=== PATIENT | male | born 1975 | race Two or more races ===

== ENCOUNTER 2024-06-04 22:58 | Inpatient (IN) | payer MEDICARE, MEDICAID, SELFPAY ==
[2024-06-04 23:00] VITALS: BMI 34.8
[2024-06-04 23:13] VITALS: BP 88/62; PULSE 129; RESP 19; TEMP 36.8; O2SAT 98
--- NOTE | 2024-06-04 23:24 | EKG_ITS ---
[facility] Test Date: 2024-06-04 Pat Name: HECTOR JUSTICE Department: Room: - Gender: Male Windows Administrator: : 1975 Requested By: Pacheco Gramajo Order Number: [id number] Reading MD: Pacheco Gramajo Measurements Intervals [place] Rate: 119 P: 64 MD: 146 QRS: 248 QRSD: 98 T: 64 QT: 319 QTc: 450 Interpretive Statements SINUS TACHYCARDIA RIGHT VENTRICULAR HYPERTROPHY [SOME/ALL OF: PROMINENT R IN V1, LATE TRANSITION, RAD, JENI, SSS] POSSIBLE ANTERIOR MYOCARDIAL INFARCTION , OF INDETERMINATE AGE [30 ms Q WAVE IN V3/V4, OR R < 0.2 mV IN V4] Compared to ECG 02/08/2021 18:41:30 Atrial abnormality now present Right ventricular hypertrophy now present Myocardial infarct finding now present Sinus rhythm no longer present Intraventricular conduction delay no longer present /store/S0/[id number].pdf
--- NOTE | 2024-06-04 23:24 | XR_ITS ---
Examination: AP chest single view Technique one AP portable upright chest single view Exam date and time: June 05, 2024 0010 hours Indications sepsis today FINDINGS: Early bibasilar pneumonia Normal heart size Mild osteopenia IMPRESSION: Early bibasilar pneumonia
--- NOTE | 2024-06-04 23:25 | PD.EDRME ---
Rapid Medical Screening Exam E Arrival date/time: 06/04/24 22:58 48 year old male present to ED for c/o vomiting, weakness. I have greeted and performed a focused initial assessment of this patient. A comprehensive ED assessment and evaluation of the patient, analysis of all test results, and completion of the medical decision making process will be conducted by additional ED providers. Chief Complaint: Fever Time Seen by Provider: 06/04/24 23:05 Vital signs: Vital Signs Temperature 98.2 F 06/04/24 23:13 Pulse Rate 129 H 06/04/24 23:13 Respiratory Rate 19 06/04/24 23:13 Blood Pressure 88/62 L 06/04/24 23:13 Pulse Oximetry (%) 98 06/04/24 23:13 Oxygen Delivery Method Room Air 06/04/24 23:13
[2024-06-05] VITALS (77 sets, daily range): BP systolic 56–126; BP diastolic 36–82; PULSE 75–118; RESP 7–99; TEMP 35.9–37.1; O2SAT 91–100
[2024-06-05 00:15] LABS: Lactate (Lactic Acid) 4.8 mMol/L (0.4-2.0)
[2024-06-05 00:17] LABS: Basophils # (Auto) 0.2 Thou/mm3 (0.0-0.2); Basophils % (Auto) 1 % (0-2.5); Eosinophils # (Auto) 0.3 Thou/mm3 (0.0-0.5); Eosinophils % (Auto) 2 % (0-10); Hematocrit 59.2 % (41.0-53.0); Hemoglobin 18.9 g/dL (13.5-16.0); Immature Granulocytes % (Auto) 1 % (0-0); Immature Granulocytes Auto 0.12 Thou/mm3 (0.00-0.00); Lymphocytes # (Auto) 3.5 Thou/mm3 (1.0-4.8); Lymphocytes % (Auto) 19 % (10-50); Mean Corpuscular HGB Conc 31.9 g/dl (31.0-37.0); Mean Corpuscular Hemoglobin 26.3 pg (25.0-35.0); Mean Corpuscular Volume 82 fL (80-100); Monocytes # (Auto) 1.5 Thou/mm3 (0.0-0.8); Monocytes % (Auto) 8 % (0-12); Neutrophils # (Auto) 13.4 Thou/mm3 (1.8-7.7); Neutrophils % (Auto) 70 % (37-80); Nucleated Red Blood Cell # 0.08 Thou/mm3 (0.00-0.00); Nucleated Red Blood Cell % 0 /100 WBC (0); Platelet Count 217 Thou/mm3 (140-440); RDW Standard Deviation 51.3 fL (35.1-43.9); Red Blood Count 7.19 Miln/mm3 (4.50-5.90)
[2024-06-05 00:54] LABS: INR 1.1 (0.9-1.3); Partial Thromboplastin Time 27.2 Seconds (22.0-36.0); Prothrombin Time 11.9 Seconds (9.0-12.2)
[2024-06-05] MEDS: SODIUM CHLORIDE 0.9% 250 ML 250 ML 500 ML IV (01:05)
[2024-06-05 01:20] LABS: Alanine Aminotransferase 30 U/L (10-49); Albumin, Serum 5.2 gm/dL (3.5-5.0); Albumin/Globulin Ratio 1.4 (1.2-2.2); Alkaline Phosphatase 280 U/L (46-116); Anion Gap 19 (7-16); Aspartate Amino Transferase 74 U/L (0-34); BUN/Creatinine Ratio 4 Ratio (12-20); Bilirubin,Total 3.8 mg/dL (0.3-1.2); Blood Urea Nitrogen 53 mg/dL (9-23); Calcium 10.8 mg/dL (8.3-10.6); Calcium (Corrected) 10.8 mg/dL (8.5-10.1); Carbon Dioxide 23.2 mMol/L (20.0-31.0); Chloride 90 mMol/L (98-107); Globulin 3.7 gm/dL (2.3-3.5); Glucose 211 mg/dL (74-106); Osmolality,Calculated 284 (275-295); Potassium 4.5 mMol/L (3.4-5.1); Procalcitonin 14.44 ng/ml (0.0-0.49); Sodium 132 mMol/L (136-145); Total Protein 8.9 gm/dL (5.7-8.2); eGFR 4 See Note
[2024-06-05 01:37] LABS: Creatinine (Component) 13.2 mg/dL (0.6-1.3)
[2024-06-05 01:38] LABS: Troponin I 0.078 ng/mL (0.0-0.045)
--- NOTE | 2024-06-05 01:40 | EDNOTE_ITS ---
ED Fever RME/HPI General Chief Complaint: Fever Stated Complaint: fever, vomitting, weakness since 9am Time Seen by Provider: 06/04/24 23:05 Arrival date/time: 06/04/24 22:58 Limitations: no limitations RME / HPI RME / HPI Narrative: 06/04/24 22:58 48 year old male present to ED for c/o vomiting, weakness. I have greeted and performed a focused initial assessment of this patient. A comprehensive ED assessment and evaluation of the patient, analysis of all test results, and completion of the medical decision making process will be conducted by additional ED providers. -------- Dr. Herron's Main ED Evaluation: 48yo male with pmhx DM, HTN, renal disease on HD (followed by Dr. Russ) presents to the ED for a chief complaint of weakness x this morning. Patient states he began feeling weak after having dialysis this morning, reporting he felt nauseous and had generalized body cramping. Also notes he's been vomiting and gaining weight. He states they've been needing to take more fluids off at dialysis. He denies any fever, chills or any other associated symptoms. Related Data Home Medications ?Medication ?Instructions ?Recorded ?Confirmed alprazolam 0.5 mg tablet 0.5 mg PO QDAY PRN Anxiety 08/21/23 08/21/23 hydralazine 100 mg tablet 100 mg PO TID 08/21/23 08/21/23 linagliptin 5 mg tablet (Tradjenta) 5 mg PO QDAY 08/21/23 08/21/23 omeprazole 40 mg capsule,delayed 40 mg PO QDAY 08/21/23 08/21/23 release sucroferric oxyhydroxide 500 mg 500 mg PO 08/21/23 chewable tablet (Velphoro) Previous Rx's ?Medication ?Instructions ?Recorded aspirin 81 mg tablet,delayed 81 mg PO QDAY #30 tabs 05/16/20 release atorvastatin 80 mg tablet 80 mg PO HS 30 days #30 tabs 04/25/22 ciprofloxacin HCl 500 mg tablet 500 mg PO BID #20 tabs 11/17/23 (Cipro) metronidazole 500 mg tablet 500 mg PO TID #21 tabs 11/17/23 Allergies Allergy/AdvReac Type Severity Reaction Status Date / Time pollen extracts Allergy Severe Sneezing Verified 11/17/23 05:26 sulfamethoxazole Allergy Severe Hives Verified 11/17/23 05:26 [From Bactrim] trimethoprim [From Bactrim] Allergy Hives Verified 11/17/23 05:26 Review of Systems Review of Systems Systems Reviewed: All systems reviewed, normal except as documented Past Medical History Past Medical History NEUROLOGIC: Negative Neurological Disorders or Seizures CARDIAC: Positive Cardiac Disorders, Hypercholesterolemia and Hypertension; Negative Congestive Heart Failure RESPIRATORY: Positive Sleep Apnea; Negative Chronic Obstructive Pulmonary Disease (COPD) GASTROINTESTINAL: Positive Obesity; Negative Gastrointestinal Disorders GENITOURINARY: Positive Genitourinary Disorders, Renal Disease and Dialysis (saturday, , saturday) MUSCULOSKELETAL: Negative Musculoskeletal Disorders ENT: Positive Cataracts ENDOCRINE: Positive Endocrine Disorders, Diabetes Mellitus Type 2 and Hypothyroidism; Negative Diabetes Mellitus Type 1 HEMATOLOGIC: Negative Blood Disorders OTHER HISTORY: Positive Chicken Pox; Negative Hospitalization, Autoimmune Disease, Falls, Blood Transfusions, Anesthesia Reactions, MRSA, Measles, Mumps or Cancer Family History FAMILY HISTORY: Positive Family Cardiac Disorders; Negative Family Psychiatric Problems, Family Respiratory Disorders, Family Gastrointestinal Problems, Family Cancer, Family Surgery or Family Anesthesia Reaction Surgical History SURGICAL: Positive Coronary Stent (x 6) and Amputation (left bka and) Social History SMOKING STATUS: Never smoker SUBSTANCE USE: does not use Physical Exam General Limitations: no limitations General appearance: alert and in no apparent distress Head Head exam: atraumatic Eye Eye exam: Present normal appearance, PERRL and EOMI; Absent scleral icterus ENT ENT exam: Present normal exam, normal oropharynx and mucous membranes dry Neck Neck exam: Present normal inspection, full ROM and trachea midline Chest Chest inspection: Present normal inspection and symmetric chest wall rise Respiratory Respiratory exam: Present normal lung sounds bilaterally Cardiovascular Cardiovascular exam: Present regular rate, normal rhythm and normal heart sounds Abdominal Exam Abdominal exam: Present soft and normal bowel sounds; Absent Mak's sign Extremities Exam Extremities exam: Present normal inspection and full ROM Back Exam Back exam: Present normal inspection and full ROM Neurological Exam Neurological exam: Present alert, oriented X3 and CN II-XII intact; Absent motor sensory deficit Psychiatric Psychiatric exam: Present normal affect and normal mood Skin Skin exam: Present warm, dry, intact and normal color ED Exam General Limitations: Present no limitations General appearance: Present alert and in no apparent distress Head Head exam: Present atraumatic Eye Eye exam: Present normal appearance, PERRL and EOMI; Absent scleral icterus ENT ENT exam: Present normal exam, normal oropharynx and mucous membranes dry Neck Neck exam: Present normal inspection, full ROM and trachea midline Chest Chest inspection: Present normal inspection and symmetric chest wall rise Respiratory Respiratory exam: Present normal lung sounds bilaterally Cardiovascular Cardiovascular exam: Present regular rate, normal rhythm and normal heart sounds Abdominal Exam Abdominal exam: Present soft and normal bowel sounds; Absent Mak's sign Extremities Exam Extremities exam: Present normal inspection and full ROM Back Exam Back exam: Present normal inspection and full ROM Neurological Exam Neurological exam: Present alert, oriented X3 and CN II-XII intact; Absent motor sensory deficit Psychiatric Psychiatric exam: Present normal affect and normal mood Skin Skin exam: Present warm, dry, intact and normal color Course Course Course Narrative: CXR is ordered for determining the etiology of weakness. Quality Measures none Orders Category Date Time Status Bedside Blood Glucose NOW Care 06/04/24 23:24 Active Bedside COVID-19 Antigen Test NOW Care 06/04/24 23:24 Active Bedside Influenza A&B Antigen Test NOW Care 06/04/24 23:24 Completed Insurance Claims Examiner Q4H START 00 Care 06/04/24 23:24 Active Insert IV NOW Care 06/04/24 23:24 Active Strict Intake and Output Routine Care 06/04/24 23:[address] abdomen pelvis wo con Stat Exams 06/05/24 02:31 Taken US gall bladder Stat Exams 06/05/24 02:31 Taken XR chest 1V SEPSIS PROTOCOL Stat Exams 06/04/24 23:24 Taken Blood Culture (Lab) Stat Lab 06/04/24 23:24 Received CBC Stat Lab 06/04/24 23:24 Completed Comprehensive Metabolic Panel Stat Lab 06/04/24 23:24 Completed Lactate (Lactic Acid) Stat Lab 06/04/24 23:24 Completed Lactic Acid, 3 HR Stat Lab 06/05/24 04:35 Completed Partial Thromboplastin Time Stat Lab 06/04/24 23:24 Completed Procalcitonin Stat Lab 06/04/24 23:24 Completed Prothrombin Time with INR Stat Lab 06/04/24 23:24 Completed Troponin I Stat Lab 06/04/24 23:24 Completed Troponin I Stat Lab 06/05/24 02:20 Completed Ondansetron Inj [Zofran Inj] Med 06/05/24 01:38 Discontinued 4 mg IV X1 ONE Sodium Chloride 0.9% 1000 ml [Ns] 2,259 ml Med 06/05/24 00:45 Discontinued IV 2,259 mls/hr Sodium Chloride 0.9% 250 ml [Ns] 250 ml Med 06/05/24 01:03 Discontinued IV 500 mls/hr Sodium Chloride 0.9% 250 ml [Ns] 250 ml Med 06/05/24 01:15 Discontinued IV 500 mls/hr EKG (RT) Stat RT 06/04/24 23:24 Draft Oxygen Delivery NOW RT 06/04/24 23:24 Active Reevaluation(s) Reevaluation #1: Discussed results with the patient at bedside. Patient is agreable to getting radiologic diagnostic tests. Time: 02:29 Vital Signs Vital signs: Vital Signs Temperature 98.2 F 06/04/24 23:13 Pulse Rate 129 H 06/04/24 23:13 Respiratory Rate 19 06/04/24 23:13 Blood Pressure 88/62 L 06/04/24 23:13 Pulse Oximetry (%) 98 06/04/24 23:13 Oxygen Delivery Method Room Air 06/04/24 23:13 Fever MDM Narrative MDM Narrative:: 0204: Repeat BP is 94/73, which is his baseline per the patient. Patient data External records reviewed:: [facility] previous records (Per chart review, patient was seen here on 11/17/23 for colitis.) Clinical information provided by:: patient Social determinants that could affect healthcare access:: none Patient has the following chronic illnesses:: HTN, HLD, DM, ESRD on HD How is presenting disease/condition affected by chronic disease/condition?: caused by Evaluation data The following diagnostics were reviewed and interpreted by me:: lab results, radiology exam(s) and EKG tracing(s) Lab and/or radiology exams considered but not ordered:: none Interpretation Summary: WBC count is elevated at 19.0, HnH is elevated, Creatinine is elevated at 13.2, Lactic Acid is elevated at 4.8, Total Bilirubin is elevated at 3.8, Troponin is elevated at 0.078, Procalcitonin is elevated at 14.44, Bedside COVID and Influenza are negative, according to my interpretation. CXR EKG done at 2336, sinus tachycardia, rate of 119, ------- [facility] Preliminary Report Draft Patient: HECTOR JUSTICE Med. Record#: [id number] Birthdate: 1975 Age/Sex: 48 / M Location: [facility] Attending Dr: Ordering Physician: Date of Service: Procedure(s): Accession Number(s): cc: ~ Right upper quadrant abdominal ultrasound. June 05, 2024 0300 hours Clinical history: Elevated LFTS, hypotension, abdominal pain today Comparison: None Findings: The evaluation is limited due to overlying bowel gas The liver measures 16.6 cm and demonstrates heterogeneous echogenicity. No intrahepatic biliary ductal dilatation. The main portal vein is patent and demonstrates hepatopetal flow. No gallbladder calculus, wall thickening or pericholecystic fluid is demonstrated. The common bile duct is normal in caliber at 2.7 mm. The pancreas is obscured by overlying bowel gas and not visualized. The inferior vena cava is unremarkable to the extent visualized. Impression: No sonographic evidence of cholelithiasis, acute cholecystitis or biliary obstruction. Heterogeneous echotexture of the liver, suggestive of liver parenchymal disease. Report Electronically Signed By: Agnes Thomas 06/05/2024 4:08:57 AM [EST] [facility] Preliminary Report Draft [id number] Birthdate: 1975 Age/Sex: 48 / M Location: [facility] Attending Dr: Ordering Physician: Date of Service: Procedure(s): Accession Number(s): cc: ~ CT scan of the abdomen and pelvis without intravenous contrast (axial sections with sagittal and coronal reformats) June 05, 2024 0411 hours Clinical History: 89 yo esrd, elevated LFT's Findings: There is mild heterogeneous attenuation of the lower lungs, suggestive of small airways disease. The liver, gallbladder, pancreas, spleen, kidneys and adrenals are unremarkable on this noncontrast study. No evidence of bowel obstruction. The appendix is within normal limits. There is no mesenteric or retroperitoneal adenopathy. The urinary bladder is unremarkable. There is no free fluid or free air. Degenerative changes are identified in the spine. Impression: No evidence of acute intra-abdominal or pelvic pathology. Other findings as described above. Report Electronically Signed By: Agnes Thomas 06/05/2024 5:02:47 AM [EST] Medications / Prescriptions Medications or Prescriptions considered but not ordered:: none Medication administrations:: Medication Administration History Discontinued Medications Sodium Chloride (Ns) 2,259 mls @ 2,259 mls/hr 30 ml/kg infuse over 60 min (2259 ml) IV .Q1H ONE Stop: 06/05/24 01:44 Last Admin: 06/05/24 01:03 Dose: Not Given Documented By: KG Non-Admin Reason: Discontinued Sodium Chloride (Ns) 250 mls @ 500 mls/hr IV .Q30M VINCENT Stop: 07/05/24 01:14 Sodium Chloride (Ns) 250 mls @ 500 mls/hr IV .Q30M ONE Stop: 06/05/24 01:32 Last Infusion: 06/05/24 01:35 Dose: Infused Documented By: Admin: 06/05/24 01:05 Dose: 500 mls/hr Documented By: KG Ondansetron HCl (Ondansetron Inj 2 Mg/Ml Inj 2 Ml) 4 mg IV X1 ONE; Protocol Stop: 06/05/24 01:39 Last Admin: 06/05/24 01:56 Dose: 4 mg Documented By: KG see above Consultations Consultation(s) initiated? (list below): No Diagnosis Fever Differential Diagnosis: other (viral syndrome, enteritis, electrolyte ab, postop hypotension from dialysis) Most likely diagnosis given after review of the tests above:: pending at sign out. Admission Indicated Admission indicated?: not indicated Admission Request Was there a request for admission?: No Disposition Plan Disposition Plan: other (specify) (Signed out to Dr. Edwards at 0600 pending re- evaluation and final disposition.) Discharge Plan Plan Disposition Comment: Stable at signout Prescriptions/Referrals Prescriptions/Med Rec: No Action aspirin 81 mg tablet,delayed release (DR/EC) 81 mg PO QDAY Qty: 30 0RF Rx Instructions: Please start no sooner than 05/19/20. alprazolam 0.5 mg Tablet 0.5 mg PO QDAY PRN (Reason: Anxiety) Hold Instructions: Resume on 08/22/23. omeprazole 40 mg capsule,delayed release(DR/EC) 40 mg PO QDAY hydralazine 100 mg tablet 100 mg PO TID Tradjenta 5 mg tablet 5 mg PO QDAY Patient Comments: TAKE 1 TABLET BY MOUTH EVERY DAY Velphoro 500 mg tablet,chewable 500 mg PO Patient Comments: TAKE 2 TABLETS BY MOUTH WITH MEALS THREE TIMES DAILY ciprofloxacin HCl [Cipro] 500 mg tablet 500 mg PO BID Qty: 20 0RF metronidazole 500 mg tablet 500 mg PO TID Qty: 21 0RF atorvastatin 80 mg tablet 80 mg PO HS 30 Days Qty: 30 2RF Referrals: Conrad Garduno MD [Primary Care Provider] - In 1 week Problem List Clinical Impression: Sepsis, End stage renal disease, Elevated lactic acid level, Elevated troponin Patient/Caregiver Discharge Instructions Print Language: Ghanaian
[2024-06-05] MEDS: ONDANSETRON INJ 2 MG/ML INJ 2 ML 4 MG IV (01:56)
--- NOTE | 2024-06-05 02:05 | PC.NURSE ---
Dr. Herron at the bedside.
--- NOTE | 2024-06-05 02:30 | PC.NURSE ---
Dr. Herron at the bedside.
--- NOTE | 2024-06-05 02:31 | XR_ITS ---
Examination: CT abdomen and pelvis without contrast. Coronal 3-D reconstructions. Sagittal 2-D reconstructions. Date and time of exam:June 05, 2024 at 0411 hrs. Comparison December 26, 2023 Indications: Onset abdominal pain fever vomiting weakness beginning 9:00 AM June 04, 2024 CTDI: vol (mGy): 13.1 DLP: (mGycm): 941 Technique: Axial images of the abdomen have been obtained, 3 mm slice thickness Intravenous contrast material has not been administered. Low dose protocols were performed. One or more of the following dose reduction techniques were used; automated exposure control, adjustment of the mA and/or KV according to patient size, use of iterative reconstruction technique. Findings: Heavy coronary artery calcification No visualized liver or splenic lesion No gallstones No pancreatic or adrenal mass Aorta normal size Atrophic kidneys with renal arterial calcification, no hydronephrosis or ureteral calculi Normal appendix No bowel obstruction No diverticulitis Contracted urinary bladder Transverse prostate dimension 4 cm The osseous structures are intact with degenerative change lumbar spine and mild old wedging thoracolumbar vertebral bodies Impression: Atrophic kidneys No acute process in the abdomen or pelvis
--- NOTE | 2024-06-05 02:31 | XR_ITS ---
Examination: Abdomen sonogram, Limited Date and time of exam: June 05, 2024 at 0300 hrs. Indications: Abdominal pain after dialysis today, elevated liver function tests on laboratory examination June 04, 2024 Technique: Real-time ureña scale transabdominal sonographic images of the upper abdomen obtained. Findings: Negative for gallstones Gallbladder wall 0.30 cm Common bile duct 0.30 cm no stones Pancreas obscured by bowel gas Liver 16.6 cm fatty infiltration no focal liver lesions Normal hepatopedal portal venous flow Patent IVC Impression: Negative for cholelithiasis No gallbladder wall edema or significant thickening No common bile duct stones Fatty liver
--- NOTE | 2024-06-05 03:05 | PC.NURSE ---
line service technician at the bedside for exam.
[2024-06-05 03:07] LABS: Reflex Lactate? Y
[2024-06-05 03:39] LABS: Troponin I 0.075 ng/mL (0.0-0.045)
--- NOTE | 2024-06-05 04:06 | PC.NURSE ---
Pt to CT scan via [facility] at this time.
--- NOTE | 2024-06-05 04:09 | PRELIM_ITS ---
Right upper quadrant abdominal ultrasound. June 05, 2024 0300 hours Clinical history: Elevated LFT S, hypotension, abdominal pain today Comparison: NoneFindings:The evaluation is limited due to overl melissa bowel gas The liver measures 16.6 cm and demonstrates heterogeneous echogenicity. No intrahepati c biliary ductal dilatation. The main portal vein is patent and demonstrates hepatopetal flow. No gal lbladder calculus, wall thickening or pericholecystic fluid is demonstrated. The common bile duct is normal in caliber at 2.7 mm. The pancreas is obscured by overlying bowel gas and not visualized. The inferior vena cava is unremarkable to the extent visualized. Impression:No sonographic evidence of ch olelithiasis, acute cholecystitis or biliary obstruction. Heterogeneous echotexture of the liver, sug gestive of liver parenchymal disease. Report Electronically Signed By: Agnes Thomas 06/05/2024 4:08:57 AM [EST]
[2024-06-05 04:50] LABS: Lactic Acid, 3 HR 2.5 mMol/L (0.4-2.0)
--- NOTE | 2024-06-05 05:03 | PRELIM_ITS ---
CT scan of the abdomen and pelvis without intravenous contrast (axial sections with sagittal and daily nal reformats) June 05, 2024 0411 hours Clinical History: 89 yo esrd, elevated LFT's Findings:The re is mild heterogeneous attenuation of the lower lungs, suggestive of small airways disease. The jeremiah er, gallbladder, pancreas, spleen, kidneys and adrenals are unremarkable on this noncontrast study.No evidence of bowel obstruction. The appendix is within normal limits. There is no mesenteric or retro peritoneal adenopathy.The urinary bladder is unremarkable. There is no free fluid or free air.Degener ative changes are identified in the spine. Impression:No evidence of acute intra-abdominal or pelvic pathology.Other findings as described above. Report Electronically Signed By: Agnes Thomas 06/05/2024 5 :02:47 AM [EST]
--- NOTE | 2024-06-05 06:23 | EDNOTE_ITS ---
Emergency Room Addendum Addendum Narrative: 0600: Care assumed from Dr. Herron, the previous shift emergency physician. Past medical, surgical, social and family history reviewed. Vitals and home medications reviewed. I will assume the care of the patient at this time, pending re-evaluation and final disposition. Please refer to the emergency department record for history and examination from initial visit.? Physical exam by me shows patient under no acute distress at this time. Patient had increased liver enzymes, pending radiology as a signout. However, looking at previous labs, lactic acid was 4.8 and WBC 19, patient met sepsis criteria on arrival, plan for redrawing labs and reevaluation. Orders made at this time are congruent with ED Adult Sepsis Order List. Re-evaluation is to be completed. 1048: Fluids started. 1120: Sepsis reassessment performed consisting of lab review, vitals, physical exam including auscultation of heart, lungs, and visual evaluation of capillary refills, mucosal membranes and extremities. 1130: Discussed test HPI, PMHx, lab, radiology results and/or management with hospitalist. Will admit for further evaluation and management. Accepts patient for admission. CRITICAL CARE: TIME: 30 minutes for sepsis The high probability of sudden, clinically significant deterioration in the patient?s condition required the highest level of my preparedness to intervene urgently. The services I provided to this patient were to treat and/or prevent clinically significant deterioration. Services included the following: chart data review, reviewing nursing notes and/or old charts, documentation time, community resource consultant collaboration regarding findings and treatment options, medication orders and management, direct patient care, vital sign assessments and ordering, interpreting and reviewing diagnostic studies and lab tests. Aggregate critical care time includes only time during which I was engaged in work directly related to the patient?s care, as described above, whether at bedside or elsewhere in the Emergency Department. It did not include time spent performing other reported procedures or the services of residents, students, nurses or physician assistants. RADIOLOGY Procedure(s): US gall bladder Accession Number(s): [id number] cc: Conrad Garduno MD; Judd Welch MD; Terese Herron MD~ Examination: Abdomen sonogram, Limited Date and time of exam: June 05, 2024 at 0300 hrs. Indications: Abdominal pain after dialysis today, elevated liver function tests on laboratory examination June 04, 2024 Technique: Real-time ureña scale transabdominal sonographic images of the upper abdomen obtained. Findings: Negative for gallstones Gallbladder wall 0.30 cm Common bile duct 0.30 cm no stones Pancreas obscured by bowel gas Liver 16.6 cm fatty infiltration no focal liver lesions Normal hepatopedal portal venous flow Patent IVC Impression: Negative for cholelithiasis No gallbladder wall edema or significant thickening No common bile duct stones Fatty liver Dictated By: Judd Welch MD Procedure(s): CT abdomen pelvis wo con Accession Number(s): [id number] cc: Conrad Garduno MD; Judd Welch MD; Terese Herron MD~ Examination: CT abdomen and pelvis without contrast. Coronal 3-D reconstructions. Sagittal 2-D reconstructions. Date and time of exam:June 05, 2024 at 0411 hrs. Comparison December 26, 2023 Indications: Onset abdominal pain fever vomiting weakness beginning 9:00 AM June 04, 2024 CTDI: vol (mGy): 13.1 DLP: (mGycm): 941 Technique: Axial images of the abdomen have been obtained, 3 mm slice thickness Intravenous contrast material has not been administered. Low dose protocols were performed. One or more of the following dose reduction techniques were used; automated exposure control, adjustment of the mA and/or KV according to patient size, use of iterative reconstruction technique. Findings: Heavy coronary artery calcification No visualized liver or splenic lesion No gallstones No pancreatic or adrenal mass Aorta normal size Atrophic kidneys with renal arterial calcification, no hydronephrosis or ureteral calculi Normal appendix No bowel obstruction No diverticulitis Contracted urinary bladder Transverse prostate dimension 4 cm The osseous structures are intact with degenerative change lumbar spine and mild old wedging thoracolumbar vertebral bodies Impression: Atrophic kidneys No acute process in the abdomen or pelvis Dictated By: Judd Welch MD Procedure(s): XR chest 1V SEPSIS PROTOCOL Accession Number(s): [id number] cc: Conrad Garduno MD; Judd Welch MD; Pacheco Quinones PA-C~ Examination: AP chest single view Technique one AP portable upright chest single view Exam date and time: June 05, 2024 0010 hours Indications sepsis today FINDINGS: Early bibasilar pneumonia Normal heart size Mild osteopenia IMPRESSION: Early bibasilar pneumonia Dictated By: Judd Welch MD
[2024-06-05 08:55] LABS: Basophils # (Auto) 0.1 Thou/mm3 (0.0-0.2); Basophils % (Auto) 1 % (0-2.5); Eosinophils # (Auto) 0.2 Thou/mm3 (0.0-0.5); Eosinophils % (Auto) 1 % (0-10); Hematocrit 56.2 % (41.0-53.0); Hemoglobin 17.8 g/dL (13.5-16.0); Immature Granulocytes % (Auto) 1 % (0-0); Immature Granulocytes Auto 0.09 Thou/mm3 (0.00-0.00); Lymphocytes # (Auto) 2.5 Thou/mm3 (1.0-4.8); Lymphocytes % (Auto) 15 % (10-50); Mean Corpuscular HGB Conc 31.7 g/dl (31.0-37.0); Mean Corpuscular Hemoglobin 26.3 pg (25.0-35.0); Mean Corpuscular Volume 83 fL (80-100); Monocytes # (Auto) 1.6 Thou/mm3 (0.0-0.8); Monocytes % (Auto) 10 % (0-12); Neutrophils # (Auto) 12.2 Thou/mm3 (1.8-7.7); Neutrophils % (Auto) 73 % (37-80); Nucleated Red Blood Cell # 0.05 Thou/mm3 (0.00-0.00); Nucleated Red Blood Cell % 0 /100 WBC (0); Platelet Count 212 Thou/mm3 (140-440); RDW Standard Deviation 51.9 fL (35.1-43.9); Red Blood Count 6.78 Miln/mm3 (4.50-5.90); White Blood Count 16.8 Thou/mm3 (3.8-10.6)
[2024-06-05 09:23] LABS: Alanine Aminotransferase 23 U/L (10-49); Albumin, Serum 5.2 gm/dL (3.5-5.0); Albumin/Globulin Ratio 1.5 (1.2-2.2); Alkaline Phosphatase 246 U/L (46-116); Anion Gap 18 (7-16); Aspartate Amino Transferase 62 U/L (0-34); BUN/Creatinine Ratio 4 Ratio (12-20); Bilirubin,Total 3.3 mg/dL (0.3-1.2); Blood Urea Nitrogen 59 mg/dL (9-23); Calcium 10.9 mg/dL (8.3-10.6); Calcium (Corrected) 10.9 mg/dL (8.5-10.1); Carbon Dioxide 23.1 mMol/L (20.0-31.0); Chloride 89 mMol/L (98-107); Creatinine (Component) 13.3 mg/dL (0.6-1.3); Estimated Creatinine Clearance 8.9 mL/min (>60); Globulin 3.5 gm/dL (2.3-3.5); Glucose 94 mg/dL (74-106); Osmolality,Calculated 277 (275-295); Procalcitonin 16.23 ng/ml (0.0-0.49); Sodium 130 mMol/L (136-145); Total Protein 8.7 gm/dL (5.7-8.2); eGFR 4 See Note
[2024-06-05] MEDS: SODIUM CHLORIDE 0.9% 250 ML 250 ML 125 ML IV (10:48)
[2024-06-05] MEDS: PIPER/TAZO 3.375 GM 3.375 GM/50 ML BAG IV (10:49)
[2024-06-05] MEDS: Vancomycin Inj 1,000 MG in SODIUM CHLORIDE 0.9% 250 ML 250 ML 150 MG IV (11:16)
[2024-06-05] MEDS: AZITHROMYCIN 250 MG TABLET 500 MG PO (13:16)
[2024-06-05] MEDS: PANTOPRAZOLE INJ 40 MG VIAL IVP (13:17)
[2024-06-05] MEDS: cefTRIAXone/D5w 1gm IV premix 50 ML IV (13:17)
[2024-06-05] MEDS: DEXTROSE 50%-WATER INJ 50 ML SYRINGE IV (13:20)
[2024-06-05] MEDS: INSULIN HUM REGULAR 1 UNIT/0.01 ML (PER UNIT) 5 UNIT IV (13:33)
[2024-06-05 13:37] LABS: Potassium 5.6 mMol/L (3.4-5.1)
[2024-06-05] MEDS: HEPARIN SOD INJ 5000 UNIT/ML VIAL SC ×2 (13:42→22:31)
--- NOTE | 2024-06-05 15:11 | ESHP_ITS ---
<Statement entered by Alivia Story MD - 06/05/24 20:51> I discussed with and supervised my co-resident involved in the care of this patient. I agree with the assessment and plan as documented above. Alivia Story,PGY-3 Disclaimer: Despite multiple revisions, due to the dictation software being used, the document below may not be free of grammatical errors including phonetic/typographic errors. However, this does not deter from our commitment to providing health care in the patient's best interest in mind. Documentation for date of: 06/05/24 HPI History of Present Illness Chief complaint: N/V/weakness History of present illness: 48-year-old male with past medical history of DM2, ESRD (on hemodialysis), hypertension, CAD s/p stents, and hyperlipidemia was admitted to hospital on 06/05/2024 after coming to the ED with complaints of nausea, vomiting, and weakness since the day prior to admission. Patient stated that he has been having similar symptoms right after dialysis in the past, but at this time his nausea and vomiting was a lot worse than prior times and he decided to come to the ER. Patient denies any chest pain, shortness of breath, syncopal episode, changes in bowels or urination, abdominal pain, or cough. During assessment patient had last hemodialysis yesterday he states that his AV fistula usually clots, but has been used without any issues upto now. ED course: Patient came in afebrile, tachycardic and hypotensive. Initial labs were relevant for leukocytosis (19), Hgb (18.9), hyponatremia (132), hyperkalemia (5.6), elevated anion gap (18), BUN 59, creatinine 13.3, lactic acidosis (4.8 and down trended to 2.5), hyperbilirubinemia (3.8 and down trended to 3.3), elevated troponins 0.078 and down trended to 0.075, and procalcitonin elevated at 16.23. Initial imaging included chest x-ray which showed bibasilar pneumonia, abdomen/pelvis CT which did not show any acute process in the abdomen or pelvis, and gallbladder ultrasound which did not show any cholelithiasis or cholecystitis. PMH: As above Social Hx: Denies any current smoking, drugs, or alcohol. Prior use of cocaine in the past and smoking once in a while in his late teens. Surgical Hx: Right BKA, left toe amputation (), and cataracts Review of Systems Review of Systems Narrative Review of Systems: Constitutional: Denies sweats, Denies weight loss/gain, Denies fever, Denies chills. HEENT: Denies hearing loss, Denies ear pain, Denies postnasal drip, Denies double vision, Denies blurry vision. Respiratory: Denies shortness of breath, Denies cough, Denies wheezing. Cardiovascular: Denies chest pain, Denies palpitations, Denies sudden loss of consciousness. GI: Denies blood in stool, Denies constipation, Denies abdominal pain, Denies difficulty swallowing, Admits nausea and vomit. : Denies urinary incontinence, Denies pain while urinating, Denies increased urinary frequency. MSK: Denies joint pain, Denies joint swelling, Denies numbness. Skin: Denies rash, Denies itching, Denies easy bruising. Neuro: Denies headaches, Denies dizziness, Denies seizures. Past Medical History Past Medical History NEUROLOGIC: Negative Neurological Disorders or Seizures CARDIAC: Positive Cardiac Disorders, Hypercholesterolemia and Hypertension; Negative Congestive Heart Failure RESPIRATORY: Positive Sleep Apnea; Negative Chronic Obstructive Pulmonary Disease (COPD) GASTROINTESTINAL: Positive Obesity; Negative Gastrointestinal Disorders GENITOURINARY: Positive Genitourinary Disorders, Renal Disease and Dialysis (saturday, , saturday) MUSCULOSKELETAL: Negative Musculoskeletal Disorders ENT: Positive Cataracts ENDOCRINE: Positive Endocrine Disorders, Diabetes Mellitus Type 2 and Hypothyroidism; Negative Diabetes Mellitus Type 1 HEMATOLOGIC: Negative Blood Disorders OTHER HISTORY: Positive Chicken Pox; Negative Hospitalization, Autoimmune Disease, Falls, Blood Transfusions, Anesthesia Reactions, MRSA, Measles, Mumps or Cancer Family History FAMILY HISTORY: Positive Family Cardiac Disorders; Negative Family Psychiatric Problems, Family Respiratory Disorders, Family Gastrointestinal Problems, Family Cancer, Family Surgery or Family Anesthesia Reaction Surgical History SURGICAL: Positive Coronary Stent (x 6) and Amputation (left bka and) Social History SMOKING STATUS: Never smoker SUBSTANCE USE: does not use Exam Vital Signs Temp Pulse Resp BP Pulse Ox O2 Del Method 97.5 F 103 H 18 66/54 L 91 L Room Air 06/05/24 14:23 06/05/24 15:05 06/05/24 15:05 06/05/24 15:05 06/05/24 15:05 06/05/24 15:05 Narrative Exam General: A/O x3, no acute distress, well-nourished, well-developed Eyes: PERRL, EOMI. Anicteric, vision grossly intact. Ears: No ear pain, no ear discharge, Hearing grossly intact. Nose: No nasal discharge. Mouth/Throat: Moist mucous membranes, no redness, no lesions. Neck: Neck supple, non-tender, no cervical lymphadenopathy. Lungs: Clear CHARLA to auscultation and percussion, No accessory muscle use. Cardio: Normal S1/S2, regular rhythm, no murmurs, no JVD or carotid bruits. Abdomen: Soft, non-tender, no palpable masses, peristalsis present, no guarding or rebound. Extremities: Symmetrical, no peripheral edema , non-tender, peripheral pulses present L LE. 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 Skin: No rashes, no lesions, warm to touch. Neuro: No focal neurological deficits. motor and sensory intact Psych: Cooperative, appropriate mood and effect. Results: Labs 06/06/24 05:33 06/06/24 05:33 Labs: Short CBC 06/04/24 06/05/24 Range/Units 00:00 04:35 WBC 19.0 H 16.8 H (3.8-10.6) Thou/mm3 Hgb 18.9 H* 17.8 H* (13.5-16.0) g/dL Hct 59.2 H 56.2 H (41.0-53.0) % Plt Count 217 212 (140-440) Thou/mm3 BMP 06/04/24 06/05/24 00:00 04:35 Sodium 132 L 130 L Potassium 4.5 5.6 H D Chloride 90 L 89 L Carbon Dioxide 23.2 23.1 BUN 53 H 59 H Creatinine 13.2 H* 13.3 H* Glucose 211 H 94 D Calcium 10.8 H 10.9 H Cardiac Enzymes 06/04/24 06/05/24 Range/Units 00:00 02:20 Troponin I 0.078 H* 0.075 H* (0.0-0.045) ng/mL Liver Function 06/04/24 06/05/24 Range/Units 00:00 04:35 Total Bilirubin 3.8 H 3.3 H D (0.3-1.2) mg/dL AST 74 H 62 H (0-34) U/L ALT 30 23 (10-49) U/L Alkaline Phosphatase 280 H 246 H D (46-116) U/L Albumin 5.2 H 5.2 H (3.5-5.0) gm/dL Quality Measures Quality Measures none Medications Home Medications and Allergies Home Medications ?Medication ?Instructions ?Recorded ?Confirmed ?Type linagliptin 5 mg tablet (Tradjenta) 5 mg PO QDAY 08/21/23 06/05/24 History omeprazole 40 mg capsule,delayed 40 mg PO QDAY 08/21/23 06/05/24 History release sucroferric oxyhydroxide 500 mg 500 mg PO TID 08/21/23 06/05/24 History chewable tablet (Velphoro) apixaban 2.5 mg tablet (Eliquis) 2.5 mg PO BID 06/05/24 06/05/24 History midodrine 5 mg tablet 5 mg PO TID 06/05/24 06/05/24 History Allergies Allergy/AdvReac Type Severity Reaction Status Date / Time pollen extracts Allergy Severe Sneezing Verified 11/17/23 05:26 sulfamethoxazole Allergy Severe Hives Verified 11/17/23 05:26 [From Bactrim] trimethoprim [From Bactrim] Allergy Hives Verified 11/17/23 05:26 Visit Medications Acetaminophen (Acetaminophen 325 Mg Tablet) 650 mg PO Q6H PRN PRN Reason: pain and Fever >100.4 Stop: 07/05/24 12:17 Hydrocodone Bitart/Acetaminophen (Hydrocodone/Apap 5/325 Tablet) 1 tab PO Q4HR PRN PRN Reason: PAIN SCALE 4-10(Mod-Sev Stop: 06/10/24 12:22 Azithromycin (Azithromycin 250 Mg Tablet) 500 mg PO QDAY VINCENT Stop: 06/12/24 12:29 Last Admin: 06/05/24 13:16 Dose: 500 mg Dextrose (Dextrose 50%-Water Inj 50 Ml Syringe) 25 ml IV Q15MIN PRN PRN Reason: BG 50-70 responsive npo pt Stop: 07/05/24 12:22 Dextrose (Dextrose 50%-Water Inj 50 Ml Syringe) 50 ml IV Q15MIN PRN PRN Reason: BG <50 OR BG <70 & pt unresponsive Stop: 07/05/24 12:22 Glucagon (Glucagon Inj 1 Mg Vial) 1 mg IM Q15MIN PRN PRN Reason: BG <70, and no IV access Heparin Sodium (Porcine) (Heparin Sod Inj 5000 Unit/Ml Vial) 5,000 unit SC Q8HR [facility] Stop: 06/19/24 13:59 Last Admin: 06/05/24 13:42 Dose: 5,000 unit Ceftriaxone Sodium/Dextrose (Rocephin/D5w 1gm Iv Premix) 50 mls @ 100 mls/hr IV QDAY [facility] Stop: 06/12/24 12:29 Last Infusion: 06/05/24 14:00 Dose: Infused Sodium Chloride (Ns) 250 mls @ 999 mls/hr IV .Q16M ONE Stop: 06/05/24 15:24 Insulin Human Lispro (Insulin Lispro (Admelog) 1 Unit/0.01 Ml Unit) 0 unit SC ACHS [facility]; Protocol Stop: 07/05/24 16:59 Ondansetron HCl (Ondansetron Inj 2 Mg/Ml Inj 2 Ml) 4 mg IV Q6H PRN; Protocol PRN Reason: NAUSEA OR VOMITING Stop: 07/05/24 12:22 Pantoprazole Sodium (Pantoprazole Inj 40 Mg Vial) 40 mg IVP QDAY [facility] Stop: 07/05/24 12:29 Last Admin: 06/05/24 13:17 Dose: 40 mg Sennosides (Senna Tablet) 1 tab PO QDAY PRN; Protocol PRN Reason: constipation Stop: 07/05/24 12:22 Discontinued Medications Dextrose (Dextrose 50%-Water Inj 50 Ml Syringe) 50 ml IV X1 ONE Stop: 06/05/24 12:29 Last Admin: 06/05/24 13:20 Dose: 50 ml Sodium Chloride (Ns) 2,259 mls @ 2,259 mls/hr 30 ml/kg infuse over 60 min (2259 ml) IV .Q1H ONE Stop: 06/05/24 01:44 Last Admin: 06/05/24 01:03 Dose: Not Given Sodium Chloride (Ns) 250 mls @ 500 mls/hr IV .Q30M [facility] Stop: 07/05/24 01:14 Sodium Chloride (Ns) 250 mls @ 500 mls/hr IV .Q30M ONE Stop: 06/05/24 01:32 Last Infusion: 06/05/24 01:35 Dose: Infused Vancomycin HCl 1,000 mg/ (Sodium Chloride) 250 mls @ 150 mls/hr IV X1 ONE Stop: 06/05/24 12:08 Last Infusion: 06/05/24 13:49 Dose: Infused Piperacillin/Tazobactam/Dextrose (Zosyn) 3.375 gm in 50 mls @ 100 mls/hr IV X1 ONE Stop: 06/05/24 10:58 Last Infusion: 06/05/24 11:41 Dose: Infused Sodium Chloride (Ns) 250 mls @ 125 mls/hr IV .Q2H ONE Stop: 06/05/24 12:46 Last Infusion: 06/05/24 13:49 Dose: Infused Insulin Human Regular (Insulin Hum Regular 1 Unit/0.01 Ml (Per Unit)) 5 unit IV X1 ONE Stop: 06/05/24 12:29 Last Admin: 06/05/24 13:33 Dose: 5 unit Ondansetron HCl (Ondansetron Inj 2 Mg/Ml Inj 2 Ml) 4 mg IV X1 ONE; Protocol Stop: 06/05/24 01:39 Last Admin: 06/05/24 01:56 Dose: 4 mg Assessment & Plan Plan 48-year-old male with past medical history of DM2, ESRD (on hemodialysis), hypertension, CAD s/p stents, and hyperlipidemia was admitted to hospital on 06/05/2024 for community-acquired pneumonia, hypertension, generalized weakness, and need for hemodialysis. #Community-acquired pneumonia #Leukocytosis #Lactic acidosis #Hypotension #Concern for sepsis ? Patient met SIRS criteria 2 out of 4 with tachycardia and leukocytosis. ?Patient was hypotensive, but maintain a MAP above 65 initially ? Lactic acid was 4.8 and down trended to 2.5 ?Procalcitonin 16.23 ?chest x-ray showed bibasilar pneumonia Plan: ? Started vancomycin every other day post hemodialysis [06/06/2024?] ? Start Zosyn 2.25 every 8 hours [06/05/2024?] ?Continue midodrine 10 mg 3 times daily ?Blood and sputum culture ordered ? Will continue to monitor #ESRD (on hemodialysis) #High anion gap metabolic acidosis #Electrolyte imbalance #Hyperkalemia #Hyponatremia #Hypochloremia ? Patient gets hemodialysis as an outpatient and last hemodialysis was on the day prior to admission. ?BUN 59 and creatinine 13.3 ? Patient sodium was 130, potassium 5.6, chloride 89, anion gap 18 ? Elevated anion gap most likely in the setting of uremia and lactic acidosis ? EKG showed sinus tachycardia Plan: ? Gave 5 units of regular insulin and amp of D50 ?Pending nephrology recommendations on hemodialysis schedule ? Nephrology consulted, appreciate recommendations ? Will continue to monitor #NSTEMI likely type II demand ischemia ? Patient's troponin was initially 0.078 and down trended to 0.075 ? Patient has chronically elevated troponins ? EKG did not show any acute ST changes Plan: ? Will continue to monitor #Hyperbilirubinemia ? Patient's initial T bilirubin was 3.8 and then down trended to 3.3 ? Gallbladder ultrasound was unremarkable ? Patient had no right upper quadrant pain Plan: ? Will continue to monitor #DM2 ?A1c 5.7 on 2021 ? Glucose 204 Plan: ? ISS ? Accu-Cheks and hypoglycemia protocol ordered ? A1c ordered for morning labs ? Will continue to monitor #CAD s/p stents #Hyperlipidemia ?Will resume patient's atorvastatin and aspirin once med reconciliation is done #Hypertension ?Patient blood pressure has been low therefore we will hold off any antihypertensive medication for now Disposition: Patient admitted to telemetry. Diet: Carb low GI prophylaxis: not indicated DVT prophylaxis: heparin sc Code:Full Case disclosed with Attending Dr. Morales and My senior Dr. Story PGY3. Chalo العراقي PGY1 Attending Provider Attestation/Addendum I have discussed and was present for the essential components of the history, physical examination, diagnosis, and treatment plan with the resident. I agree with the patient's care as documented by the resident and amended herein by me. Ant Morales DO. Although this document has been carefully reviewed, there may still be some phonetic and other typographical errors. These errors are purely grammatical due to imperfections in the software program and should not be construed in any way to compromise the substance of the patient's medical care during this visit.
[2024-06-05] MEDS: SODIUM CHLORIDE 0.9% 250 ML 250 ML 999 ML IV (15:26)
[2024-06-05] MEDS: MIDODRINE 5 MG TABLET PO (17:34)
[2024-06-05] MEDS: SODIUM CHLORIDE 0.9% 500 ML 500 ML 999 ML IV ×2 (17:35→18:00)
[2024-06-05] MEDS: PIPERACILLIN/TAZO 2.25GM INJ 2.25 GM in SODIUM CHLORIDE 0.9% (P) 50 ML IV ×2 (17:35→22:31)
[2024-06-05] MEDS: MIDODRINE 5 MG TABLET 10 MG PO (20:15)
[2024-06-05] MEDS: INSULIN LISPRO (AdmeLOG) 1 UNIT/0.01 ML UNIT SC (22:31)
[2024-06-06] VITALS (26 sets, daily range): BP systolic 77–109; BP diastolic 44–67; PULSE 72–103; RESP 14–94; TEMP 35.9–36.6; O2SAT 93–98; BMI 34.8; BMI 34.9
--- NOTE | 2024-06-06 04:11 | PC.NURSE ---
Addendum entered by Claire Salomon RN 06/06/24 04:17: DR. ELENA* Original Note: MD AT BEDSIDE. RECYCLED BP AT 77/61 (MAP 66). PT ASYMPTOMATIC. WITH NO ORDERS AT THIS TIME. STATED I CAN GIVE MIDODRINE EARLY SINCE IT'S DUE AT 0600. HE WILL FOLLOW UP WITH ME AND LET ME KNOW IF HE WOULD LIKE ME TO GIVE IT EARLY. ALSO STATES TO CALL HOSPITALIST TEAM IF PT STARTS TO BECOME ASYMPTOMATIC AND/OR BP MAP <60.
[2024-06-06] MEDS: SODIUM CHLORIDE 0.9% 500 ML 500 ML 999 ML IV (04:20)
[2024-06-06] MEDS: MIDODRINE 5 MG TABLET 10 MG PO ×2 (05:13→21:26)
[2024-06-06] MEDS: PIPERACILLIN/TAZO 2.25GM INJ 2.25 GM in SODIUM CHLORIDE 0.9% (P) 50 ML IV ×3 (05:13→21:26)
[2024-06-06] MEDS: HEPARIN SOD INJ 5000 UNIT/ML VIAL SC (05:13)
[2024-06-06 06:13] LABS: Basophils # (Auto) 0.1 Thou/mm3 (0.0-0.2); Basophils % (Auto) 1 % (0-2.5); Eosinophils # (Auto) 0.5 Thou/mm3 (0.0-0.5); Eosinophils % (Auto) 5 % (0-10); Hemoglobin 14.8 g/dL (13.5-16.0); Immature Granulocytes % (Auto) 1 % (0-0); Immature Granulocytes Auto 0.07 Thou/mm3 (0.00-0.00); Lymphocytes # (Auto) 1.8 Thou/mm3 (1.0-4.8); Lymphocytes % (Auto) 17 % (10-50); Mean Corpuscular HGB Conc 30.8 g/dl (31.0-37.0); Mean Corpuscular Hemoglobin 25.8 pg (25.0-35.0); Mean Corpuscular Volume 84 fL (80-100); Monocytes # (Auto) 1.2 Thou/mm3 (0.0-0.8); Monocytes % (Auto) 11 % (0-12); Neutrophils # (Auto) 7.3 Thou/mm3 (1.8-7.7); Neutrophils % (Auto) 66 % (37-80); Nucleated Red Blood Cell % 0 /100 WBC (0); Platelet Count 190 Thou/mm3 (140-440); RDW Standard Deviation 52.5 fL (35.1-43.9); Red Blood Count 5.74 Miln/mm3 (4.50-5.90); White Blood Count 11.1 Thou/mm3 (3.8-10.6)
[2024-06-06 06:34] LABS: Glucose Estimated Average 126 mg/dL (80-131)
[2024-06-06 06:43] LABS: Vancomycin,Random 12.4 mcg/mL
[2024-06-06 06:52] LABS: Alanine Aminotransferase 14 U/L (10-49); Albumin, Serum 3.9 gm/dL (3.5-5.0); Albumin/Globulin Ratio 1.4 (1.2-2.2); Alkaline Phosphatase 216 U/L (46-116); Anion Gap 15 (7-16); Aspartate Amino Transferase < 8 U/L (0-34); BUN/Creatinine Ratio 5 Ratio (12-20); Bilirubin,Total 1.1 mg/dL (0.3-1.2); Blood Urea Nitrogen 76 mg/dL (9-23); Calcium 8.8 mg/dL (8.3-10.6); Calcium (Corrected) 8.9 mg/dL (8.5-10.1); Carbon Dioxide 24.9 mMol/L (20.0-31.0); Chloride 96 mMol/L (98-107); Estimated Creatinine Clearance 7.5 mL/min (>60); Globulin 2.8 gm/dL (2.3-3.5); Glucose 102 mg/dL (74-106); Magnesium 2.3 mg/dL (1.6-2.6); Osmolality,Calculated 294 (275-295); Sodium 136 mMol/L (136-145); Total Protein 6.7 gm/dL (5.7-8.2); eGFR 3 See Note
[2024-06-06 06:53] LABS: Creatinine (Component) 15.7 mg/dL (0.6-1.3)
[2024-06-06] MEDS: ALBUMIN HUMAN 25% IVPB 25 GM/100 ML BTL IV ×2 (08:51→09:20)
--- NOTE | 2024-06-06 11:57 | PC.NURSE ---
Dialysis completed for 3 hrs. Pt A/O x4, no complaint of pain. Respiration even and unlabored sating at 97% RA. Able to removed 1000 ml of fluid net. Pt has episodes of low bp during HD. Albumin 25gms iv x2 was given for low bp support. Post tx BP 96/60, HR 78, Temp 97.8. Pressure dressing on left upper arm AV fistula clean/dry/intact. No bleeding noted. Pressure dressing to be remove at 1400. Pt aware stated he will remove it in 2 hrs. Report given to Brian FREGOSO
--- NOTE | 2024-06-06 13:01 | PC.CC ---
ASW attempted to meet with pt at bedside to complete initial assessment. ASW informed that pt is at dialysis at this time.
[2024-06-06] MEDS: PANTOPRAZOLE INJ 40 MG VIAL IVP (13:24)
--- NOTE | 2024-06-06 13:45 | PD.RESPRO ---
Documentation for date of: 06/06/24 Subjective Subjective Interval history: Patient was seen at bedside during dialysis today. Overnight patient have soft BP and he was given one-time dose of midodrine as well as 500 mL of IV fluids. Today his blood pressure has been stable with a MAP above 65, but is still on the lower end. He got dialysis today and got a total of 2 L taken out. Blood cultures in the first 24 hours were negative. Will continue patient on Vanco and Zosyn as per nephrology. Patient has no other complaints today and states that he feels a lot better and thinks that he may have been dehydrated due to too much fluid taken out during dialysis. He mentioned that he was being taken out around 3.5 L per dialysis section. Exam Vital Signs Temp Pulse Resp BP Pulse Ox O2 Del Method 96.9 F 87 21 H 96/60 95 Room Air 06/06/24 12:00 06/06/24 13:22 06/06/24 12:00 06/06/24 13:22 06/06/24 12:00 06/06/24 12:00 Narrative Exam General: A/O x3, no acute distress, well-nourished, well-developed Eyes: PERRL, EOMI. Anicteric, vision grossly intact. Ears: No ear pain, no ear discharge, Hearing grossly intact. Nose: No nasal discharge. Mouth/Throat: Moist mucous membranes, no redness, no lesions. Neck: Neck supple, non-tender, no cervical lymphadenopathy. Lungs: Clear CHARLA to auscultation and percussion, No accessory muscle use. Cardio: Normal S1/S2, regular rhythm, no murmurs, no JVD Abdomen: Soft, non-tender, no palpable masses, peristalsis present, no guarding or rebound. Extremities: Symmetrical, no peripheral edema , non-tender, peripheral pulses present L LE. 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 Skin: No rashes, no lesions, warm to touch. Neuro: No focal neurological deficits. motor and sensory intact Psych: Cooperative, appropriate mood and effect. Objective Labs 06/06/24 05:33 06/06/24 05:33 Labs: Laboratory Results - last 24 hr 06/06/24 05:33 WBC 11.1 H D RBC 5.74 Hgb 14.8 D Hct 48.0 MCV 84 MCH 25.8 MCHC 30.8 L RDW Std Deviation 52.5 H Plt Count 190 Neut % (Auto) 66 Lymph % (Auto) 17 [place]leigh % (Auto) 11 Eos % (Auto) 5 Baso % (Auto) 1 Neut # (Auto) 7.3 Lymph # (Auto) 1.8 [place] # (Auto) 1.2 H Eos # (Auto) 0.5 Baso # (Auto) 0.1 Immature Gran # (Auto) 0.07 H Absolute Nucleated RBC 0.00 Immature Gran % 1 H Nucleated RBC % 0 Sodium 136 Potassium 5.0 D Chloride 96 L Carbon Dioxide 24.9 Anion Gap 15 BUN 76 H Creatinine 15.7 H* D Estim Creat Clear Calc 7.5 L eGFR 3 L* BUN/Creatinine Ratio 5 L Glucose [address] Glu mg/dL 126 Hemoglobin A1c 6.0 Calculated Osmolality 294 Calcium 8.8 D Corrected Calcium 8.9 D Phosphorus 5.0 Magnesium 2.3 Total Bilirubin 1.1 D AST < 8 ALT 14 Alkaline Phosphatase 216 H D Total Protein 6.7 Albumin 3.9 D Globulin 2.8 Albumin/Globulin Ratio 1.4 Random Vancomycin 12.4 Quality Measures Quality Measures none Assessment & Plan Assessment Current Active Medications: Generic Name Dose Route Start Last Admin Trade Name Freq PRN Reason Stop Dose Admin Acetaminophen 650 mg 06/05/24 12:18 Acetaminophen 325 Mg Tablet PO 07/05/24 12:17 Q6H PRN pain and Fever >100.4 Hydrocodone Bitart/Acetaminophen 1 tab 06/05/24 12:23 Hydrocodone/Apap 5/325 Tablet PO 06/10/24 12:22 Q4HR PRN PAIN SCALE 4-10(Mod-Sev Dextrose 25 ml 06/05/24 12:23 Dextrose 50%-Water Inj 50 Ml Syringe IV 07/05/24 12:22 Q15MIN PRN BG 50-70 responsive npo pt Dextrose 50 ml 06/05/24 12:23 Dextrose 50%-Water Inj 50 Ml Syringe IV 07/05/24 12:22 Q15MIN PRN BG <50 OR BG <70 & pt unresponsive Glucagon 1 mg 06/05/24 12:23 Glucagon Inj 1 Mg Vial IM Q15MIN PRN BG <70, and no IV access Heparin Sodium (Porcine) 5,000 unit 06/05/24 14:00 06/06/24 13:40 Heparin Sod Inj 5000 Unit/Ml Vial SC 06/19/24 13:59 Not Given Q8HR VINCENT Piperacillin Sod/Tazobactam 50 mls @ 100 mls/hr 06/05/24 16:23 06/06/24 13:25 Sod 2.25 gm/ Sodium Chloride IV 06/12/24 16:22 100 mls/hr Q8HR VINCENT Administration Albumin Human 25 gm in 100 mls @ 100 mls/min 06/06/24 07:12 06/06/24 09:20 Albuminar-25 Ivpb IV 100 mls/min PRN PRN Administration DIALYSIS Vancomycin HCl/Dextrose 250 mls @ 120 mls/hr 06/06/24 16:00 Vancomycin/D5w 1,250 Mg Ivpb IV 06/06/24 18:04 X1 ONE Insulin Human Lispro 0 unit 06/05/24 17:00 06/06/24 12:53 Insulin Lispro (Admelog) 1 Unit/0.01 Ml Unit SC 07/05/24 16:59 Not Given ACHS VINCENT Protocol Midodrine 10 mg 06/05/24 15:45 06/06/24 13:22 Midodrine 5 Mg Tablet PO 07/05/24 15:44 Not Given TID VINCENT Ondansetron HCl 4 mg 06/05/24 12:23 Ondansetron Inj 2 Mg/Ml Inj 2 Ml IV 07/05/24 12:22 Q6H PRN NAUSEA OR VOMITING Protocol Pantoprazole Sodium 40 mg 06/05/24 12:30 06/06/24 13:24 Pantoprazole Inj 40 Mg Vial IVP 07/05/24 12:29 40 mg QDAY VINCENT Administration Pharmacy Consult 1 each 06/06/24 16:30 Vancomycin Pharmacy To Dose 1 Each Each IV 07/06/24 16:29 Q48H PRN CONSULT Sennosides 1 tab 06/05/24 12:23 Senna Tablet PO 07/05/24 12:22 QDAY PRN constipation Protocol Plan 48-year-old male with past medical history of DM2, ESRD (on hemodialysis), hypertension, CAD s/p stents, and hyperlipidemia was admitted to hospital on 06/05/2024 for community-acquired pneumonia, hypertension, generalized weakness, and need for hemodialysis. #Sepsis, likely severe #Community-acquired pneumonia #Leukocytosis #Lactic acidosis #Hypotension ? Patient met SIRS criteria 2 out of 4 with tachycardia and leukocytosis. ?Patient was hypotensive, but maintain a MAP above 65 initially ? On Admission Lactic acid was 4.8 and down trended to 2.5 ?On admission Procalcitonin 16.23 ?chest x-ray showed bibasilar pneumonia -Blood cx negative in 24 hrs -WBC 11.1 today Plan: ? Continue vancomycin every other day post hemodialysis [06/06/2024?] ? Continue Zosyn 2.25 every 8 hours [06/05/2024?] ?Continue midodrine 10 mg 3 times daily ?Blood and sputum culture ordered ? Will continue to monitor #ESRD (on hemodialysis) #High anion gap metabolic acidosis #Electrolyte imbalance #Hyperkalemia #Hyponatremia #Hypochloremia ? Patient gets hemodialysis as an outpatient and last hemodialysis was on the day prior to admission. ?BUN 59 and creatinine 13.3 ? Patient sodium was 136, potassium 5, chloride 96, anion gap 15 today ? Initial elevated anion gap most likely in the setting of uremia and lactic acidosis ? EKG showed sinus tachycardia -HD today -Received albumin during dialysis Plan: ?Continue hemodialysis as scheduled ? Nephrology consulted, appreciate recommendations ? Will continue to monitor #NSTEMI likely type II demand ischemia ? Patient's troponin was initially 0.078 and down trended to 0.075 ? Patient has chronically elevated troponins ? EKG did not show any acute ST changes Plan: ? Will continue to monitor #Hyperbilirubinemia ? Patient's initial T bilirubin was 3.8 and then down trended to 3.3 ? Gallbladder ultrasound was unremarkable ? Patient had no right upper quadrant pain Plan: ? Will continue to monitor #DM2 ?A1c 6 on 06/2024 ? Glucose 102 Plan: ? ISS ? Accu-Cheks and hypoglycemia protocol ordered ? A1c ordered for morning labs ? Will continue to monitor #CAD s/p stents #Hyperlipidemia ?restarted patients atorvastatin #Hypertension ?Patient blood pressure has been low therefore we will hold off any antihypertensive medication for now Disposition: Patient admitted to telemetry. Diet: Carb low GI prophylaxis: not indicated DVT prophylaxis: Eliquis Code:Full Case disclosed with Attending Dr. Morales and My senior Dr. Story PGY3. Chalo العراقي PGY1 Attending Provider Attestation/Addendum I have discussed and was present for the essential components of the history, physical examination, diagnosis, and treatment plan with the resident. I agree with the patient's care as documented by the resident and amended herein by me. Ant Morales DO. Although this document has been carefully reviewed, there may still be some phonetic and other typographical errors. These errors are purely grammatical due to imperfections in the software program and should not be construed in any way to compromise the substance of the patient's medical care during this visit.
[2024-06-06] MEDS: VANCOMYCIN/D5W 1,250 MG IVPB 250 ML 120 MG IV (16:12)
[2024-06-06] MEDS: INSULIN LISPRO (AdmeLOG) 1 UNIT/0.01 ML UNIT SC ×2 (17:12→21:16)
[2024-06-06] MEDS: ATORVASTATIN CALCIUM 20 MG TABLET 80 MG PO (21:16)
[2024-06-06] MEDS: APIXABAN 2.5 MG TABLET PO (21:16)
[2024-06-07] VITALS (9 sets, daily range): BP systolic 89–122; BP diastolic 59–85; PULSE 65–89; RESP 14–93; TEMP 35.9–36.1; O2SAT 95–99; BMI 35.4
[2024-06-07] MEDS: PIPERACILLIN/TAZO 2.25GM INJ 2.25 GM in SODIUM CHLORIDE 0.9% (P) 50 ML IV ×2 (05:19→13:49)
[2024-06-07] MEDS: MIDODRINE 5 MG TABLET 10 MG PO ×2 (05:19→13:49)
[2024-06-07 05:55] LABS: Basophils # (Auto) 0.1 Thou/mm3 (0.0-0.2); Basophils % (Auto) 1 % (0-2.5); Eosinophils # (Auto) 0.5 Thou/mm3 (0.0-0.5); Eosinophils % (Auto) 5 % (0-10); Hematocrit 45.2 % (41.0-53.0); Immature Granulocytes % (Auto) 0 % (0-0); Immature Granulocytes Auto 0.04 Thou/mm3 (0.00-0.00); Lymphocytes # (Auto) 1.6 Thou/mm3 (1.0-4.8); Lymphocytes % (Auto) 17 % (10-50); Mean Corpuscular Volume 84 fL (80-100); Monocytes # (Auto) 0.8 Thou/mm3 (0.0-0.8); Monocytes % (Auto) 9 % (0-12); Neutrophils # (Auto) 6.4 Thou/mm3 (1.8-7.7); Neutrophils % (Auto) 68 % (37-80); Nucleated Red Blood Cell % 0 /100 WBC (0); Platelet Count 198 Thou/mm3 (140-440); RDW Standard Deviation 52.5 fL (35.1-43.9); Red Blood Count 5.38 Miln/mm3 (4.50-5.90); White Blood Count 9.4 Thou/mm3 (3.8-10.6)
[2024-06-07 06:24] LABS: Alanine Aminotransferase 10 U/L (10-49); Albumin, Serum 4.2 gm/dL (3.5-5.0); Albumin/Globulin Ratio 1.7 (1.2-2.2); Alkaline Phosphatase 196 U/L (46-116); Anion Gap 13 (7-16); Aspartate Amino Transferase < 8 U/L (0-34); BUN/Creatinine Ratio 4 Ratio (12-20); Blood Urea Nitrogen 55 mg/dL (9-23); Carbon Dioxide 26.7 mMol/L (20.0-31.0); Chloride 98 mMol/L (98-107); Estimated Creatinine Clearance 9.2 mL/min (>60); Globulin 2.5 gm/dL (2.3-3.5); Glucose 160 mg/dL (74-106); Magnesium 2.2 mg/dL (1.6-2.6); Osmolality,Calculated 293 (275-295); Potassium 4.2 mMol/L (3.4-5.1); Sodium 138 mMol/L (136-145); Total Protein 6.7 gm/dL (5.7-8.2); Vancomycin,Random 26.8 mcg/mL; eGFR 4 See Note
[2024-06-07 06:26] LABS: Creatinine (Component) 12.8 mg/dL (0.6-1.3)
--- NOTE | 2024-06-07 07:34 | PC.CC ---
Late Entry 06/06/24 Rounding note: Pt will remain 1-2 more days for further management.
[2024-06-07] MEDS: PANTOPRAZOLE INJ 40 MG VIAL IVP (08:32)
[2024-06-07] MEDS: APIXABAN 2.5 MG TABLET PO (08:32)
--- NOTE | 2024-06-07 11:04 | PC.CC ---
Pt Miguel Rutledge is a 48 yr old male admitted to hospitalist services for PNA, weakness, vomiting. ASW met with pt at bedside to complete initial assessment. At time of encounter pt is noted to be alert and oriented to person, place and situation. Pt able to confirm demographic information. Pt is from home [address] [place] [address] where he lives with his Terese Rutledge [phone] and his parents. Pt identifies his as surrogate DM. 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 At baseline pt reports using a 4-wheel rollator for long distance walking. Pt reports he is independent with his ADLs. Pt is diabetic on oral medication for management. Pt is on dialysis at [facility]. Pt dialysis days are T, TH and Sat @ 0400. Per pt he utilizes medical transport. Pt does not require supplemental O2 in the home. Pt is followed by [facility] on [address] for primary care. Pt is followed by Dr. Russ for nephrology. At time of D/c pt will return home with his parents providing transport. Pt is requesting new walker at D/c. Pt reports his current walker was a gift from his sister 4 years ago.
--- NOTE | 2024-06-07 15:03 | PD.RESDS ---
Planned Discharge Date 06/07/24 DS: Providers Provider Date of admission: 06/05/24 13:45 Primary care physician: Conrad Garduno MD Admitting Provider: Jason Morales DO Attending Provider on Admission: Jason Morales DO Consults: 06/05/24 12:27 Consult to Nephrology Routine Comment: Consulting Provider: Dee Russ 06/05/24 23:54 Referral Registered Dietitian Routine Comment: 06/07/24 08:09 Referral Physical Therapy Stat Comment: Physician Instructions: Attending Provider on DC: Alivia Story MD Discharging Provider: Alivia Story MD DS: Diagnosis Problem List Completed Was Problem List Reviewed/Reconciled?: Yes Hospital Course Hospital Course Hospital course: 48-year-old male with past medical history of DM2, ESRD (on hemodialysis), hypertension, CAD s/p stents, and hyperlipidemia was admitted to hospital on 06/05/2024 for Chief complain of Nausea, vomiting and weakness and admitted for sepsis likely secondary to community-acquired pneumonia, hypertension, generalized weakness, and need for hemodialysis. ED course: Patient came in afebrile, tachycardic and hypotensive. Initial labs were relevant for leukocytosis (19), Hgb (18.9), hyponatremia (132), hyperkalemia (5.6), elevated anion gap (18), BUN 59, creatinine 13.3, lactic acidosis (4.8 and down trended to 2.5), hyperbilirubinemia (3.8 and down trended to 3.3), elevated troponins 0.078 and down trended to 0.075, and procalcitonin elevated at 16.23. Initial imaging included chest x-ray which showed bibasilar pneumonia, abdomen/pelvis CT which did not show any acute process in the abdomen or pelvis, and gallbladder ultrasound which did not show any cholelithiasis or cholecystitis. Hospital course . Patient was started on Zosyn and vancomycin as per Dr Russ's recommendation who is the patient's vehicle sales professional outpatient. Throughout the hospital stay patient was hypotensive and was given bolus of fluid with midodrine. Ekg showed sinus tachycardia ,Lactic acid down trended, hyperkalemia resolved. He received dialysis in the hospital. 24 blood culture negative. MRSA nares came back negative. Will continue amoxicillin and Doxy for additional 5 days to cover for pneumonia. And will send him with midodrine with instructions to hold if systolic blood pressure is more than 120. He is being evaluated outpatient for kidney transplantation. Today the patient is stable on vitals labs unremarkable, physical examination unremarkable he is stable to discharge back home continue to follow-up for dialysis with Discharge instruction: Take midodrine for low blood pressure Hold if systolic blood pressure is more than 120 Continue Augmentin for 5 days continue Doxycycline for 5 days Follow-up with Dr. Russ for your regular scheduled dialysis Saturday and Saturdays. Follow-up with PCP 1 to 2 weeks after discharge #Sepsis, likely severe #Community-acquired pneumonia #Leukocytosis- resolved #Lactic acidosis #Hypotension #ESRD (on hemodialysis) #High anion gap metabolic acidosis-resolved #Electrolyte imbalance #Hyperkalemia-resolved #Hyponatremia-resolved #Hypochloremia-resplved #NSTEMI likely type II demand ischemia ? Patient's troponin was initially 0.078 and down trended to 0.075 ? Patient has chronically elevated troponins #Hyperbilirubinemia ? Patient's initial T bilirubin was 3.8 and then down trended to 3.3 ? Gallbladder ultrasound was unremarkable #DM2 #CAD s/p stents #Hyperlipidemia ?restarted patients atorvastatin #Hypertension ?Patient blood pressure has been low therefore we will hold off any antihypertensive medication for now Discussed the patient with my attending Dr George , Alivia Story MD,PGY-3 Time Spent with Patient Time attestation: Total time spent providing and/or coordinating discharge services:>30 min Exam Vital Signs Temp Pulse Resp BP Pulse Ox O2 Del Method 96.7 F L 80 15 89/64 L 99 Room Air 06/07/24 12:00 06/07/24 13:49 06/07/24 12:00 06/07/24 13:49 06/07/24 12:00 06/07/24 12:00 Narrative Exam General: A/O x3, no acute distress, well-nourished, well-developed Eyes: PERRL, EOMI. Anicteric, vision grossly intact. Ears: No ear pain, no ear discharge, Hearing grossly intact. Nose: No nasal discharge. Mouth/Throat: Moist mucous membranes, no redness, no lesions. Neck: Neck supple, non-tender, no cervical lymphadenopathy. Lungs: Clear CHARLA to auscultation and percussion, No accessory muscle use. Cardio: Normal S1/S2, regular rhythm, no murmurs, no JVD Abdomen: Soft, non-tender, no palpable masses, peristalsis present, no guarding or rebound. Extremities: Symmetrical, no peripheral edema , non-tender, peripheral pulses present L LE. 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 Skin: No rashes, no lesions, warm to touch. Neuro: No focal neurological deficits. motor and sensory intact Psych: Cooperative, appropriate mood and effect. Discharge Plan Plan Patient Disposition: HOME (Self Care) Disposition Comment: Stable at signout Prescriptions/Referrals Prescriptions/Med Rec: New midodrine 5 mg Tablet 10 mg PO TID PRN (Reason: hypotension) Qty: 30 0RF amoxicillin-pot clavulanate [Augmentin] 500-125 mg tablet 1 tab PO BID 5 Days Qty: 10 0RF doxycycline hyclate 100 mg capsule 100 mg PO BID 5 Days Qty: 10 0RF Continued omeprazole 40 mg capsule,delayed release(DR/EC) 40 mg PO QDAY Tradjenta 5 mg tablet 5 mg PO QDAY Patient Comments: TAKE 1 TABLET BY MOUTH EVERY DAY Velphoro 500 mg tablet,chewable 500 mg PO TID Patient Comments: TAKE 2 TABLETS BY MOUTH WITH MEALS THREE TIMES DAILY Rx Instructions: WITH MEALS atorvastatin 80 mg tablet 80 mg PO HS 30 Days Qty: 30 2RF Eliquis 2.5 mg tablet 2.5 mg PO BID Patient Comments: TAKE 1 TABLET BY MOUTH TWICE DAILY Discontinued midodrine 5 mg tablet 5 mg PO TID Patient Comments: TAKE 1 TABLET BY MOUTH 3 TIMES A DAY Referrals: Conrad Garduno MD [Primary Care Provider] - Patient/Caregiver Discharge Instructions Discharge Activity: activity as tolerated Other Discharge Activity Instructions:: Take midodrine for low blood pressure Hold if systolic blood pressure is more than 120 Continue Augmentin for 5 days continue Doxycycline for 5 days Follow-up with Dr. Russ for your regular scheduled dialysis Saturday and Saturdays. Follow-up with PCP 1 to 2 weeks after discharge Education Materials: Sepsis Print Language: [place] Citizen Stand Alone Forms: Orin Award Info., Patient Portal Info Letter Discharge Order Discharge Orders: Discharge (Routine); Ordered 06/07/24 Ordered By: Alivia Story Quality Discharge Quality Measures VTE prophylaxis MD Attestestation MD Attestation I have examined the patient, reviewed labs and imaging findings, discussed the case with the resident(s), and reviewed entered orders. I agree with the plan of care as outlined in this note. Dr. George
--- NOTE | 2024-06-07 15:18 | PC.CC ---
Rounding note: D/c today.
[2024-06-08 03:33] LABS: Hepatitis A Antibody IgM Non Reactive (Non React); Hepatitis B Core Antibody IgM Non Reactive (Non React); Hepatitis B Surface Ab Reactive (Immune) (Immune); Hepatitis B Surface Antigen Non Reactive (Non React); Hepatitis C Antibody Non Reactive (Non React)
--- NOTE | 2024-06-08 08:20 | ESCONSULT_ITS ---
RE: [employer] : 1975 DATE OF CONSULTATION: 06/05/2024 REASON FOR REFERRAL: ESRD management REFERRING PHYSICIAN: Hospitalist HISTORY OF PRESENT ILLNESS: This patient is a 48-year-old [place]ron[place] gentleman with past medical history significant for type 2 diabetes for more than 20 years with diabetic neuropathy and nephropathy, hypertension, ESRD on dialysis since 2019, on dialysis every Saturday, , Saturday, whose last dialysis was yesterday, who presented to the emergency room early this morning for weakness. The patient's blood pressures have been on the lower side since yesterday. At one point, while here in the emergency room, the patient was noted to have a blood pressure of 60s/40s. He took his own midodrine 5 mg p.o. and blood pressure is now a little bit better which are in the 80s/50s. The patient has no specific complaint except for weakness. His chest x-ray showed early bibasilar pneumonia. The patient also has an increased white count of 16,800. The patient also has a history of polycythemia and we have been dumping his blood after each dialysis treatment sometimes on a monthly basis. PAST MEDICAL HISTORY: ESRD, diabetes, hypertension, NSTEMI, CAD, CHF with EF of 35% to 40% in the past. PAST SURGICAL HISTORY: Left AV fistula placement and right BKA. ALLERGIES: NO KNOWN DRUG ALLERGIES. CURRENT MEDICATIONS: 1. Acetaminophen. 2. Azithromycin p.o. daily 3. Rocephin 1 g IV daily 4. Heparin 5000 units subcutaneously q.8. 6. Hydrocodone/APAP 1 tablet p.o. q.4 7. Lispro sliding scale. 8. Ondansetron 4 mg IV q.6 p.r.n. 9. Pantoprazole 40 mg IV daily. 10. Senokot 1 tablet p.o. daily p.r.n. 11. Vancomycin 1 g IV x1 12. Zosyn 3.37 mcg IV x1 PHYSICAL EXAMINATION: General: He is awake, alert, and oriented. Vital Signs: Blood pressure 88/60, heart rate of 103, O2 saturation 91%. HEENT: Anicteric sclerae. Normocephalic. Neck: Supple. No JVD. Chest and Lungs: Symmetrical expansion. Clear breath sounds. Cardiac: No rub, murmur. Abdomen: Soft, nontender. Extremities: Right BKA, no edema. LABORATORY DATA: Hemoglobin 17.8, WBC 16,800, plate count 212,000. Sodium 130, potassium 5.6, chloride 89, CO2 of 23.1, BUN 59, creatinine 13.3, lactic acid 2.5, calcium 10.9, albumin 5.2, procalcitonin 16.23. ASSESSMENT: 1. End stage renal disease. 2. Hypotensive episodes with lactic acidosis and elevated procalcitonin level, most likely septic. 3. Bibasilar pneumonia. 4. Polycythemia vera. 5. History of coronary artery disease. 6. Status post right [id number]. 7. Mild hyperkalemia. 8. Chronic volume overload. PLAN: I agree with starting him on anti-hyperkalemic agents to decrease his potassium level. Dialysis will be provided once he is more hemodynamically stable. I will start him also on midodrine 10 mg p.o. t.i.d. for blood pressure support and I agree with starting him on Zosyn and vancomycin to address his septicemia. We will wait for the result of his blood cultures done in emergency room. Continue supportive treatment. DT: 15:47:21 TT: 16:52:00 Ref: [id number] - TID: [id number] MTDD
== END 2024-06-07 14:40 | disposition home or self-care (01) | DRG 871 ==
LOC: SERX 06-05 02:05 → SERHOLD 06-05 13:48 → S2NX 06-05 23:18
PROVIDERS: Emergency Medicine; Internal Medicine Nephrology; Physician Assistant; Admitting Provider Student in an Organized Health Care Education/Training Program; Emergency Provider Emergency Medicine; PCP Family Medicine; Visit Provider Student in an Organized Health Care Education/Training Program
DX: A41.9 Sepsis, unspecified organism (principal); I21.A1 Myocardial infarction type 2; N18.6 End stage renal disease; J18.9 Pneumonia, unspecified organism; E87.1 Hypo-osmolality and hyponatremia; E87.20 Acidosis, unspecified; R17 Unspecified jaundice; E11.22 Type 2 diabetes mellitus with diabetic chronic kidney disease; E03.9 Hypothyroidism, unspecified; D45 Polycythemia vera; E11.40 Type 2 diabetes mellitus with diabetic neuropathy, unspecified; R65.20 Severe sepsis without septic shock; E11.21 Type 2 diabetes mellitus with diabetic nephropathy; E78.5 Hyperlipidemia, unspecified; E87.5 Hyperkalemia; E87.70 Fluid overload, unspecified; I95.9 Hypotension, unspecified; E87.8 Other disorders of electrolyte and fluid balance, not elsewhere classified; I10 Essential (primary) hypertension; E78.00 Pure hypercholesterolemia, unspecified; I25.10 Atherosclerotic heart disease of native coronary artery without angina pectoris; Z99.2 Dependence on renal dialysis; Z95.5 Presence of coronary angioplasty implant and graft; Z89.422 Acquired absence of other left toe(s); Z79.899 Other long term (current) drug therapy; Z89.511 Acquired absence of right leg below knee; Z79.84 Long term (current) use of oral hypoglycemic drugs; Z79.01 Long term (current) use of anticoagulants
CPT/HCPCS: 36415; 71045; 74176; 76705; 80053; 80069; 80074; 80202; 83036; 83605; 83735; 84100; 84145; 84484; 85025; 85610; 85730; 86706; 87040; 87081; 87400; 87811; 93005; 96365; 96366; 96367; 96368; 96372; 96375; 99291; J0696; J1643; J1815; J2405; J2470; J2543; J3370; J3371; J7040; J7050; P9047; A9270

== ENCOUNTER → 2024-06-19 | Outpatient (CLI) | payer MEDICARE, MEDICAID, SELFPAY ==
[2024-06-19 10:53] LABS: Alanine Aminotransferase 51 U/L (10-49); Albumin, Serum 4.7 gm/dL (3.5-5.0); Albumin/Globulin Ratio 1.6 (1.2-2.2); Alkaline Phosphatase 325 U/L (46-116); Anion Gap 14 (7-16); Aspartate Amino Transferase 33 U/L (0-34); Bilirubin,Total 0.7 mg/dL (0.3-1.2); Blood Urea Nitrogen 53 mg/dL (9-23); Calcium 9.4 mg/dL (8.3-10.6); Calcium (Corrected) 9.4 mg/dL (8.5-10.1); Cardiac Risk Estimate 4.9 RATIO (4.0-6.7); Chloride 96 mMol/L (98-107); Cholesterol 142 mg/dL (132-200); Glucose 99 mg/dL (74-106); HDL Cholesterol 29 mg/dL (40-60); LDL Cholesterol,Calculated 53 mg/dL (0-130); Osmolality,Calculated 288 (275-295); Potassium 4.7 mMol/L (3.4-5.1); Sodium 137 mMol/L (136-145); Total Protein 7.7 gm/dL (5.7-8.2); Triglycerides 299 mg/dL (30-150)
[2024-06-19 11:05] LABS: BUN/Creatinine Ratio 5 Ratio (12-20); eGFR 5 See Note
[2024-06-19 11:18] LABS: Creatinine (Component) 10.7 mg/dL (0.6-1.3)
== END | disposition home or self-care (01) ==
LOC: COPL 08:39
PROVIDERS: PCP Family Medicine; Referring Provider Specialist; Visit Provider Specialist
DX: I10 Essential (primary) hypertension (principal); E78.00 Pure hypercholesterolemia, unspecified
CPT/HCPCS: 36415; 80053; 80061

== ENCOUNTER 2024-09-21 18:07 | Emergency (ER) | payer MEDICARE, MEDICAID, SELFPAY ==
[2024-09-21 18:08] VITALS: BMI 34.8
[2024-09-21 19:40] VITALS: BP 160/97; PULSE 87; RESP 20; TEMP 37.2; O2SAT 95
--- NOTE | 2024-09-21 19:47 | XR_ITS ---
Examination: CT brain head without contrast. 2-D sagittal coronal reconstructions Date and time of exam:September 21, 20242030 hrs. Indications: Patient fell today with injury to the head, head pain CTDI: vol (mGy):59.6 DLP: (mGycm):1179 Technique: Multiple CT axial sections of the brain have been obtained, 5 mm slice thickness. Contrast has not been administered. 2-D sagittal, coronal reconstructions have been obtained Low dose protocols were performed. One or more of the following dose reduction techniques were used; automated exposure control, adjustment of the mA and/or KV according to patient size, use of iterative reconstruction technique. Findings: No significant ventricular enlargement. Intra-axial or extra-axial hemorrhage density is not seen. No mass effect or midline shift Basal cisterns are not remarkable. Fourth ventricle is midline. Cranial vault intact. Old infarct left cerebellar hemisphere Impression: Negative for acute hemorrhage, mass effect or midline shift
--- NOTE | 2024-09-21 19:47 | XR_ITS ---
Examination: Ribs, left, with PA chest, 5 views Technique: Chest PA, RIBS AP, RPO, LPO, AP coned lower ribs 5 views Exam date and time: September 21, 2024, 2106 hrs. Indications: Patient fell 2 days ago with injury to the chest, left rib pain Findings: No significant cardiac enlargement Minor atelectasis left lower lobe No pneumothorax Suspicious for minimally displaced acute fracture anterior left eighth rib Impression: No pneumothorax Suspicious for minimally displaced acute fracture anterior left eighth rib
--- NOTE | 2024-09-21 19:47 | XR_ITS ---
Examination: Lumbar spine 3 views Technique: AP lateral coned lateral lower lumbar spine 3 views Exam date and time: September 21, 2024, 2106 hrs. Indications: Patient fell 2 days ago with injury to lower back, lower back pain. Findings: No acute lumbar fracture Moderate disc narrowing L3-L4, L4-L5 Moderate lumbar spondylosis Impression: No lumbar fracture
--- NOTE | 2024-09-21 19:48 | PD.EDRME ---
Rapid Medical Screening Exam RME Arrival date/time: 09/21/24 18:07 48 yo m present to ED for c/o of GLF today. + blood thinner uses I have greeted and performed a focused initial assessment of this patient. A comprehensive ED assessment and evaluation of the patient, analysis of all test results, and completion of the medical decision making process will be conducted by additional ED providers. Chief Complaint: Fall Time Seen by Provider: 09/21/24 19:19 Vital signs: Vital Signs Temperature 98.9 F 09/21/24 19:40 Pulse Rate 87 09/21/24 19:40 Respiratory Rate 20 09/21/24 19:40 Blood Pressure 160/97 H 09/21/24 19:40 Pulse Oximetry (%) 95 09/21/24 19:40 Oxygen Delivery Method Room Air 09/21/24 19:40
[2024-09-21 20:57] LABS: Basophils # (Auto) 0.1 Thou/mm3 (0.0-0.2); Basophils % (Auto) 1 % (0-2.5); Eosinophils # (Auto) 0.5 Thou/mm3 (0.0-0.5); Eosinophils % (Auto) 5 % (0-10); Hemoglobin 14.8 g/dL (13.5-16.0); Immature Granulocytes % (Auto) 0 % (0-0); Immature Granulocytes Auto 0.03 Thou/mm3 (0.00-0.00); Lymphocytes # (Auto) 1.7 Thou/mm3 (1.0-4.8); Lymphocytes % (Auto) 16 % (10-50); Mean Corpuscular HGB Conc 32.9 g/dl (31.0-37.0); Mean Corpuscular Hemoglobin 26.1 pg (25.0-35.0); Mean Corpuscular Volume 79 fL (80-100); Monocytes # (Auto) 0.7 Thou/mm3 (0.0-0.8); Monocytes % (Auto) 7 % (0-12); Neutrophils # (Auto) 7.5 Thou/mm3 (1.8-7.7); Neutrophils % (Auto) 72 % (37-80); Nucleated Red Blood Cell % 0 /100 WBC (0); Platelet Count 203 Thou/mm3 (140-440); RDW Standard Deviation 52.7 fL (35.1-43.9); Red Blood Count 5.68 Miln/mm3 (4.50-5.90); White Blood Count 10.5 Thou/mm3 (3.8-10.6)
[2024-09-21 21:35] LABS: Alanine Aminotransferase 11 U/L (10-49); Anion Gap 15 (7-16); Aspartate Amino Transferase 11 U/L (0-34); BUN/Creatinine Ratio 5 Ratio (12-20); Bilirubin,Total 0.5 mg/dL (0.3-1.2); Blood Urea Nitrogen 96 mg/dL (9-23); Calcium 8.2 mg/dL (8.3-10.6); Carbon Dioxide 24.4 mMol/L (20.0-31.0); Chloride 100 mMol/L (98-107); Estimated Creatinine Clearance 6.6 mL/min (>60); Glucose 138 mg/dL (74-106); Osmolality,Calculated 309 (275-295); Potassium 4.7 mMol/L (3.4-5.1); Sodium 139 mMol/L (136-145); Total Protein 6.8 gm/dL (5.7-8.2); eGFR 3 See Note
[2024-09-21 21:36] LABS: Albumin/Globulin Ratio 1.4 (1.2-2.2); Alkaline Phosphatase 363 U/L (46-116); Calcium (Corrected) 8.2 mg/dL (8.5-10.1); Globulin 2.8 gm/dL (2.3-3.5)
[2024-09-21 21:37] LABS: Creatinine (Component) 17.8 mg/dL (0.6-1.3)
--- NOTE | 2024-09-21 22:02 | PD.EDBACK ---
ED Back Injury Pain RME/HPI General Chief Complaint: Fall Stated Complaint: FALL YESTERDAY, SWOLLEN L) BACK, HURTS TO WALK Time Seen by Provider: 09/21/24 19:19 Arrival date/time: 09/21/24 18:07 48 year old male present to emergency room with c/o of GLF yesterday injury lower back. patient takes blood thinner and report gets dialysis tomorrow. No fevers No unexplained weight loss of night sweats No recent surgeries or recurrent bacterial infections No IVDU Patient is not immunocompromised Denies any new focal neurological deficits or new motor weakness Denies bowel or bladder incontinence or saddle anesthesia LOCATION: back SEVERITY: Symptoms are described as being severe with limitations on activities of daily living QUALITY: Symptoms are described as being dull or achy CONTEXT: GLF injury lower back DURATION/TIMING: The symptoms started approximately one day ago and have been constant this then. ASSOCIATED SYMPTOMS: The patient is unable to identify any other associated symptoms. MODIFYING FACTORS: The patient is unable to identify any alleviating or aggravating symptoms. PERTINENT ROS: no fevers, no IVDU, denies any ripping or tearing sensations, no associated abdominal pain, no focal neurological deficits and denies any saddle anesthesia, and no bowel or bladder incontinence no chest pain, syncope/loc, or neck pain REVIEW OF SYSTEMS: See History of Present Illness - with the exception of those mentioned in the history of present illness, all other systems reviewed and reported as negative GENERAL: In general the patient is awake, interactive, in an emergency department gurney. HEAD/EYES/EARS/NOSE/THROAT: normo-cephalic, atraumatic, mucus membranes are moist, anicteric, palpebral conjunctiva is pink, trachea is midline. CARDIOVASCULAR: regular rate and regular rhythm, no murmurs, heart sounds are not distant, strong pulses in all four extremities that are equal and symmetric bilateral upper and lower extremities, normal capillary refill. CHEST/PULMONARY: normal chest rise and fall, good air movement, clear to auscultation bilaterally, normal inspiratory to expiratory ratios without evidence of respiratory distress. NECK: No midline/Paraspinal tenderness, no step off ROM/Strenght intact No Kernig and bruzinski sign. No trauma ABDOMEN: soft, not tender, no masses appreciated BACK: + left lower tenderness no bruising normal range of motion without pain. NEUROLOGICAL: cranio-facial features are symmetric, moves all four extremities equally without obvious limitations or weakness. EXTREMITY: no tenderness to palpation over the long bones or large joints of the bilateral upper and lower extremities, no joint swelling, no joint erythema, no signs of trauma, no unilateral leg swelling and no peripheral edema. SKIN: warm, dry, well-perfused, no jaundice, no rash, no telangiectasias or petechia. PSYCH: calm, cooperative, no evidence of psychosis or agitation RME / HPI RME / HPI Narrative: 09/21/24 18:07 48 yo m present to ED for c/o of GLF today. + blood thinner uses I have greeted and performed a focused initial assessment of this patient. A comprehensive ED assessment and evaluation of the patient, analysis of all test results, and completion of the medical decision making process will be conducted by additional ED providers. Related Data Home Medications ?Medication ?Instructions ?Recorded ?Confirmed linagliptin 5 mg tablet (Tradjenta) 5 mg PO QDAY 08/21/23 06/05/24 omeprazole 40 mg capsule,delayed 40 mg PO QDAY 08/21/23 06/05/24 release sucroferric oxyhydroxide 500 mg 500 mg PO TID 08/21/23 06/05/24 chewable tablet (Velphoro) apixaban 2.5 mg tablet (Eliquis) 2.5 mg PO BID 06/05/24 06/05/24 Previous Rx's ?Medication ?Instructions ?Recorded atorvastatin 80 mg tablet 80 mg PO HS 30 days #30 tabs 04/25/22 midodrine 5 mg tablet 10 mg (2 x 5 mg) PO TID PRN 06/07/24 hypotension #30 tabs hydrocodone 5 mg-acetaminophen 325 1 tab PO Q8H PRN pain #14 tabs 09/21/24 mg tablet Allergies Allergy/AdvReac Type Severity Reaction Status Date / Time pollen extracts Allergy Severe Sneezing Verified 09/21/24 18:11 sulfamethoxazole (From Allergy Severe Hives Verified 09/21/24 18:11 Bactrim) trimethoprim (From Bactrim) Allergy Hives Verified 09/21/24 18:11 Course Quality Measures none Orders Category Date Time Status CT head/brain wo con Stat Exams 09/21/24 19:47 Completed XR lumbar spine 2-3V Stat Exams 09/21/24 19:47 Completed XR ribs LT min 3V w CXR1V Stat Exams 09/21/24 19:47 Completed CBC Stat Lab 09/21/24 20:39 Completed CMP [Comprehensive Metabolic Panel] Stat Lab 09/21/24 20:39 Completed HYDROcodone*/APAP 5/325 [Cotopaxi 5/325] Med 09/21/24 22:02 Discontinued 1 tab PO X1 ONE Reevaluation(s) Reevaluation #1: pain is improved comfortable to go home, will return if pain worsen to get CT scan. Vital Signs Vital signs: Vital Signs Temperature 98.9 F 09/21/24 19:40 Pulse Rate 87 09/21/24 19:40 Respiratory Rate 20 09/21/24 19:40 Blood Pressure 160/97 H 09/21/24 19:40 Pulse Oximetry (%) 95 09/21/24 19:40 Oxygen Delivery Method Room Air 09/21/24 19:40 Back Pain / Injury Patient data External records reviewed:: [facility] previous records Clinical information provided by:: none Social determinants that could affect healthcare access:: none Patient has the following chronic illnesses:: as stated in chart How is presenting disease/condition affected by chronic disease/condition?: uneffected by Evaluation data The following diagnostics were reviewed and interpreted by me:: lab results and radiology exam(s) Lab and/or radiology exams considered but not ordered:: n/a Interpretation Summary: CT: nad lumbar xray: wnl cbc: wnl CMP:normal ranges for patient, gets diaylsis tmr No significant cardiac enlargement Minor atelectasis left lower lobe No pneumothorax Suspicious for minimally displaced acute fracture anterior left eighth rib Impression: No pneumothorax Suspicious for minimally displaced acute fracture anterior left eighth rib Medications / Prescriptions Medications or Prescriptions considered but not ordered:: n/a Medication administrations:: Medication Administration History Discontinued Medications Hydrocodone Bitart/Acetaminophen (Hydrocodone/Apap 5/325 Tablet) 1 tab PO X1 ONE Stop: 09/21/24 22:03 as stated above Consultations Consultation(s) initiated? (list below): No Diagnosis Differential diagnosis back pain/injury: lumbar radiculopathy, strain of lumbar region, renal colic, pyelonephritis and other (contusion, head injury, head bleed ) Most likely diagnosis given after review of the tests above:: rib fx Admission Indicated Admission indicated?: not indicated Admission Request Was there a request for admission?: No Disposition Plan Disposition Plan: Discharge Discharge Attestation Discharge Attestation: The patient and all family members were given an opportunity to ask questions and understood the discharge instructions. Discharge instructions specifically effects, indications for sooner follow up or return to the emergency department, and the expected course of current diagnosis. Patient condition: Stable Discharge Plan Plan Patient Disposition: HOME (Self Care) Health Concerns: Follow with PMD as directed Return to ED if sx worsen Prescriptions/Referrals Prescriptions/Med Rec: New hydrocodone-acetaminophen 5-325 mg tablet 1 tab PO Q8H MDD 3 PRN (Reason: pain) Qty: 14 0RF No Action omeprazole 40 mg capsule,delayed release(DR/EC) 40 mg PO QDAY Tradjenta 5 mg tablet 5 mg PO QDAY Patient Comments: TAKE 1 TABLET BY MOUTH EVERY DAY Velphoro 500 mg tablet,chewable 500 mg PO TID Patient Comments: TAKE 2 TABLETS BY MOUTH WITH MEALS THREE TIMES DAILY Rx Instructions: WITH MEALS atorvastatin 80 mg tablet 80 mg PO HS 30 Days Qty: 30 2RF Eliquis 2.5 mg tablet 2.5 mg PO BID Patient Comments: TAKE 1 TABLET BY MOUTH TWICE DAILY midodrine 5 mg Tablet 10 mg PO TID PRN (Reason: hypotension) Qty: 30 0RF Referrals: Rut Garduno MD [Primary Care Provider] - In 1 week Problem List Clinical Impression: Closed rib fracture Patient/Caregiver Discharge Instructions Education Materials: ED Rib Fracture Print Language: Greek Stand Alone Forms: Orin Award Info., Patient Portal Info Letter
[2024-09-21] MEDS: HYDROcodone/APAP 5/325 TABLET 1 TAB PO (22:10)
== END 2024-09-21 22:12 | disposition home or self-care (01) ==
PROVIDERS: Physician Assistant; Emergency Provider Family Medicine; PCP Family Medicine
DX: S22.32XA Fracture of one rib, left side, initial encounter for closed fracture (principal); W18.30XA Fall on same level, unspecified, initial encounter
CPT/HCPCS: 36415; 70450; 71101; 72100; 80053; 85025; 99284; A9270

== ENCOUNTER 2024-09-30 13:36 | Emergency (ER) | payer MEDICARE, MEDICAID, SELFPAY ==
[2024-09-30 13:50] VITALS: BP 112/72; PULSE 100; RESP 20; TEMP 37.1; O2SAT 95; BMI 36.9
--- NOTE | 2024-09-30 14:06 | EDNOTE_ITS ---
ED Skin Abcess FB-RME/HPI General Chief complaint: Skin/Abscess/Foreign Body Stated complaint: BOIL TO RIGHT BUTTOCK Time Seen by Provider: 09/30/24 13:42 Arrival date/time: 09/30/24 13:36 49-year-old male ESRD on dialysis presents to the emergency department today for complaints of abscess right buttock patient reports while at dialysis yesterday he received IV antibiotics which did improve his symptoms in fact the abscess ruptured patient came in for further evaluation of the abscess which has ruptured today Limitations: no limitations Related Data Home Medications ?Medication ?Instructions ?Recorded ?Confirmed linagliptin 5 mg tablet (Tradjenta) 5 mg PO QDAY 08/2006/05/24 omeprazole 40 mg capsule,delayed 40 mg PO QDAY 4 06/05/24 release sucroferric oxyhydroxide 500 mg 500 mg PO TID 08/21/23 06/05/24 chewable tablet (Velphoro) apixaban 2.5 mg tablet (Eliquis) 2.5 mg PO BID 5 06/05/24 Previous Rx's ?Medication ?Instructions ?Recorded atorvastatin 80 mg tablet 80 mg PO HS 30 days #30 tabs 04/25/22 midodrine 5 mg tablet 10 mg (2 x 5 mg) PO TID PRN 06/07/24 hypotension #30 tabs hydrocodone 5 mg-acetaminophen 325 1 tab PO Q8H PRN pa in #14 tabs 09/21/24 mg tablet Allergies Allergy/AdvReac Type Severity Reaction Status Date / Time pollen extracts Allergy Severe Sneezing Verified 09/21/24 18:11 sulfamethoxazole (From Allergy Severe Hives Verified 09/21/24 18:11 Bactrim) trimethoprim (From Bactrim) Allergy Hives Verified 09/21/24 18:11 Review of Systems Review of Systems Systems Reviewed: All systems reviewed, normal except as documented Constitutional Constitutional: Reports system reviewed and no additional complaints, except as documented, Denies fever(s) and Denies headache(s) Eyes Eyes: Reports system reviewed and no additional complaints, except as documented and Denies blurry vision ENT Ears, Nose, Mouth, and Throat: Reports system reviewed and no additional complaints, except as documented, Denies headache(s), Denies nasal congestion and Denies nasal discharge Cardiovascular Cardiovascular: Reports system reviewed and no additional complaints, except as documented, Denies chest pain and Denies dyspnea Respiratory Respiratory: Reports system reviewed and no additional complaints, except as documented, Denies chest congestion, Denies cough and Denies dyspnea Gastrointestinal Gastrointestinal: Reports system reviewed and no additional complaints, except as documented and Denies abdominal pain Integumentary/Breasts Skin/Breast: Reports system reviewed and no additional complaints, except as documented, Reports erythema (Abscess right buttock), Denies rash and Reports other (Abscess draining right buttock) Neurologic Neurologic: Reports system reviewed and no additional complaints, except as documented, Reports as per HPI and Denies headache(s) Past Medical History Past Medical History NEUROLOGIC: Negative Neurological Disorders or Seizures CARDIAC: Positive Cardiac Disorders, Hypercholesterolemia, Hypertension and Hypotension; Negative Congestive Heart Failure RESPIRATORY: Positive Sleep Apnea; Negative Chronic Obstructive Pulmonary Disease (COPD) GASTROINTESTINAL: Positive Obesity; Negative Gastrointestinal Disorders GENITOURINARY: Positive Genitourinary Disorders, Renal Disease and Dialysis MUSCULOSKELETAL: Negative Musculoskeletal Disorders ENT: Positive Cataracts (BILATERAL EYES) ENDOCRINE: Positive Endocrine Disorders, Diabetes Mellitus Type 2 and Hypothyroidism; Negative Diabetes Mellitus Type 1 HEMATOLOGIC: Negative Blood Disorders OTHER HISTORY: Positive Chicken Pox; Negative Hospitalization, Autoimmune Disease, Falls, Blood Transfusions, Anesthesia Reactions, MRSA, Measles, Mumps or Cancer Family History FAMILY HISTORY: Positive Family Cardiac Disorders; Negative Family Psychiatric Problems, Family Respiratory Disorders, Family Gastrointestinal Problems, Family Cancer, Family Surgery or Family Anesthesia Reaction Surgical History SURGICAL: Positive Coronary Stent and Amputation Social History SMOKING STATUS: Never smoker SUBSTANCE USE: does not use ED Exam General Limitations: Present no limitations General appearance: Present alert and in no apparent distress Head Head exam: Present atraumatic Eye Eye exam: Present normal appearance, PERRL and EOMI ENT ENT exam: Present normal exam, normal oropharynx and mucous membranes moist Neck Neck exam: Present normal inspection, full ROM and trachea midline Chest Chest inspection: Present normal inspection and symmetric chest wall rise Respiratory Respiratory exam: Present normal lung sounds bilaterally Cardiovascular Cardiovascular exam: Present regular rate, normal rhythm and normal heart sounds Abdominal Exam Abdominal exam: Present soft and normal bowel sounds Extremities Exam Extremities exam: Present normal inspection and full ROM Back Exam Back exam: Present normal inspection and full ROM Neurological Exam Neurological exam: Present alert, oriented X3 and CN II-XII intact Psychiatric Psychiatric exam: Present normal affect and normal mood Skin Skin exam: Present warm, dry and other (Superficial abscess right buttock) Course Quality Measures none Orders Category Date Time Status Lidocaine 1% 20 ml [Xylocaine 1% 20 ML] Med 09/30/24 14:05 Discontinued 2.1 ml INFL X1 ONE cefTRIAXone [Rocephin] Med 09/30/24 14:05 Discontinued 1,000 mg IM X1 ONE Vital Signs Vital signs: Vital Signs Temperature 98.8 F 09/30/24 13:50 Pulse Rate 100 09/30/24 13:50 Respiratory Rate 20 09/30/24 13:50 Blood Pressure 112/72 09/30/24 13:50 Pulse Oximetry (%) 95 09/30/24 13:50 Oxygen Delivery Method Room Air 09/30/24 13:50 O2 saturation 95% on room air within normal limits Skin / Abscess / Foreign Body MDM Narrative MDM Narrative:: 49-year-old male ESRD on dialysis presents to the emergency department today for complaints of abscess right buttock patient reports while at dialysis yesterday he received IV antibiotics which did improve his symptoms in fact the abscess ruptured patient came in for further evaluation of the abscess which has ruptured today On exam patient has small draining abscess to the right buttock no evidence of perianal abscess no surrounding cellulitis Patient given injection of Rocephin patient was given a prescription for clindamycin 2 days ago but stopped taking it patient directed to continue take the clindamycin till it is finished For emergent concerns patient instructed return immediately Patient data External records reviewed:: [facility] previous records Clinical information provided by:: patient Social determinants that could affect healthcare access:: none Patient has the following chronic illnesses:: History How is presenting disease/condition affected by chronic disease/condition?: exacerbated by Evaluation data The following diagnostics were reviewed and interpreted by me:: other (specify) (N/A) Lab and/or radiology exams considered but not ordered:: Consider not order Interpretation Summary: N/A Medications / Prescriptions Medications or Prescriptions considered but not ordered:: Given Medication administrations:: Medication Administration History Discontinued Medications Ceftriaxone Sodium (Ceftriaxone Sod Inj 1,000 Mg Vial) 1,000 mg IM X1 ONE Stop: 09/30/24 14:06 Last Admin: 09/30/24 14:26 Dose: 1,000 mg Documented By: Lidocaine HCl (Lidocaine Hcl 1% 20 Ml Vial) 2.1 ml INFL X1 ONE Stop: 09/30/24 14:06 Last Admin: 09/30/24 14:28 Dose: 2.1 ml Documented By: Given Consultations Consultation(s) initiated? (list below): No Diagnosis Skin/Abscess Differential Diagnosis: abscess of skin or subcutaneous tissue and cellulitis Most likely diagnosis given after review of the tests above:: Abscess Admission Indicated Admission indicated?: not indicated Admission Request Was there a request for admission?: No Disposition Plan Disposition Plan: Discharge Discharge Attestation Discharge Attestation: The patient and all family members were given an opportunity to ask questions and understood the discharge instructions. Discharge instructions specifically effects, indications for sooner follow up or return to the emergency department, and the expected course of current diagnosis. Patient condition: Stable Discharge Plan Plan Patient Disposition: HOME (Self Care) Disposition Comment: Stable Prescriptions/Referrals Prescriptions/Med Rec: No Action omeprazole 40 mg capsule,delayed release(DR/EC) 40 mg PO QDAY Tradjenta 5 mg tablet 5 mg PO QDAY Patient Comments: TAKE 1 TABLET BY MOUTH EVERY DAY Velphoro 500 mg tablet,chewable 500 mg PO TID Patient Comments: TAKE 2 TABLETS BY MOUTH WITH MEALS THREE TIMES DAILY Rx Instructions: WITH MEALS hydrocodone-acetaminophen 5-325 mg tablet 1 tab PO Q8H MDD 3 PRN (Reason: pain) Qty: 14 0RF atorvastatin 80 mg tablet 80 mg PO HS 30 Days Qty: 30 2RF Eliquis 2.5 mg tablet 2.5 mg PO BID Patient Comments: TAKE 1 TABLET BY MOUTH TWICE DAILY midodrine 5 mg Tablet 10 mg PO TID PRN (Reason: hypotension) Qty: 30 0RF Problem List Clinical Impression: Abscess of buttock Patient/Caregiver Discharge Instructions Education Materials: ED Abscess Antibiotic ... Additional Instructions: Please follow up with your primary care doctor in the next 24-48hrs for any worsening symptoms return here immediately Take all antibiotics as prescribed Print Language: Mongolian Stand Alone Forms: Orin Award Info., Patient Portal Info Letter PA/WATCHER LOOKOUT TOWER Supervising Physician PA/WATCHER LOOKOUT TOWER Supervising Physician: Dr fulton
[2024-09-30] MEDS: cefTRIAXone SOD INJ 1,000 MG VIAL 1000 MG IM (14:26)
[2024-09-30] MEDS: LIDOCAINE HCL 1% 20 ML VIAL 2.1 ML INFL (14:28)
== END 2024-09-30 14:33 | disposition home or self-care (01) ==
LOC: SERX 14:26
PROVIDERS: Emergency Provider Emergency Medicine; PCP Family Medicine
DX: L02.31 Cutaneous abscess of buttock (principal); N18.6 End stage renal disease; Z99.2 Dependence on renal dialysis
CPT/HCPCS: 96372; 99283; J0696; J3490

== ENCOUNTER → 2024-11-25 | Outpatient (CLI) | payer MEDICARE, MEDICAID, SELFPAY ==
--- NOTE | 2024-11-25 08:44 | XR_ITS ---
Examination: Retroperitoneal ultrasound, complete Technique: Multiple high resolution grayscale images of the retroperitoneum obtained, including kidneys and bladder. Exam date and time:November 25, 2024 0851 hours INDICATIONS: Diagnosis polycythemia, renal failure since 2019 FINDINGS: Right kidney 7.1 cm cortex 1.2 cm Midpole cyst 5 mm Left kidney 8.4 cm cortex 1.3 cm Lower pole cyst 12 mm No hydronephrosis Contracted urinary bladder No prostatomegaly IMPRESSION: Small kidneys with bilateral renal cortical thinning No hydronephrosis
== END | disposition home or self-care (01) ==
PROVIDERS: PCP Internal Medicine Nephrology; Referring Provider Internal Medicine Nephrology; Visit Provider Radiology Diagnostic Radiology
DX: N28.89 Other specified disorders of kidney and ureter (principal)
CPT/HCPCS: 76770

== ENCOUNTER 2024-12-17 05:38 | Emergency (ER) | payer MEDICARE, MEDICAID, SELFPAY ==
[2024-12-17] VITALS (8 sets, daily range): BP systolic 75–124; BP diastolic 54–86; PULSE 74–111; RESP 15–91; TEMP 36.5–37.8; O2SAT 91–100; BMI 36.9
--- NOTE | 2024-12-17 05:49 | EDRME_ITS ---
Rapid Medical Screening Exam [facility] Arrival date/time: 12/17/24 05:38 49M with history of DM, ESRD, HTN and CAD presents to ED with several days of non-bloody diarrhea, N/V, and ab pain/cramping. Chief Complaint: Nausea/Vomiting/Diarrhea Vital signs: Vital Signs Temperature 97.7 F 12/17/24 05:44 Pulse Rate 111 H 12/17/24 05:44 Respiratory Rate 19 12/17/24 05:44 Blood Pressure 110/72 12/17/24 05:44 Pulse Oximetry (%) 96 12/17/24 05:44 Oxygen Delivery Method Room Air 12/17/24 05:44
--- NOTE | 2024-12-17 05:50 | XR_ITS ---
Examination: CT abdomen and pelvis without contrast. Coronal 3-D reconstructions. Sagittal 2-D reconstructions. Date and time of exam:December 17, 2024 0655 hours Comparison June 05, 2024 INDICATIONS: Mid abdominal pain nausea vomiting beginning 2 days ago CTDI: vol (mGy): 13.8 DLP: (mGycm): 1031 Technique: Axial images of the abdomen have been obtained, 3 mm slice thickness Intravenous contrast material has not been administered. Low dose protocols were performed. One or more of the following dose reduction techniques were used; automated exposure control, adjustment of the mA and/or KV according to patient size, use of iterative reconstruction technique. Findings: Liver is mildly irregular in contour No gallstones Spleen not enlarged No pancreatic or adrenal mass Atrophic kidneys with renal arterial calcification, no hydronephrosis Aorta normal size Normal appendix No bowel obstruction Scattered colonic diverticulosis Contracted urinary bladder with wall thickening No significant prostatomegaly Moderate degenerative disc disease L1-L2, L4-L5, L4-L5 4 mm on lumbar disc bulge Impression : Suspect primary hepatocellular disease Atrophic kidneys with renal arterial calcifications, no hydronephrosis or ureteral calculi. Normal appendix No bowel obstruction Colonic diverticulosis, no diverticulitis Contracted urinary bladder with wall thickening, consider cystitis
[2024-12-17] MEDS: ONDANSETRON ODT 4 MG TABRAP PO (05:57)
[2024-12-17] MEDS: DICYCLOMINE 10 MG CAPSULE PO (05:58)
[2024-12-17 06:54] LABS: Basophils # (Auto) 0.0 Thou/mm3 (0.0-0.2); Basophils % (Auto) 0 % (0-2.5); Eosinophils # (Auto) 0.4 Thou/mm3 (0.0-0.5); Eosinophils % (Auto) 4 % (0-10); Hematocrit 53.7 % (41.0-53.0); Hemoglobin 17.4 g/dL (13.5-16.0); Immature Granulocytes Auto 0.03 Thou/mm3 (0.00-0.00); Lymphocytes # (Auto) 2.0 Thou/mm3 (1.0-4.8); Lymphocytes % (Auto) 18 % (10-50); Mean Corpuscular HGB Conc 32.4 g/dl (31.0-37.0); Mean Corpuscular Hemoglobin 26.5 pg (25.0-35.0); Mean Corpuscular Volume 82 fL (80-100); Monocytes # (Auto) 0.8 Thou/mm3 (0.0-0.8); Monocytes % (Auto) 7 % (0-12); Neutrophils # (Auto) 8.0 Thou/mm3 (1.8-7.7); Neutrophils % (Auto) 71 % (37-80); Nucleated Red Blood Cell # 0.00 Thou/mm3 (0.00-0.00); Nucleated Red Blood Cell % 0 /100 WBC (0); Platelet Count 237 Thou/mm3 (140-440); RDW Standard Deviation 56.3 fL (35.1-43.9); Red Blood Count 6.57 Miln/mm3 (4.50-5.90); White Blood Count 11.3 Thou/mm3 (3.8-10.6)
[2024-12-17 07:11] LABS: Lactate (Lactic Acid) 1.8 mMol/L (0.4-2.0)
[2024-12-17 07:23] LABS: Alanine Aminotransferase 8 U/L (10-49); Albumin, Serum 4.5 gm/dL (3.5-5.0); Albumin/Globulin Ratio 1.2 (1.2-2.2); Alkaline Phosphatase 283 U/L (46-116); Anion Gap 16 (7-16); Aspartate Amino Transferase 15 U/L (0-34); BUN/Creatinine Ratio 3 Ratio (12-20); Bilirubin,Total 0.8 mg/dL (0.3-1.2); Blood Urea Nitrogen 45 mg/dL (9-23); Calcium 8.3 mg/dL (8.3-10.6); Calcium (Corrected) 8.3 mg/dL (8.5-10.1); Carbon Dioxide 25.8 mMol/L (20.0-31.0); Chloride 96 mMol/L (98-107); Creatinine (Component) 16.8 mg/dL (0.6-1.3); Estimated Creatinine Clearance 7.2 mL/min (>60); Globulin 3.7 gm/dL (2.3-3.5); Glucose 117 mg/dL (74-106); Lipase 80 U/L (12-53); Osmolality,Calculated 288 (275-295); Potassium 4.1 mMol/L (3.4-5.1); Procalcitonin 0.67 ng/ml (0.0-0.49); Sodium 138 mMol/L (136-145); Total Protein 8.2 gm/dL (5.7-8.2); eGFR 3 See Note
--- NOTE | 2024-12-17 08:00 | PD.EDNV ---
Nausea/Vomit./Diarrhea-RME/HPI General Chief complaint: Nausea/Vomiting/Diarrhea Stated complaint: DIARRHEA,VOMITING Time Seen by Provider: 12/17/24 08:01 Arrival date/time: 12/17/24 05:38 Limitations: no limitations RME / HPI RME / HPI Narrative: 12/17/24 05:38 49M with history of DM, ESRD, HTN and CAD presents to ED with several days of non-bloody diarrhea, N/V, and ab pain/cramping. DR. JOHNSON MAIN ED EVALUATION: 49 year old male presents to the Emergency Department accompanied by his with complaints of nausea, vomiting x10 episodes, and diarrhea x10 episodes. Patient was hypotensive here, last BP of 75/54. No sick contacts or other symptoms reported. He states he missed dialysis on Saturday because he was sick and has dialysis scheduled tomorrow but not feeling well. PMHx: ESRD, dialysis T//SAT, diabetes, hypertension, and CAD. 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 Social Hx: No tobacco, alcohol, or substance use. Related Data Home Medications ?Medication ?Instructions ?Recorded ?Confirmed linagliptin 5 mg tablet (Tradjenta) 5 mg PO QDAY 08/21/23 06/05/24 omeprazole 40 mg capsule,delayed 40 mg PO QDAY 08/21/23 06/05/24 release sucroferric oxyhydroxide 500 mg 500 mg PO TID 08/21/23 06/05/24 chewable tablet (Velphoro) apixaban 2.5 mg tablet (Eliquis) 2.5 mg PO BID 06/05/24 06/05/24 Previous Rx's ?Medication ?Instructions ?Recorded atorvastatin 80 mg tablet 80 mg PO HS 30 days #30 tabs 04/25/22 midodrine 5 mg tablet 10 mg (2 x 5 mg) PO TID PRN 06/07/24 hypotension #30 tabs hydrocodone 5 mg-acetaminophen 325 1 tab PO Q8H PRN pain #14 tabs 09/21/24 mg tablet ondansetron HCl 4 mg tablet 4 mg PO Q8H PRN nausea and 12/17/24 vomiting 4 days #14 tabs Allergies Allergy/AdvReac Type Severity Reaction Status Date / Time pollen extracts Allergy Severe Sneezing Verified 12/17/24 05:38 sulfamethoxazole (From Allergy Severe Hives Verified 12/17/24 05:38 Bactrim) trimethoprim (From Bactrim) Allergy Hives Verified 12/17/24 05:38 Review of Systems Review of Systems Systems Reviewed: All systems reviewed, normal except as documented Past Medical History Past Medical History CARDIAC: Positive Cardiac Disorders, Hypercholesterolemia, Hypertension and Hypotension RESPIRATORY: Positive Sleep Apnea GASTROINTESTINAL: Positive Obesity GENITOURINARY: Positive Genitourinary Disorders, Renal Disease and Dialysis ENT: Positive Cataracts (BILATERAL EYES) ENDOCRINE: Positive Endocrine Disorders, Diabetes Mellitus Type 2 and Hypothyroidism OTHER HISTORY: Positive Chicken Pox Family History FAMILY HISTORY: Positive Family Cardiac Disorders Surgical History SURGICAL: Positive Coronary Stent and Amputation Social History SMOKING STATUS: Never smoker SUBSTANCE USE: does not use ED Exam General Limitations: Present no limitations General appearance: Present alert and in no apparent distress Head Head exam: Present atraumatic, normocephalic and normal inspection Eye Eye exam: Present normal appearance, PERRL and EOMI ENT ENT exam: Present normal exam, normal oropharynx and mucous membranes moist Neck Neck exam: Present normal inspection, full ROM and trachea midline Chest Chest inspection: Present normal inspection and symmetric chest wall rise Respiratory Respiratory exam: Present normal lung sounds bilaterally Cardiovascular Cardiovascular exam: Present regular rate, normal rhythm and normal heart sounds Abdominal Exam Abdominal exam: Present soft and normal bowel sounds Extremities Exam Extremities exam: Present full ROM and other (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 No sores.); Absent pedal edema Back Exam Back exam: Present normal inspection and full ROM Neurological Exam Neurological exam: Present alert, oriented X3 and CN II-XII intact Psychiatric Psychiatric exam: Present normal affect and normal mood Skin Skin exam: Present warm, dry, intact and normal color Course Quality Measures none Orders Category Date Time Status Bedside COVID-19 Antigen Test NOW Care 12/17/24 08:22 Active Bedside Influenza A&B Antigen Test NOW Care 12/17/24 08:24 Completed [employer] Q4H START 00 Care 12/17/24 08:29 Active Fingerstick [Bedside Blood Glucose] NOW Care 12/17/24 06:[address] abdomen pelvis wo con Stat Exams 12/17/24 05:50 Completed Blood Culture (Lab) Stat Lab 12/17/24 08:07 Received CBC Stat Lab 12/17/24 06:37 Completed CMP [Comprehensive Metabolic Panel] Stat Lab 12/17/24 06:37 Completed Clostridium Difficile PCR Stat Lab 12/17/24 Ordered Lactate (Lactic Acid) Stat Lab 12/17/24 07:06 Completed Lipase Stat Lab 12/17/24 06:37 Completed Procalcitonin Stat Lab 12/17/24 06:37 Completed Stool for WBCs Stat Lab 12/17/24 08:03 Ordered Urinalysis, C/S if Indicated Stat Lab 12/17/24 05:50 Ordered Dicyclomine [Bentyl] Med 12/17/24 05:50 Discontinued 10 mg PO X1 ONE Ondansetron Odt [Zofran Odt] Med 12/17/24 05:50 Discontinued 4 mg PO X1 ONE Pantoprazole Inj [Protonix Inj] Med 12/17/24 08:02 Discontinued 40 mg IVP X1 ONE Ringers Lactated 1000 ml [Lactated Ringers] 500 ml Med 12/17/24 10:45 Active IV 999 mls/hr Sodium Chloride 0.9% 1000 ml [Ns] 1,000 ml Med 12/17/24 08:02 Discontinued IV 999 mls/hr Vital Signs Vital signs: Vital Signs Temperature 97.7 F 12/17/24 05:44 Pulse Rate 111 H 12/17/24 05:44 Respiratory Rate 19 12/17/24 05:44 Blood Pressure 110/72 12/17/24 05:44 Pulse Oximetry (%) 96 12/17/24 05:44 Oxygen Delivery Method Room Air 12/17/24 05:44 Nausea/Vomiting/Diarrhea MDM Narrative MDM Narrative:: I, Philomena Martinez, am scribing for and in the presence of Dr. Johnson. Nausea, vomiting, diarrhea, gastroenteritis, and hypotension. Plan to give fluids and reevaluate. Patient data External records reviewed:: [facility] previous records Clinical information provided by:: patient Social determinants that could affect healthcare access:: none Patient has the following chronic illnesses:: PMHx: ESRD, diabetes, hypertension, and CAD. Social Hx: No tobacco, alcohol, or substance use. How is presenting disease/condition affected by chronic disease/condition?: exacerbated by Evaluation data The following diagnostics were reviewed and interpreted by me:: lab results and radiology exam(s) Lab and/or radiology exams considered but not ordered:: none Interpretation Summary: Procedure(s): CT abdomen pelvis wo con Accession Number(s): [id number] cc: Conrad Garduno MD; Judd Welch MD; Walter Peraza PA-C~ Examination: CT abdomen and pelvis without contrast. Coronal 3-D reconstructions. Sagittal 2-D reconstructions. Date and time of exam:December 17, 2024 0655 hours Comparison June 05, 2024 INDICATIONS: Mid abdominal pain nausea vomiting beginning 2 days ago CTDI: vol (mGy): 13.8 DLP: (mGycm): 1031 Technique: Axial images of the abdomen have been obtained, 3 mm slice thickness Intravenous contrast material has not been administered. Low dose protocols were performed. One or more of the following dose reduction techniques were used; automated exposure control, adjustment of the mA and/or KV according to patient size, use of iterative reconstruction technique. Findings: Liver is mildly irregular in contour No gallstones Spleen not enlarged No pancreatic or adrenal mass Atrophic kidneys with renal arterial calcification, no hydronephrosis Aorta normal size Normal appendix No bowel obstruction Scattered colonic diverticulosis Contracted urinary bladder with wall thickening No significant prostatomegaly Moderate degenerative disc disease L1-L2, L4-L5, L4-L5 4 mm on lumbar disc bulge Impression : Suspect primary hepatocellular disease Atrophic kidneys with renal arterial calcifications, no hydronephrosis or ureteral calculi. Normal appendix No bowel obstruction Colonic diverticulosis, no diverticulitis Contracted urinary bladder with wall thickening, consider cystitis Dictated By: Judd Welch MD Medications / Prescriptions Medications / Prescriptions considered but not ordered:: none Medication administrations:: Medication Administration History Lactated Ringer's (Lactated Ringers) 500 mls @ 999 mls/hr IV .Q31M ONE Stop: 12/17/24 11:15 Discontinued Medications Dicyclomine HCl (Dicyclomine 10 Mg Capsule) 10 mg PO X1 ONE Stop: 12/17/24 05:51 Last Admin: 12/17/24 05:58 Dose: 10 mg Documented By: FF Sodium Chloride (Ns) 1,000 mls @ 999 mls/hr IV .Q1H1M ONE Stop: 12/17/24 09:02 Last Infusion: 12/17/24 09:53 Dose: Infused Documented By: Admin: 12/17/24 08:33 Dose: 999 mls/hr Documented By: ZULMA Ondansetron HCl (Ondansetron Odt 4 Mg Tabrap) 4 mg PO X1 ONE; Protocol Stop: 12/17/24 05:51 Last Admin: 12/17/24 05:57 Dose: 4 mg Documented By: PHYLLIS Pantoprazole Sodium (Pantoprazole Inj 40 Mg Vial) 40 mg IVP X1 ONE Stop: 12/17/24 08:03 Last Admin: 12/17/24 08:34 Dose: 40 mg Documented By: GM see above Consultations Consultation(s) initiated? (list below): No Diagnosis Nausea Differential Diagnosis: traveler's diarrhea, gastroenteritis and dehydration Most likely diagnosis given after review of the tests above:: Gastroenteritis ESRD Admission Indicated Admission indicated?: not indicated Admission Request Was there a request for admission?: No Disposition Plan Disposition Plan: Discharge Discharge Attestation Discharge Attestation: The patient and all family members were given an opportunity to ask questions and understood the discharge instructions. Discharge instructions specifically effects, indications for sooner follow up or return to the emergency department, and the expected course of current diagnosis. Patient condition: Stable Discharge Plan Plan Patient Disposition: HOME (Self Care) Patient condition on transfer: Stable Prescriptions/Referrals Prescriptions/Med Rec: New ondansetron HCl 4 mg tablet 4 mg PO Q8H MDD 3 PRN (Reason: nausea and vomiting) 4 Days Qty: 14 0RF No Action omeprazole 40 mg capsule,delayed release(DR/EC) 40 mg PO QDAY Tradjenta 5 mg tablet 5 mg PO QDAY Patient Comments: TAKE 1 TABLET BY MOUTH EVERY DAY Velphoro 500 mg tablet,chewable 500 mg PO TID Patient Comments: TAKE 2 TABLETS BY MOUTH WITH MEALS THREE TIMES DAILY Rx Instructions: WITH MEALS hydrocodone-acetaminophen 5-325 mg tablet 1 tab PO Q8H MDD 3 PRN (Reason: pain) Qty: 14 0RF atorvastatin 80 mg tablet 80 mg PO HS 30 Days Qty: 30 2RF Eliquis 2.5 mg tablet 2.5 mg PO BID Patient Comments: TAKE 1 TABLET BY MOUTH TWICE DAILY midodrine 5 mg Tablet 10 mg PO TID PRN (Reason: hypotension) Qty: 30 0RF Referrals: Conrad Garduno MD [Primary Care Provider] - In 1 week Problem List Clinical Impression: Gastroenteritis, ESRD (end stage renal disease) on dialysis Patient/Caregiver Discharge Instructions Additional Instructions: Please follow-up with your primary care physician within 2-3 days and with your director building. Return to the Emergency Department as needed. Print Language: Bermudian Stand Alone Forms: Orin Award Info., Patient Portal Info Letter
--- NOTE | 2024-12-17 08:27 | PC.NURSE ---
PER PT, I WAS TOLD I COULD ONLY DRINK 1.5L OF FLUIDS EVERYDAY.
--- NOTE | 2024-12-17 08:30 | PC.NURSE ---
THIS RN CLARIFIED WITH DR. JOHNSON IF OK TO GIVE 1L NS BOLUS TO PT; MD MADE AWARE PT HAS DAILY FLUID LIMIT INTAKE OF 1.5L; PER DR. JOHNSON, OK TO GIVE 1L NS BOLUS TO PT AT THIS TIME; PT HAS HAD MULTIPLE EMESIS EPISODE AND DIARRHEA STARTING 2 DAYS AGO WITH LAST DIARRHEA EPISODE LAST NIGHT.
[2024-12-17] MEDS: SODIUM CHLORIDE 0.9% 1000 ML 1,000 ML 999 ML IV (08:33)
--- NOTE | 2024-12-17 10:00 | PC.NURSE ---
PER DR. JOHNSON, PT OK TO EAT WITH FULL LIQUID DIET. PT GIVEN JELL-O, VANILLA PUDDING, AND WATER AT THIS TIME.
[2024-12-17] MEDS: RINGERS LACTATED 1000 ML 500 ML 999 ML IV (11:20)
== END 2024-12-17 12:06 | disposition home or self-care (01) ==
PROVIDERS: Physician Assistant; Emergency Provider Family Medicine; PCP Family Medicine
DX: K52.9 Noninfective gastroenteritis and colitis, unspecified (principal); N18.6 End stage renal disease; K57.30 Diverticulosis of large intestine without perforation or abscess without bleeding; N32.89 Other specified disorders of bladder; E11.22 Type 2 diabetes mellitus with diabetic chronic kidney disease; I12.0 Hypertensive chronic kidney disease with stage 5 chronic kidney disease or end stage renal disease; Z79.84 Long term (current) use of oral hypoglycemic drugs; Z99.2 Dependence on renal dialysis
CPT/HCPCS: 36415; 74176; 80053; 81001; 83605; 83690; 84145; 85025; 87040; 87205; 87400; 87493; 87811; 96361; 96374; 99284; J2470; J7030; J7120; Q0162; A9270

== ENCOUNTER → 2025-01-01 | Outpatient (CLI) | payer MEDICARE, MEDICAID, SELFPAY ==
[2025-01-01 09:01] LABS: Alanine Aminotransferase 12 U/L (10-49); Albumin, Serum 4.2 gm/dL (3.5-5.0); Albumin/Globulin Ratio 1.2 (1.2-2.2); Alkaline Phosphatase 301 U/L (46-116); Anion Gap 16 (7-16); Aspartate Amino Transferase 18 U/L (0-34); BUN/Creatinine Ratio 3 Ratio (12-20); Bilirubin,Total 0.6 mg/dL (0.3-1.2); Blood Urea Nitrogen 39 mg/dL (9-23); Calcium 8.7 mg/dL (8.3-10.6); Calcium (Corrected) 8.7 mg/dL (8.5-10.1); Carbon Dioxide 26.6 mMol/L (20.0-31.0); Cardiac Risk Estimate 4.4 RATIO (4.0-6.7); Chloride 96 mMol/L (98-107); Cholesterol 115 mg/dL (132-200); Creatinine (Component) 13.8 mg/dL (0.6-1.3); Globulin 3.4 gm/dL (2.3-3.5); Glucose 102 mg/dL (74-106); HDL Cholesterol 26 mg/dL (40-60); LDL Cholesterol,Calculated 61 mg/dL (0-130); Osmolality,Calculated 286 (275-295); Potassium 4.8 mMol/L (3.4-5.1); Sodium 139 mMol/L (136-145); Total Protein 7.6 gm/dL (5.7-8.2); Triglycerides 140 mg/dL (30-150); eGFR 4 See Note
== END | disposition home or self-care (01) ==
LOC: COPL 06:39
PROVIDERS: PCP Family Medicine; Referring Provider Specialist; Visit Provider Specialist
DX: I10 Essential (primary) hypertension (principal); E78.00 Pure hypercholesterolemia, unspecified
CPT/HCPCS: 36415; 80053; 80061

== ENCOUNTER → 2025-03-31 | Outpatient (CLI) | payer MEDICARE, MEDICAID, SELFPAY ==
[2025-03-31 10:38] LABS: INR 4.6 (0.9-1.3); Partial Thromboplastin Time 58.0 Seconds (22.0-36.0)
[2025-03-31 11:03] LABS: Prothrombin Time 42.4 Seconds (9.0-12.2)
== END | disposition home or self-care (01) ==
LOC: COPL 09:14
PROVIDERS: PCP Family Medicine; Referring Provider Internal Medicine Nephrology; Visit Provider Internal Medicine Nephrology
DX: I73.9 Peripheral vascular disease, unspecified (principal); D45 Polycythemia vera
CPT/HCPCS: 36415; 85610; 85730

== ENCOUNTER → 2025-04-07 | Outpatient (CLI) | payer MEDICARE, MEDICAID, SELFPAY ==
[2025-04-07 09:30] LABS: INR 1.2 (0.9-1.3); Prothrombin Time 12.5 Seconds (9.0-12.2)
== END | disposition home or self-care (01) ==
LOC: COPL 08:47
PROVIDERS: PCP Family Medicine; Referring Provider Internal Medicine Nephrology; Visit Provider Internal Medicine Nephrology
DX: I73.9 Peripheral vascular disease, unspecified (principal); R71.8 Other abnormality of red blood cells
CPT/HCPCS: 36415; 85610

== ENCOUNTER → 2025-04-14 | Outpatient (CLI) | payer MEDICARE, MEDICAID, SELFPAY ==
[2025-04-14 10:04] LABS: INR 1.3 (0.9-1.3); Prothrombin Time 13.4 Seconds (9.0-12.2)
== END | disposition home or self-care (01) ==
LOC: COPL 09:06
PROVIDERS: PCP Family Medicine; Referring Provider Internal Medicine Nephrology; Visit Provider Internal Medicine Nephrology
DX: I73.9 Peripheral vascular disease, unspecified (principal); R71.8 Other abnormality of red blood cells
CPT/HCPCS: 36415; 85610

== ENCOUNTER 2025-04-19 13:00 | Inpatient (IN) | payer MEDICARE, MEDICAID, SELFPAY ==
[2025-04-19] VITALS (7 sets, daily range): BP systolic 121–150; BP diastolic 63–92; PULSE 85–111; RESP 13–99; TEMP 36.8–38.6; O2SAT 93–98; BMI 36.9; BMI 37.3
--- NOTE | 2025-04-19 14:00 | PC.NURSE ---
PT ASKED AT THIS TIME IF PT MAKES HIS OWN URINE; PER PT, I BARELY MAKE A DROP OF URINE. YVAN POSADAS MADE AWARE; PER YVAN POSADAS, CANCEL URINALYSIS.
--- NOTE | 2025-04-19 14:13 | XR_ITS ---
Examination: Foot, left, 3 views Technique: AP, oblique, lateral views foot, 3 views Date and time of exam: April 19, 2025, 1436 hours INDICATIONS: Redness swelling and pain involving the left foot today. FINDINGS: Ludwig cortical bone destruction involving the distal half of the amputated fourth metatarsal Cortical bone destruction involving the amputated end of the third metatarsal Suspicious for early cortical bone destruction second metatarsal head No foreign body IMPRESSION: Extensive osteomyelitis as above Consider MRI foot without contrast follow-up
--- NOTE | 2025-04-19 14:13 | EKG_ITS ---
[facility] Test Date: 2025-04-19 Pat Name: HECTOR JUSTICE Department: Room: - Gender: Male Front Desk Receptionist: : 1975 Requested By: Anthony Mckay Order Number: [id number] Reading MD: Anthony Mckay Measurements Intervals [place] Rate: 102 P: 43 SD: 157 QRS: 244 QRSD: 101 T: 51 QT: 326 QTc: 425 Interpretive Statements SINUS TACHYCARDIA PATTERN CONSISTENT WITH PULMONARY DISEASE POSSIBLE RIGHT VENTRICULAR HYPERTROPHY [SOME/ALL OF: PROMINENT R IN V1, LATE TRANSITION, RAD, JENI, SSS] Compared to ECG 06/04/2024 23:36:03 Myocardial infarct finding no longer present /store/S0/[id number]/ecg/[id number].pdf
--- NOTE | 2025-04-19 14:16 | PD.EDADULT ---
ED General RME/HPI General Chief complaint: Extremity Problem,Nontraumatic Stated complaint: CHILLS, SHAKING, POSS. LEFT FOOT INFECTION Time Seen by Provider: 04/19/25 13:02 Arrival date/time: 04/19/25 13:00 CC: Pain and redness to the top of the left foot HPI ongoing for approximately 1 week. Patient is a brittle diabetic hypertensive was already had toes amputated from the left foot and has a right BKA. Patient denies fever, but has the rigors as I am speaking to him. The patient is mildly tachycardic. Patient states his blood sugar is 100 . Patient denies chest pain shortness of breath or difficulty breathing. Localized pain to the foot is 0 when nobody is touching, and 5-6 when it is palpated. Related Data Home Medications ?Medication ?Instructions ?Recorded ?Confirmed linagliptin 5 mg tablet (Tradjenta) 5 mg PO QDAY 08/21/23 06/05/24 omeprazole 40 mg capsule,delayed 40 mg PO QDAY 08/21/23 06/05/24 release sucroferric oxyhydroxide 500 mg 500 mg PO TID 08/21/23 06/05/24 chewable tablet (Velphoro) apixaban 2.5 mg tablet (Eliquis) 2.5 mg PO BID 06/05/24 06/05/24 Previous Rx's ?Medication ?Instructions ?Recorded atorvastatin 80 mg tablet 80 mg PO HS 30 days #30 tabs 04/25/22 midodrine 5 mg tablet 10 mg (2 x 5 mg) PO TID PRN 06/07/24 hypotension #30 tabs hydrocodone 5 mg-acetaminophen 325 1 tab PO Q8H PRN pain #14 tabs 09/21/24 mg tablet Allergies Allergy/AdvReac Type Severity Reaction Status Date / Time pollen extracts Allergy Severe Sneezing Verified 04/19/25 13:04 sulfamethoxazole (From Allergy Severe Hives Verified 04/19/25 13:04 Bactrim) trimethoprim (From Bactrim) Allergy Hives Verified 04/19/25 13:04 Review of Systems Review of Systems Narrative Review of Systems: GEN: No fever, no chills, no weight loss EYES: No discharge, no visual changes, no pain HEENT: No ear pain, no congestion, no sore throat PULM: No shortness of breath, no cough, no congestion CV: No chest pain, no dyspnea on exertion, no palpitations GI: No nausea, no vomiting, no diarrhea, no pain, no constipation : No frequency, no urgency, no dysuria MUSC/SKEL: No joint pain, no back pain, + foot pain SKIN: No rash PSYCH: No hallucinations, no depression HEME/LYMPH: No easy bleeding or bruising tendencies NEURO: No weakness, no headache Past Medical History Past Medical History NEUROLOGIC: Negative Neurological Disorders or Seizures CARDIAC: Positive Cardiac Disorders, Hypercholesterolemia, Hypertension and Hypotension; Negative Congestive Heart Failure RESPIRATORY: Positive Sleep Apnea; Negative Chronic Obstructive Pulmonary Disease (COPD) GASTROINTESTINAL: Positive Obesity; Negative Gastrointestinal Disorders GENITOURINARY: Positive Genitourinary Disorders, Renal Disease (DIALYSIS //SAT) and Dialysis MUSCULOSKELETAL: Negative Musculoskeletal Disorders ENT: Positive Cataracts ENDOCRINE: Positive Endocrine Disorders, Diabetes Mellitus Type 2 and Hypothyroidism; Negative Diabetes Mellitus Type 1 HEMATOLOGIC: Negative Blood Disorders OTHER HISTORY: Positive Chicken Pox; Negative Hospitalization, Autoimmune Disease, Falls, Blood Transfusions, Anesthesia Reactions, MRSA, Measles, Mumps or Cancer Family History FAMILY HISTORY: Positive Family Cardiac Disorders; Negative Family Psychiatric Problems, Family Respiratory Disorders, Family Gastrointestinal Problems, Family Cancer, Family Surgery or Family Anesthesia Reaction Surgical History SURGICAL: Positive Coronary Stent and Amputation Social History SMOKING STATUS: Never smoker SUBSTANCE USE: does not use ED Exam Narrative Physical exam: [General: Obese in moderate discomfort but not in any acute distress Head normocephalic HEENT: Within acceptable limits Neck is supple nontender Chest equal chest rise nontender to palpation Respiratory: Clear to auscultation no wheezes crackles or rubs CV: Rate rhythm is regular no murmurs rubs or clicks Abdomen is distended secondary to body habitus soft nontender no masses positive bowel sounds all 4 quadrants Back: No CVA tenderness no spinous process tenderness from cervical spine thoracic and lumbar spine Skin: Subtle erythema to the dorsum of the left foot overlying the 1st and 2nd metatarsal exquisitely tender with palpation, subtle erythema, no edema. Patient also has subtle tenderness over the medial malleolus without erythema or edema. Well-healed surgical scar to the left foot for the first great toe amputation. Right lower extremity BKA stump clean dry and intact surgical site well-healed. No erythema not warm to touch no edema. Otherwise skin is intact no petechiae rash induration ulceration or crepitus Extremities: Moving all extremity against resistance cap refill less than 2 seconds neurosensory intact Neuro: Awake alert oriented x3 Glascow coma 15 no focal deficits] Course Course Course Narrative: Because of the osteomyelitis patient will be admitted, therefore contacted Dr. Russ to arrange for inpatient house dialysis while he is not in his mission. Consulted Dr. Jordan who agrees to consult on the patient if salvage is not a possibility and amputation is required she is agreed to consult on this plan. Patient's case and laboratory findings clinical presentation discussed with resident for Dr. Farah, who agrees to accept the patient for admission. Quality Measures none Orders Category Date Time Status Reinforcing Steel Erector STAT Care 04/19/25 14:13 Active Continuous Pulse Oximetry STAT Care 04/19/25 14:13 Completed EKG (ED ONLY) *Do not use* NOW Care 04/19/25 14:13 Completed Insert IV NOW Care 04/19/25 14:13 Active NPO STAT Care 04/19/25 14:13 Active Strict Intake and Output Routine Care 04/19/25 14:13 Ordered Consult to General Surgery Stat Cons 04/19/25 15:39 Ordered Consult to Nephrology Stat Cons 04/19/25 15:40 Ordered EKG (ED Only) Stat Exams 04/19/25 14:13 Draft XR foot comp LT min 3V Stat Exams 04/19/25 14:13 Completed B-Type Natriuretic Peptide Stat Lab 04/19/25 14:42 Completed Blood Culture (Lab) Stat Lab 04/19/25 14:56 Received CBC Stat Lab 04/19/25 14:42 Completed CRP [C-Reactive Protein] Stat Lab 04/19/25 15:32 Received Comprehensive Metabolic Panel Stat Lab 04/19/25 15:32 Received ESR [Sed Rate (ESR)] Stat Lab 04/19/25 14:42 Completed LDH (Lactate Dehydrogenase) Stat Lab 04/19/25 15:32 Received Lactate (Lactic Acid) Stat Lab 04/19/25 14:42 Results Lipase Stat Lab 04/19/25 15:32 Received Magnesium Stat Lab 04/19/25 15:32 Received Partial Thromboplastin Time Stat Lab 04/19/25 14:42 Completed Phosphorous Stat Lab 04/19/25 15:32 Received Procalcitonin Stat Lab 04/19/25 15:32 Received Prothrombin Time with INR Stat Lab 04/19/25 14:42 Completed Troponin I Stat Lab 04/19/25 15:32 Received Acetaminophen Ivpb [Ofirmev Inj] Med 04/19/25 14:21 Discontinued 1,000 mg in 100 ml IV NOW Piper/Tazo 3.375 gm Premix [Zosyn] Med 04/19/25 15:07 Discontinued 3.375 gm in 50 ml IV X1 Ringers Lactated 1000 ml [Lactated Ringers] 1,000 ml Med 04/19/25 14:21 Discontinued IV 999 mls/hr Ringers Lactated 1000 ml [Lactated Ringers] 1,000 ml Med 04/19/25 14:21 Discontinued IV 999 mls/hr Ringers Lactated 1000 ml [Lactated Ringers] 1,000 ml Med 04/19/25 14:22 Discontinued IV 999 mls/hr Ringers Lactated 500 ml [Lactated Ringers] 500 ml Med 04/19/25 14:22 Discontinued IV 999 mls/hr Oxygen Delivery NOW RT 04/19/25 14:13 Active Vital Signs Vital signs: Vital Signs Temperature 98.9 F 04/19/25 13:17 Pulse Rate 111 H 04/19/25 13:17 Respiratory Rate 18 04/19/25 13:17 Blood Pressure 142/92 H 04/19/25 13:17 Pulse Oximetry (%) 95 04/19/25 13:17 Oxygen Delivery Method Room Air 04/19/25 13:17 Discharge Plan Plan Patient Disposition: Other Care w/in Hosp ([facility]) Patient condition on transfer: Stable Prescriptions/Referrals Prescriptions/Med Rec: No Action omeprazole 40 mg capsule,delayed release(DR/EC) 40 mg PO QDAY Tradjenta 5 mg tablet 5 mg PO QDAY Patient Comments: TAKE 1 TABLET BY MOUTH EVERY DAY Velphoro 500 mg tablet,chewable 500 mg PO TID Patient Comments: TAKE 2 TABLETS BY MOUTH WITH MEALS THREE TIMES DAILY Rx Instructions: WITH MEALS hydrocodone-acetaminophen 5-325 mg tablet 1 tab PO Q8H MDD 3 PRN (Reason: pain) Qty: 14 0RF atorvastatin 80 mg tablet 80 mg PO HS 30 Days Qty: 30 2RF Eliquis 2.5 mg tablet 2.5 mg PO BID Patient Comments: TAKE 1 TABLET BY MOUTH TWICE DAILY midodrine 5 mg Tablet 10 mg PO TID PRN (Reason: hypotension) Qty: 30 0RF Referrals: Conrad Garduno MD [Primary Care Provider, [facility]] - In 1 week Problem List Clinical Impression: Sepsis, Osteomyelitis, Foot pain, ESRD (end stage renal disease) on dialysis Patient/Caregiver Discharge Instructions Print Language: Swedish Stand Alone Forms: Orin Award Info., Patient Portal Info Letter PA/JUNIOR LINUX ADMINISTRATOR Supervising Physician PA/JUNIOR LINUX ADMINISTRATOR Supervising Physician: Anthony ISABEL Clinical Information Provided by: patient Medical Records reviewed [facility] Meds/Rx considered, not ordered None Labs/Rad/Tests considered, not ordered None Chronic Illness/Social Conditions Explain: Dialysis ESRD diabetes hypertension EKG Interpretation EKG #1: EKG Interpretation: EKG performed at 1429 shows a ventricular rate of 102 RI interval 157 QRS of 101 QTc of 385 the sinus tachycardia. Labs Labs: interpreted by me Lab(s) Interpretation(s): CBC shows a mild leukocytosis 11.1 H&H of 17.2 and 55.0 no thrombocytopenia Coags show PT 14.2 and INR 1.4 PTT at 30 Lactic of 3.5 Imaging Imaging interpretation: interpreted by [facility] Interpretation(s): Significant osteomyelitis of the left second metatarsal distal portion. Medication Administration(s) Medication Administration History Discontinued Medications Acetaminophen (Ofirmev Inj) 1,000 mg in 100 mls @ 250 mls/hr IV NOW ONE Stop: 04/19/25 14:44 Last Infusion: 04/19/25 15:30 Dose: Infused Documented By: Admin: 04/19/25 14:59 Dose: 250 mls/hr Documented By: Lactated Ringer's (Lactated Ringers) 1,000 mls @ 999 mls/hr IV .Q1H1M ONE Stop: 04/19/25 15:21 Last Infusion: 04/19/25 16:06 Dose: 999 mls/hr Documented By: Infusion: 04/19/25 15:38 Dose: 0 mls/hr Documented By: Admin: 04/19/25 14:59 Dose: 999 mls/hr Documented By: Lactated Ringer's (Lactated Ringers) 1,000 mls @ 999 mls/hr IV .Q1H1M ONE Stop: 04/19/25 15:21 Lactated Ringer's (Lactated Ringers) 1,000 mls @ 999 mls/hr IV .Q1H1M ONE Stop: 04/19/25 15:22 Lactated Ringer's (Lactated Ringers) 500 mls @ 999 mls/hr IV .Q31M ONE Stop: 04/19/25 14:52 Piperacillin/Tazobactam/Dextrose (Zosyn) 3.375 gm in 50 mls @ 100 mls/hr IV X1 ONE; Protocol Stop: 04/19/25 15:36 Last Admin: 04/19/25 15:39 Dose: 100 mls/hr Documented By: ZULMA
[2025-04-19] MEDS: RINGERS LACTATED 1000 ML 1,000 ML 999 ML IV ×2 (14:59→16:33)
[2025-04-19] MEDS: ACETAMINOPHEN IVPB 1,000 MG/100 ML VIAL 250 MG IV (14:59)
[2025-04-19 15:05] LABS: Lactate (Lactic Acid) 3.5 mMol/L (0.4-2.0)
[2025-04-19 15:09] LABS: Basophils # (Auto) 0.1 Thou/mm3 (0.0-0.2); Basophils % (Auto) 1 % (0-2.5); Eosinophils # (Auto) 0.2 Thou/mm3 (0.0-0.5); Eosinophils % (Auto) 1 % (0-10); Hematocrit 55.0 % (41.0-53.0); Hemoglobin 17.2 g/dL (13.5-16.0); Immature Granulocytes Auto 0.03 Thou/mm3 (0.00-0.00); Lymphocytes # (Auto) 1.0 Thou/mm3 (1.0-4.8); Lymphocytes % (Auto) 9 % (10-50); Mean Corpuscular HGB Conc 31.3 g/dl (31.0-37.0); Mean Corpuscular Hemoglobin 25.8 pg (25.0-35.0); Mean Corpuscular Volume 83 fL (80-100); Monocytes # (Auto) 0.6 Thou/mm3 (0.0-0.8); Monocytes % (Auto) 5 % (0-12); Neutrophils # (Auto) 9.4 Thou/mm3 (1.8-7.7); Neutrophils % (Auto) 84 % (37-80); Nucleated Red Blood Cell # 0.00 Thou/mm3 (0.00-0.00); Nucleated Red Blood Cell % 0 /100 WBC (0); Platelet Count 249 Thou/mm3 (140-440); RDW Standard Deviation 55.3 fL (35.1-43.9); Red Blood Count 6.67 Miln/mm3 (4.50-5.90); White Blood Count 11.1 Thou/mm3 (3.8-10.6)
--- NOTE | 2025-04-19 15:27 | PC.NURSE ---
SPOKE TO [facility]EN APPLICATION DEVELOPMENT INTERN [facility]; PER ALLEN FREGOSO, HIS AV FISTULA ON THE L ARM WAS A LITTLE CLOTTED BUT WE WERE STILL ABLE TO USE IT; IF YOU GUYS DO PLAN TO DIALYSIS HIM THERE, HIS AV FISTULA IS STILL WORKING; IT JUST NEEDS TO BE ACCESSED HIGHER.
[2025-04-19] MEDS: PIPER/TAZO 3.375 GM PREMIX 3.375 GM/50 ML BAG IV (15:39)
[2025-04-19 15:41] LABS: Sed Rate (ESR) 60 mm/hr (0-15)
[2025-04-19 15:43] LABS: INR 1.4 (0.9-1.3); Partial Thromboplastin Time 30.0 Seconds (22.0-36.0); Prothrombin Time 14.2 Seconds (9.0-12.2)
[2025-04-19 16:03] LABS: B-Type Natriuretic Peptide 28 pg/mL (0-100)
[2025-04-19 16:39] LABS: Alanine Aminotransferase 9 U/L (10-49); Albumin, Serum 4.2 gm/dL (3.5-5.0); Albumin/Globulin Ratio 1.6 (1.2-2.2); Alkaline Phosphatase 152 U/L (46-116); Anion Gap 15 (7-16); Aspartate Amino Transferase 15 U/L (0-34); BUN/Creatinine Ratio 3 Ratio (12-20); Bilirubin,Total 0.5 mg/dL (0.3-1.2); Blood Urea Nitrogen 60 mg/dL (9-23); C-Reactive Protein 4.1 mg/dL (0.0-0.9); Calcium 9.5 mg/dL (8.3-10.6); Calcium (Corrected) 9.5 mg/dL (8.5-10.1); Carbon Dioxide 27.3 mMol/L (20.0-31.0); Chloride 95 mMol/L (98-107); Creatinine (Component) 18.7 mg/dL (0.6-1.3); Estimated Creatinine Clearance 6.4 mL/min (>60); Globulin 2.7 gm/dL (2.3-3.5); Glucose 104 mg/dL (74-106); LDH (Lactate Dehydrogenase) 237 U/L (120-246); Lipase 100 U/L (12-53); Magnesium 2.6 mg/dL (1.6-2.6); Osmolality,Calculated 290 (275-295); Phosphorous 2.6 mg/dL (2.4-5.1); Potassium 5.5 mMol/L (3.4-5.1); Procalcitonin 0.85 ng/ml (0.0-0.49); Sodium 137 mMol/L (136-145); Total Protein 6.9 gm/dL (5.7-8.2); eGFR 3 See Note
[2025-04-19 16:44] LABS: Troponin I 0.139 ng/mL (0.0-0.045)
--- NOTE | 2025-04-19 17:45 | ESHP_ITS ---
<Statement entered by Nate Short MD - 04/20/25 15:58> Patient was seen and examined at bedside. I agree on the assessment and plan on this note as documented by resident Dr Eve Faith DO PGY1. 49-year-old male with past medical history of coronary artery disease status post PCI, [address] Bellamy, hypertension, ESRD on hemodialysis follows Dr. 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 Patient will be admitted for further workup. General surgery Dr. Jordan was consulted in the ED, we will start patient on broad-spectrum antibiotics vancomycin and Zosyn, will schedule for MRI of left foot to confirm osteomyelitis. Patient will receive hemodialysis in a.m. patient has been diagnosed with polycythemia vera per personal history, reports being on warfarin which was started by information receptionist, we will hold in anticipation of possible procedure. Will keep n.p.o. after midnight, pending surgery evaluation. Case discussed with attending Dr. Nicki Short MD PGY-2 Documentation for date of: 04/19/25 HPI History of Present Illness History of present illness: A 49-year-old male with past medical history of 6 trans-femoral stents (Dr. Bellamy), hypertension, ESRD on HD since 2019 T//Sat with Dr. Russ, T2DM complicated left toes amputation (2021 Dr. Rider) and right BKA (2020 Dr. Harvey) presents with pain and redness of left foot x 1 week. Admitted for osteomyelitis of left foot. Patient reported having an open wound on left foot for 3 weeks and on antibiotics (unk). His left foot pain came on a few days after finishing the antibiotics last week. Patient has been following outpatient with Dr. Rider. Reported burning sensation over top of the left foot. Reported history of smoking cocaine and alcohol use prior to HD. Patient reported taking warfarin. Last HD on Saturday. Reported some malfunction in his L fistula. Per patient, possible clots, has an appointment with ARISTIDES Ross in 2 days for a possible balloon? Per Dr. Russ, patient's fistula is functional and good to use. Denied chest pain, shortness of breath, history of [place], CABG. Patient did not remember his home medications nor bring any medications with him. Pending meds recs. Code: Full Code ED: VS: 142/92 HR 111 RR 1895% RA, initially afebrile 98.9, now febrile 101.4 Labs: WBC 11.1 Hgb 17.2 K 5.5 Bun 60 Creatinine 18.7 eGFR 3 lactate 3.5 Alk Phos 152 ESR 60 CRP 4.1 PT 14.2 INR 1.4 Trop I 0.139 lipase 100 procal 0.85 Imaging: Left foot x-ray showed cortical bone destruction of distal half amputated fourth metatarsal, amputated end of third metatarsal, suspect early cortical bone destruction second metatarsal head Meds: Zosyn, Tylenol 1 g, LR 1 L bolus Consults: Surgery, Dr. Jordan, appreciate recs: Salvage versus amputation. ?Nephrology, Dr. Russ, for inpatient HD Review of Systems Review of Systems Systems Reviewed: All systems reviewed, normal except as documented Exam Vital Signs Temp Pulse Resp BP Pulse Ox O2 Del Method 100.4 F 95 18 124/82 96 Room Air 04/19/25 17:12 04/19/25 17:12 04/19/25 17:12 04/19/25 17:12 04/19/25 17:12 04/19/25 17:12 Narrative Exam GENERAL APPEARANCE: awake and oriented x 3, well-developed, well-nourished HEENT: Normocephalic, atraumatic; pupils equal, round, reactive to light; EOMI; mucous membranes pink, moist; oropharynx clear NECK: Supple, large neck circumference LUNGS: Clear to auscultation bilaterally, breath sound equal bilaterally HEART: Tachycardia; normal S1, S2; no murmur ABDOMEN: No tenderness to palpation; normal BS; soft, no guarding, no rebound. EXTREMITIES: Right BKA, well healed; Left foot with 1st, 2nd, 3rd digits amputated; discoloration and mild erythema on skin over head of 4th metatarsal to 2nd metatarsal, tenderness to palpation from lateral sides of midfoot to top of metatarsals. Fistula on left upper arm, small scalp over proximal portion, decrease in vibration on proximal part NEUROLOGIC: awake; alert and oriented x3; cranial nerves II-XII grossly intact; no focal sensory or motor deficits PSYCHIATRIC: appropriate mood and affect SKIN: warm, dry, normal color; no rashes Results: Labs 04/20/25 04:14 04/20/25 04:14 Labs: Short CBC 04/19/25 Range/Units 14:42 WBC 11.1 H (3.8-10.6) Thou/mm3 Hgb 17.2 H (13.5-16.0) g/dL Hct 55.0 H (41.0-53.0) % Plt Count 249 (140-440) Thou/mm3 BMP 04/19/25 15:58 Sodium 137 Potassium 5.5 H Chloride 95 L Carbon Dioxide 27.3 BUN 60 H Creatinine 18.7 H* Glucose 104 Calcium 9.5 Cardiac Enzymes 04/19/25 Range/Units 15:58 Troponin I 0.139 H* (0.0-0.045) ng/mL Liver Function 04/19/25 Range/Units 15:58 Total Bilirubin 0.5 (0.3-1.2) mg/dL AST 15 (0-34) U/L ALT 9 L (10-49) U/L Alkaline Phosphatase 152 H (46-116) U/L Albumin 4.2 (3.5-5.0) gm/dL Quality Measures Quality Measures VTE prophylaxis Medications Home Medications and Allergies Home Medications ?Medication ?Instructions ?Recorded ?Confirmed ?Type linagliptin 5 mg tablet (Tradjenta) 5 mg PO QDAY 08/2004/19/25 History omeprazole 40 mg capsule,delayed 40 mg PO QDAY 4 04/19/25 History release sucroferric oxyhydroxide 500 mg 500 mg PO TID 08/21/23 04/19/25 History chewable tablet (Velphoro) warfarin 4 mg tablet 4 mg PO QDAY 04/19/25 History Allergies Allergy/AdvReac Type Severity Reaction Status Date / Time pollen extracts Allergy Severe Sneezing Verified 04/19/25 13:04 sulfamethoxazole (From Allergy Severe Hives Verified 04/19/25 13:04 Bactrim) trimethoprim (From Bactrim) Allergy Hives Verified 04/19/25 13:04 Visit Medications Acetaminophen (Acetaminophen 325 Mg Tablet) 650 mg PO Q6H PRN PRN Reason: Fever >100.4 and pain 1-3 Stop: 05/19/25 17:34 Ondansetron HCl (Ondansetron Inj 2 Mg/Ml Inj 2 Ml) 4 mg IVP Q6H PRN; Protocol PRN Reason: NAUSEA OR VOMITING Stop: 05/19/25 17:34 Sennosides (Senna Tablet) 1 tab PO QDAY PRN; Protocol PRN Reason: constipation Stop: 05/19/25 17:34 Discontinued Medications Acetaminophen (Ofirmev Inj) 1,000 mg in 100 mls @ 250 mls/hr IV NOW ONE Stop: 04/19/25 14:44 Last Infusion: 04/19/25 15:30 Dose: Infused Lactated Ringer's (Lactated Ringers) 1,000 mls @ 999 mls/hr IV .Q1H1M ONE Stop: 04/19/25 15:21 Last Infusion: 04/19/25 16:32 Dose: Infused Lactated Ringer's (Lactated Ringers) 1,000 mls @ 999 mls/hr IV .Q1H1M ONE Stop: 04/19/25 15:21 Last Admin: 04/19/25 16:33 Dose: 999 mls/hr Lactated Ringer's (Lactated Ringers) 1,000 mls @ 999 mls/hr IV .Q1H1M ONE Stop: 04/19/25 15:22 Lactated Ringer's (Lactated Ringers) 500 mls @ 999 mls/hr IV .Q31M ONE Stop: 04/19/25 14:52 Piperacillin/Tazobactam/Dextrose (Zosyn) 3.375 gm in 50 mls @ 100 mls/hr IV X1 ONE; Protocol Stop: 04/19/25 15:36 Last Infusion: 04/19/25 16:18 Dose: Infused Assessment & Plan Plan Summary: 49-year-old male with past medical history of 6 trans-femoral stents (Dr. Bellamy), hypertension, ESRD on HD since 2019 T//Sat with Dr. Russ, T2DM complicated left toes amputation (2021 Dr. Rider) and right BKA (2020 Dr. Harvey) presents with pain and redness of left foot x 1 week. Admitted for osteomyelitis of left foot. #Osteomyelitis Left foot x-ray showed cortical bone destruction of distal half amputated fourth metatarsal, amputated end of third metatarsal, suspect early cortical bone destruction second metatarsal head. Patient recently finished a course of antibiotic for wound on left foot, managed by Dr. Rider. Last seen Dr. Rider 1 week ago. Plan: -Pending MRI -Consulted surgery, Dr. Jordan, appreciate recs -Pending blood culture -Continue Zosyn, Vanc #ESRD ESRD on HD since 2019 T//Sat with Dr. Russ. Last HD on Sat, 2 days ago. K on admission is 5.5, creatinine 18.7. Plan: -Consulted Uke Operator, Dr. Russ, appreciate recs -HD tomorrow -Kayexalate 30g -Recheck potassium level #Polycythemia vera Hgb 17.2. Per Dr. Russ, patient is on home warfarin for polycythemia vera, and get phlebotomy during HD. Plan: -Monitor H&H -On Heparin PPx -Continue with HD plan by Dr. Russ #Hypertension History of hypertension. Pending meds recs Plan: -Labetalol 10mg Q6H prn -Pending meds recs Health Maintenance: Code status: Full DVT prophylaxis: Heparin GI prophylaxis: None Diet: Carb consistent renal Wahl: None Lines: PIV Supplemental O2: None Disposition: Tele bed Assessment and plan discussed with my attending physician Dr. Farah and Dr. Short (PGY-2). Dr. Faith (PGY-1) ? residential sales rep Attending Provider Attestation/Addendum I have seen and examined the patient. I was physically present for the gonzalez portions of the services provided including history, physical exam, diagnosis, treatment plans and orders. I agree with assessment and plan of care as documented by residents. After examination of the patient and review of the clinical data I feel that this patient needs admission to the hospital for further treatment/evaluation. Patient is a 49 years old male with past medical history of hypertension, ESRD on hemodialysis, CAD status post multiple stents, type 2 diabetes mellitus, previous toe amputation and right BKA who presented to the ED with complaint of pain and redness of left foot for 1 week. In the ED, he was found to have cortical bone destruction suspicion for osteomyelitis on left foot x-ray. General surgery was contacted by ED, who agreed to follow patient with us. We will admit the patient for management of acute osteomyelitis. We will obtain MRI left foot, start him on broad-spectrum IV antibiotics with vancomycin and Zosyn. We will also obtain blood culture. Discussed with nephrology, although patient was having issues with clotting in his fistula, he was able to continue with his hemodialysis sessions, will follow patient with us for hemodialysis arrangement, appreciate recommendation. Patient stated he has been on warfarin for polycythemia vera and clotting by his information receptionist. We will hold anticoagulation and keep him n.p.o. after midnight until evaluation by general surgery. Even though this this note was carefully revised there may still be minor errors in supervisor forming department due to voice recognition software. Nicki Farah MD
[2025-04-19 18:03] LABS: Reflex Lactate? Y
[2025-04-19] MEDS: SOD POLYSTYRENE SULFON SUSP 15 GM/60 ML BTL 30 GM PO (18:28)
[2025-04-19] MEDS: VANCOMYCIN/D5W 1500 MG IVPB 300 ML 120 MG IV (18:32)
[2025-04-19 18:45] LABS: Lactic Acid, 3 HR 1.8 mMol/L (0.4-2.0)
[2025-04-19 19:09] LABS: Troponin I 0.137 ng/mL (0.0-0.045)
[2025-04-19] MEDS: ATORVASTATIN CALCIUM 20 MG TABLET 80 MG PO (21:25)
[2025-04-19] MEDS: HEPARIN SOD INJ 5000 UNIT/ML VIAL SC (21:27)
[2025-04-19 21:45] LABS: Potassium 5.2 mMol/L (3.4-5.1)
[2025-04-20] VITALS (26 sets, daily range): BP systolic 104–164; BP diastolic 67–99; PULSE 76–93; RESP 16–95; TEMP 36.2–37.1; O2SAT 93–98; BMI 37.2
--- NOTE | 2025-04-20 | XR_ITS ---
Examination: MRI left foot, without contrast Date and time of exam: April 20, 2025, 0806 hours INDICATIONS: Redness swelling and pain in the foot beginning April 19, 2025 TECHNIQUE: Multiple axial sagittal coronal images left foot FINDINGS: Marked cortical bone destruction involving the distal half of the amputated fourth metatarsal with 3.2 x 1.9 cm abscess surrounding this metatarsal Cortical bone destruction involving the distal third metatarsal distal fourth metatarsal and to a lesser extent second metatarsal head Tarsal bones are intact Marked thickening of the Achilles tendon Impression: Osteomyelitis involving most of the amputated fourth metatarsal with 3.2 x 1.9 cm abscess surrounding this metatarsal Osteomyelitis distal third, fourth and second metatarsals
[2025-04-20] MEDS: ACETAMINOPHEN 325 MG TABLET 650 MG PO (00:50)
[2025-04-20 05:18] LABS: Basophils # (Auto) 0.1 Thou/mm3 (0.0-0.2); Basophils % (Auto) 1 % (0-2.5); Eosinophils # (Auto) 0.3 Thou/mm3 (0.0-0.5); Eosinophils % (Auto) 4 % (0-10); Hematocrit 47.0 % (41.0-53.0); Hemoglobin 14.6 g/dL (13.5-16.0); Immature Granulocytes Auto 0.03 Thou/mm3 (0.00-0.00); Lymphocytes # (Auto) 0.8 Thou/mm3 (1.0-4.8); Lymphocytes % (Auto) 12 % (10-50); Mean Corpuscular HGB Conc 31.1 g/dl (31.0-37.0); Mean Corpuscular Hemoglobin 25.4 pg (25.0-35.0); Mean Corpuscular Volume 82 fL (80-100); Monocytes # (Auto) 0.7 Thou/mm3 (0.0-0.8); Monocytes % (Auto) 10 % (0-12); Neutrophils # (Auto) 5.1 Thou/mm3 (1.8-7.7); Neutrophils % (Auto) 74 % (37-80); Nucleated Red Blood Cell # 0.00 Thou/mm3 (0.00-0.00); Nucleated Red Blood Cell % 0 /100 WBC (0); Platelet Count 251 Thou/mm3 (140-440); RDW Standard Deviation 53.7 fL (35.1-43.9); Red Blood Count 5.74 Miln/mm3 (4.50-5.90); White Blood Count 7.0 Thou/mm3 (3.8-10.6)
[2025-04-20 05:36] LABS: INR 1.5 (0.9-1.3); Partial Thromboplastin Time 33.3 Seconds (22.0-36.0); Prothrombin Time 15.1 Seconds (9.0-12.2)
[2025-04-20 05:43] LABS: Glucose Estimated Average 114 mg/dL (80-131); Hemoglobin A1C 5.6 % Hgb (4.8-6.0)
[2025-04-20 06:10] LABS: Alanine Aminotransferase 11 U/L (10-49); Albumin, Serum 3.7 gm/dL (3.5-5.0); Albumin/Globulin Ratio 1.5 (1.2-2.2); Alkaline Phosphatase 147 U/L (46-116); Anion Gap 17 (7-16); Aspartate Amino Transferase 14 U/L (0-34); BUN/Creatinine Ratio 3 Ratio (12-20); Bilirubin,Total 0.5 mg/dL (0.3-1.2); Blood Urea Nitrogen 66 mg/dL (9-23); Calcium 8.5 mg/dL (8.3-10.6); Calcium (Corrected) 8.7 mg/dL (8.5-10.1); Carbon Dioxide 23.8 mMol/L (20.0-31.0); Chloride 97 mMol/L (98-107); Creatinine (Component) 20.2 mg/dL (0.6-1.3); Estimated Creatinine Clearance 6.0 mL/min (>60); Globulin 2.5 gm/dL (2.3-3.5); Glucose 84 mg/dL (74-106); Magnesium 2.5 mg/dL (1.6-2.6); Osmolality,Calculated 293 (275-295); Phosphorous 5.1 mg/dL (2.4-5.1); Potassium 4.9 mMol/L (3.4-5.1); Sodium 138 mMol/L (136-145); Total Protein 6.2 gm/dL (5.7-8.2); eGFR 3 See Note
--- NOTE | 2025-04-20 09:50 | PD.SURCONS ---
HPI Consult details History of present illness: 49M with HLD, DM, ESRD, CAD and PAD s/p femoral stents, R BKA and amputation of left toes presenting with fever and pain of the left foot. Pt reports he follows with his confectionery maker Dr Rider who prescribed him 3 weeks of PO abx for an open wound, he completed those last week. In ER pt underwent xray showing osteomyelitis of the 3rd and 4th metatarsal, and possibly the 2nd. He feels well overall with pain manageable and has an appt with Dr Rider on 03/26 Review of Systems Review of Systems ROS Unobtainable: All systems reviewed & no additional complaints except as documented Meds Home Medications and Allergies Home Medications ?Medication ?Instructions ?Recorded ?Confirmed ?Type linagliptin 5 mg tablet (Tradjenta) 5 mg PO QDAY 08/21/23 04/19/25 History omeprazole 40 mg capsule,delayed 40 mg PO QDAY 08/21/23 04/19/25 History release sucroferric oxyhydroxide 500 mg 500 mg PO TID 08/21/23 04/19/25 History chewable tablet (Velphoro) warfarin 4 mg tablet 4 mg PO QDAY 04/19/25 04/19/25 History Allergies Allergy/AdvReac Type Severity Reaction Status Date / Time pollen extracts Allergy Severe Sneezing Verified 04/19/25 13:04 sulfamethoxazole (From Allergy Severe Hives Verified 04/19/25 13:04 Bactrim) trimethoprim (From Bactrim) Allergy Hives Verified 04/19/25 13:04 Exam Vital Signs Temp Pulse Resp BP Pulse Ox O2 Del Method 97.2 F 76 22 H 130/91 H 94 L Room Air 04/20/25 08:00 04/20/25 08:00 04/20/25 08:00 04/20/25 08:00 04/20/25 08:00 04/20/25 08:00 Constitutional Constitutional: no acute distress Routine Respiratory Exam Respiratory: Present no resp distress Routine Extremities Exam Comments: left foot with darkened skin at the base of the 2nd and 3rd toes, no erythema, no fluctuance or tenderness and no necrotic tissue or open wound Results Results: Laboratory Laboratory results: results reviewed Results: Imaging Imaging narrative: Xray foot reviewed Assessment & Plan Plan 49M with HLD, DM, ESRD, CAD and PAD s/p femoral stents, R BKA and amputation of left toes presenting with fever and pain of the left foot with imaging showing osteomyelitis of the 3rd and 4th metatarsals. I explained that based on the appearance of the foot he does not need any urgent intervention but may require TMA to clear the osteomyelitis. This is beyond my expertise so I asked IM to confer with Dr Rider regarding next best steps IV abx Appreciate Dr Rider recs Please contact me with concerns or questions
--- NOTE | 2025-04-20 11:01 | PC.NURSE ---
BFR TO 250 D/T INCREASED AP DESPITE ALL INTERVENTIONS. WILL ATTEMPT TO ADJUST NEEDLE AGAIN AND RESUME TX
--- NOTE | 2025-04-20 11:54 | PC.NURSE ---
TX PAUSED ALL BLOOD RETURNED D/T INCREASED REGISTRY NURSE DESPITE ALL INTERVENTIONS. POST RINSE BACK NOTED CLOTTING TO VENOUS CHAMBER
--- NOTE | 2025-04-20 11:59 | PC.NURSE ---
Addendum entered by Juan Alexander RN 04/20/25 11:59: UF GOAL INCREASED TOLERATED. TO ACCOUNT FOR FLUID ADMINISTERED IN NEW SET UP. WILL CONT. TO MONITOR Original Note: TX RESUMED W/O COMPLICATION. WILL CONT. TO MONITOR
--- NOTE | 2025-04-20 12:54 | PC.NURSE ---
TX PAUSED ALL BLOOD RETURNED D/T INCREASED HAND MOLD MAKER DESPITE ALL INTERVENTIONS, WILL RESTRING MACHINE AND ATTEMPT TO RESUME TX. PT W/ SCHEDULED APPT FOR AVF REVISION.
--- NOTE | 2025-04-20 12:56 | PC.NURSE ---
TX RESUMED W/O COMPLICATIONS, WILL CONT. TO MONITOR
[2025-04-20] MEDS: HEPARIN SOD INJ 5000 UNIT/ML VIAL SC ×2 (14:48→21:12)
--- NOTE | 2025-04-20 14:58 | ESPR_ITS ---
<Statement entered by Nate Short MD - 04/22/25 05:30> Patient was seen and examined at bedside. I agree on the assessment and plan on this note as documented by resident Dr Eve Faith DO PGY1. 49-year-old male with past medical history as below admitted for osteomyelitis confirmed on MRI, patient seen at bedside patient expressed that he really wants to follow-up with his primary metal bumper Dr. Quita Rider rather than undergoing any procedures at this facility and wants a second opinion, it was explained to him that the metal bumper he follows up does not have privileges at this hospital, case was discussed with general surgery who recommended reaching out to the primary metal bumper. Dr Rider was called and updated on patient's imaging findings and hospital course after getting permission from patient, Dr. Rider agrees with holding warfarin, expresses that patient should follow-up n.p.o. at his office morning for possible intervention. We discussed and updated the patient who is agreeable to plan, however we will wait for blood cultures to finalize, will continue with IV antibiotics for now and will wait for infectious disease specialist to see the patient tomorrow, Dr Rider is requesting a CD of MRI which after discussion with radiologist Dr. Ruggiero was procured for the patient and was given to the patient. Anticipate discharge in the next 24 hours Case discussed with attending Dr. Nicki Short MD PGY-2 Documentation for date of: 04/20/25 Subjective Subjective Interval history: Left foot is warm to the touch today, redness has not spread. Received HD inpatient today. Afebrile overnight. MRI foot show osteomyelitis most fourth metatarsal with 3.2 x 1.9 cm abscess surrounding, osteomyelitis distal 3rd, 4th and 2nd metatarsals.? Patient is currently on vancomycin and Zosyn for antibiotics.? Blood culture 04/19 pending. Consult ID, Dr. King, appreciate rec. Consult surgery, Dr. Jordan, appreciate recs: No need for urgent amputation at this time, might need TMA which we cannot provide, recommend reaching out to Dr. Metz, patient's metal bumper for further recommendation and if I&D is indicated. Discussed with patient's metal bumper, Dr. Rider, appreciate recs: Treat with antibiotics according to blood culture. ?Hold warfarin.? Plan for patient to see Dr. Ansari on on and Dr. Rider will decide if patient needs TMA.? Update nephrology, Dr. Russ, on plan: Continue treating patient with IV antibiotics via HD after discharge, 1 extra HD before seeing Dr. Metz on . Initially, patient hesitated on staying to get treatment according to current plan but ultimately agreed to stay and get antibiotic treatment. Exam Vital Signs Temp Pulse Resp BP Pulse Ox O2 Del Method 98.0 F 86 18 142/82 H 98 Room Air 04/20/25 13:30 04/20/25 13:30 04/20/25 13:30 04/20/25 13:30 04/20/25 13:30 04/20/25 08:00 Narrative Exam GENERAL APPEARANCE: awake and oriented x 3, well-developed, well-nourished HEENT: Normocephalic, atraumatic; pupils equal, round, reactive to light; EOMI; mucous membranes pink, moist; oropharynx clear NECK: Supple, large neck circumference LUNGS: Clear to auscultation bilaterally, breath sound equal bilaterally HEART: Tachycardia; normal S1, S2; no murmur ABDOMEN: No tenderness to palpation; normal BS; soft, no guarding, no rebound. EXTREMITIES: Right BKA, well healed; Left foot with 1st, 2nd, 3rd digits amputated; discoloration and mild erythema on skin over head of 4th metatarsal to 2nd metatarsal, tenderness to palpation from lateral sides of midfoot to top of metatarsals. Fistula on left upper arm, small scalp over proximal portion, decrease in vibration on proximal part NEUROLOGIC: awake; alert and oriented x3; cranial nerves II-XII grossly intact; no focal sensory or motor deficits PSYCHIATRIC: appropriate mood and affect SKIN: warm, dry, normal color; no rashes Objective Labs 04/20/25 04:14 04/20/25 04:14 Labs: Laboratory Results - last 24 hr 04/19/25 04/19/25 04/19/25 14:42 15:58 18:33 WBC 11.1 H RBC 6.67 H Hgb 17.2 H Hct 55.0 H MCV 83 MCH 25.8 MCHC 31.3 RDW Std Deviation 55.3 H Plt Count 249 Neut % (Auto) 84 H Lymph % (Auto) 9 L Moca % (Auto) 5 Eos % (Auto) 1 Baso % (Auto) 1 Neut # (Auto) 9.4 H Lymph # (Auto) 1.0 Moca # (Auto) 0.6 Eos # (Auto) 0.2 Baso # (Auto) 0.1 Immature Gran # (Auto) 0.03 H Absolute Nucleated RBC 0.00 Immature Gran % 0 Nucleated RBC % 0 ESR 60 H PT 14.2 H INR 1.4 H APTT 30.0 D Sodium 137 Potassium 5.5 H 5.2 H Chloride 95 L Carbon Dioxide 27.3 Anion Gap 15 BUN 60 H Creatinine 18.7 H* Estim Creat Clear Calc 6.4 L eGFR 3 L* BUN/Creatinine Ratio 3 L Glucose [address] Glu mg/dL Hemoglobin A1c Calculated Osmolality 290 Lactic Acid 3.5 H 1.8 Calcium 9.5 Corrected Calcium 9.5 Phosphorus 2.6 Magnesium 2.6 Total Bilirubin 0.5 AST 15 ALT 9 L Alkaline Phosphatase 152 H Lactate Dehydrogenase 237 Troponin I 0.139 H* 0.137 H* C-Reactive Prot, Quant 4.1 H B-Natriuretic Peptide 28 Total Protein 6.9 Albumin 4.2 Globulin 2.7 Albumin/Globulin Ratio 1.6 Lipase 100 H Procalcitonin 0.85 H 04/20/25 04:14 WBC 7.0 RBC 5.74 Hgb 14.6 D Hct 47.0 MCV 82 MCH 25.4 MCHC 31.1 RDW Std Deviation 53.7 H Plt Count 251 Neut % (Auto) 74 Lymph % (Auto) 12 Moca % (Auto) 10 Eos % (Auto) 4 Baso % (Auto) 1 Neut # (Auto) 5.1 Lymph # (Auto) 0.8 L Moca # (Auto) 0.7 Eos # (Auto) 0.3 Baso # (Auto) 0.1 Immature Gran # (Auto) 0.03 H Absolute Nucleated RBC 0.00 Immature Gran % 0 Nucleated RBC % 0 ESR PT 15.1 H INR 1.5 H APTT 33.3 Sodium 138 Potassium 4.9 Chloride 97 L Carbon Dioxide 23.8 Anion Gap 17 H BUN 66 H Creatinine 20.2 H* D Estim Creat Clear Calc 6.0 L eGFR 3 L* BUN/Creatinine Ratio [address] L Glucose [address] Glu mg/dL 114 Hemoglobin A1c 5.6 Calculated Osmolality 293 Lactic Acid Calcium 8.5 Corrected Calcium 8.7 Phosphorus 5.1 Magnesium 2.5 Total Bilirubin 0.5 AST 14 ALT 11 Alkaline Phosphatase 147 H Lactate Dehydrogenase Troponin I C-Reactive Prot, Quant B-Natriuretic Peptide Total Protein 6.2 Albumin 3.7 D Globulin 2.5 Albumin/Globulin Ratio 1.5 Lipase Procalcitonin Quality Measures Quality Measures VTE prophylaxis Assessment & Plan Assessment Current Active Medications: Generic Name Dose Route Start Last Admin Trade Name Freq PRN Reason Stop Dose Admin Acetaminophen 650 mg 04/19/25 17:35 04/20/25 00:50 Acetaminophen 325 Mg Tablet PO 05/19/25 17:34 650 mg Q6H PRN Administration Fever >100.4 and pain 1-3 Atorvastatin Calcium 80 mg 04/19/25 21:00 04/19/25 21:25 Atorvastatin Calcium 20 Mg Tablet PO 05/19/25 20:59 80 mg HS VINCENT Administration Dextrose 25 ml 04/19/25 18:14 Dextrose 50%-Water Inj 50 Ml Syringe IV 05/19/25 18:13 Q15MIN PRN BG 50-70 responsive npo pt Dextrose 50 ml 04/19/25 18:14 Dextrose 50%-Water Inj 50 Ml Syringe IV 05/19/25 18:13 Q15MIN PRN BG <50 OR BG <70 & pt unresponsive Glucagon 1 mg 04/19/25 18:14 Glucagon Inj 1 Mg Vial IM Q15MIN PRN BG <70, and no IV access Heparin Sodium (Porcine) 5,000 unit 04/19/25 22:00 04/20/25 14:48 Heparin Sod Inj 5000 Unit/Ml Vial SC 05/03/25 21:59 5,000 unit Q8HR VINCENT Administration Piperacillin Sod/Tazobactam 100 mls @ 200 mls/hr 04/20/25 03:00 04/20/25 03:00 Sod 4.5 gm/ Sodium Chloride IV 04/27/25 02:59 Not Given Q12HR [facility] Protocol Insulin Human Lispro 0 unit 04/20/25 07:30 04/20/25 13:41 Insulin Lispro (Admelog) 1 Unit/0.01 Ml Unit SC 05/20/25 07:29 Not Given AC [facility] Protocol Labetalol HCl 10 mg 04/19/25 18:27 Labetalol Inj 5 Mg/Ml Vial 20 Ml IVP 05/19/25 18:26 Q6H PRN SBP>180 DBP>110 HR>60 Non-Formulary Medication 1,500 mg 04/20/25 17:30 Velphoro PO 05/20/25 17:29 TIDWM VINCENT Ondansetron HCl 4 mg 04/19/25 17:35 Ondansetron Inj 2 Mg/Ml Inj 2 Ml IVP 05/19/25 17:34 Q6H PRN NAUSEA OR VOMITING Protocol Oxycodone/Acetaminophen 1 tab 04/19/25 17:40 Oxycodone/Apap 5/325 Tablet PO 04/24/25 17:39 Q6H PRN PAIN SCALE 4-10(Mod-Sev Pharmacy Consult 1 each 04/19/25 17:50 04/20/25 08:58 Vancomycin Pharmacy To Dose 1 Each Each IV 05/19/25 17:49 Not Given QDAY VINCENT Sennosides 1 tab 04/19/25 17:35 Senna Tablet PO 05/19/25 17:34 QDAY PRN constipation Protocol Plan Summary: 49-year-old male with past medical history of 6 trans-femoral stents (Dr. Bellamy), hypertension, ESRD on HD since 2019 T//Sat with Dr. Russ, T2DM complicated left toes amputation (2021 Dr. Rider) and right BKA (2020 Dr. Harvey) presents with pain and redness of left foot x 1 week. Admitted for osteomyelitis of left foot. #Osteomyelitis Left foot x-ray showed cortical bone destruction of distal half amputated fourth metatarsal, amputated end of third metatarsal, suspect early cortical bone destruction second metatarsal head. Patient recently finished a course of antibiotic for wound on left foot, managed by Dr. Rider. Last seen Dr. Rider 1 week ago. MRI foot show osteomyelitis most fourth metatarsal with 3.2 x 1.9 cm abscess surrounding, osteomyelitis distal 3rd, 4th and 2nd metatarsals.? Patient is currently on vancomycin and Zosyn for antibiotics.? Blood culture 04/19 pending. Plan: -Pending MRI -Consult ID, Dr. King, appreciate rec. -Consult surgery, Dr. Jordan, appreciate recs: No need for urgent amputation at this time, might need TMA which we cannot provide, recommend reaching out to Dr. Metz, patient's metal bumper for further recommendation and if I&D is indicated. -Consult podiatry, Dr. Rider, appreciate recs: Treat with antibiotics according to blood culture. ?Hold warfarin.? Plan for patient to see Dr. Ansari on on and Dr. Rider will decide if patient needs TMA.? -Update nephrology, Dr. Russ, on plan: Continue treating patient with IV antibiotics via HD after discharge, 1 extra HD before seeing Dr. Metz on . -Pending blood culture -Continue Zosyn, Vanc #ESRD ESRD on HD since [address] Russ. Last HD on Sat, 2 days ago. K on admission is 5.5, creatinine 18.7. 04/20: HD today by Dr. Russ Plan: -Consulted Electrical Integrator, Dr. Russ, appreciate recs -Monitor BMP #Polycythemia vera Hgb 17.2. Per Dr. Russ, patient is on home warfarin for polycythemia vera, and get phlebotomy during HD. Plan: -Hold home warfarin -Monitor H&H -On Heparin PPx -Continue with HD plan by Dr. Russ #Hypertension History of hypertension. Pending meds recs Plan: -Labetalol 10mg Q6H prn -Continue HD for fluid management Health Maintenance: Code status: Full DVT prophylaxis: Heparin GI prophylaxis: None Diet: Carb consistent renal Wahl: None Lines: PIV Supplemental O2: None Disposition: Tele bed Assessment and plan discussed with my attending physician Dr. Farah and Dr. Short (PGY-2). Dr. Faith (PGY-1) ? vice president quality improvement Attending Provider Attestation/Addendum I have seen and examined the patient. I was physically present for the gonzalez portions of the services provided including history, physical exam, diagnosis, treatment plans and orders. I agree with assessment and plan of care as documented by residents. Patient seen and examined at bedside this morning during hemodialysis. Appears comfortable, tolerating hemodialysis well. Vital signs are stable except for mild hypertension. Lab results show improving WBC, hemoglobin. As elevated ESR and CRP. Also had elevated creatinine before dialysis. Foot MRI showed osteomyelitis involving most of the amputated fourth metatarsal with 3.2 x 1.9 cm abscess surrounding the metatarsal. There is also osteomyelitis of distal 3rd, 4th and 2nd metatarsals. Blood culture has been pending and negative so far. General surgery following closely, recommended to reach out to patient's podiatry for possible surgical intervention. Discussed with patient's metal bumper, agreed on discharging patient after blood culture negative for 48 hours. Patient will follow outpatient podiatry and will be evaluated for possible surgical intervention versus continuation of antibiotic therapy, appreciate both recommendations. Continues to be on vancomycin and Zosyn. We will also obtain infectious disease consultation. Even though this this note was carefully revised there may still be minor errors in cigarette and filter chief inspector due to voice recognition software. Nicki Farah MD
--- NOTE | 2025-04-20 16:10 | PC.SS ---
SS met with patient regarding his d/c plan. Pt is alert/oriented. Pt was admitted for Osteomyelitis. Pt confirmed demographic and contact information is correct on facesheet. Pt resides with both parents. Pt ambulates independently without assistance or DME. Pt is ok with all ADLs. Patient?s pharmacy of choice is [facility]. Pt named his sister, Korin Rutledge medical decision maker if he is unable. Patient?s choice is to return home upon d/c. Pt states he is diabetic, has glucometer, and test strips. Pt is established at [facility] with Dr. Russ Saturday and Saturday at 5:30am and utilizes transportation. Pt followed up with PCP on February 12, 2025. SS spoke to Orly from [facility] who states patient's next appointment is May 14, [address] Conrad Garduno. SS scheduled pt a follow up appointment for Saturday at 3:45pm with Dr. Conrad Garduno. provided pt with [employer] with appointment time, date, and location ( was present). Per pt, he also has a follow up appointment with his Patient Financial Advocate, Dr. Rider at [facility]. D/C plan: Return home Next of Kin: Korin Rutledge, sister, phone# [phone] PCP: Dr. Conrad Garduno Address: Correct on facesheet
[2025-04-20] MEDS: ATORVASTATIN CALCIUM 20 MG TABLET 80 MG PO (20:53)
[2025-04-20] MEDS: PIPER/TAZO INJ 4.5 GM in SODIUM CHLORIDE 0.9% (POP) 100 ML IV (20:56)
[2025-04-21] VITALS (26 sets, daily range): BP systolic 97–151; BP diastolic 46–88; PULSE 72–98; RESP 16–99; TEMP 36.1–36.6; O2SAT 93–99; BMI 37.2
[2025-04-21 05:14] LABS: Basophils # (Auto) 0.1 Thou/mm3 (0.0-0.2); Basophils % (Auto) 1 % (0-2.5); Eosinophils # (Auto) 0.4 Thou/mm3 (0.0-0.5); Eosinophils % (Auto) 5 % (0-10); Hematocrit 48.8 % (41.0-53.0); Hemoglobin 14.9 g/dL (13.5-16.0); Immature Granulocytes Auto 0.02 Thou/mm3 (0.00-0.00); Lymphocytes # (Auto) 1.3 Thou/mm3 (1.0-4.8); Lymphocytes % (Auto) 15 % (10-50); Mean Corpuscular HGB Conc 30.5 g/dl (31.0-37.0); Mean Corpuscular Hemoglobin 25.1 pg (25.0-35.0); Mean Corpuscular Volume 82 fL (80-100); Monocytes # (Auto) 1.0 Thou/mm3 (0.0-0.8); Monocytes % (Auto) 12 % (0-12); Neutrophils # (Auto) 5.6 Thou/mm3 (1.8-7.7); Neutrophils % (Auto) 67 % (37-80); Nucleated Red Blood Cell # 0.00 Thou/mm3 (0.00-0.00); Nucleated Red Blood Cell % 0 /100 WBC (0); Platelet Count 216 Thou/mm3 (140-440); RDW Standard Deviation 54.0 fL (35.1-43.9); Red Blood Count 5.93 Miln/mm3 (4.50-5.90); White Blood Count 8.3 Thou/mm3 (3.8-10.6)
[2025-04-21 05:17] LABS: INR 1.4 (0.9-1.3); Partial Thromboplastin Time 33.2 Seconds (22.0-36.0); Prothrombin Time 14.1 Seconds (9.0-12.2)
[2025-04-21] MEDS: HEPARIN SOD INJ 5000 UNIT/ML VIAL SC ×2 (05:34→14:08)
[2025-04-21 06:05] LABS: Alanine Aminotransferase 16 U/L (10-49); Albumin, Serum 3.9 gm/dL (3.5-5.0); Albumin/Globulin Ratio 1.4 (1.2-2.2); Alkaline Phosphatase 156 U/L (46-116); Anion Gap 15 (7-16); Aspartate Amino Transferase 21 U/L (0-34); BUN/Creatinine Ratio 3 Ratio (12-20); Bilirubin,Total 0.5 mg/dL (0.3-1.2); Blood Urea Nitrogen 48 mg/dL (9-23); Calcium 8.8 mg/dL (8.3-10.6); Calcium (Corrected) 8.9 mg/dL (8.5-10.1); Carbon Dioxide 26.3 mMol/L (20.0-31.0); Chloride 98 mMol/L (98-107); Creatinine (Component) 17.1 mg/dL (0.6-1.3); Estimated Creatinine Clearance 7.1 mL/min (>60); Globulin 2.8 gm/dL (2.3-3.5); Glucose 107 mg/dL (74-106); Magnesium 2.4 mg/dL (1.6-2.6); Osmolality,Calculated 290 (275-295); Phosphorous 6.3 mg/dL (2.4-5.1); Potassium 4.6 mMol/L (3.4-5.1); Sodium 139 mMol/L (136-145); Total Protein 6.7 gm/dL (5.7-8.2); Vancomycin,Random 16.1 mcg/mL; eGFR 3 See Note
--- NOTE | 2025-04-21 09:24 | PC.SS ---
Addendum entered by Celine Aguayo 04/21/25 14:47: SS has faxed Dr. Oswald's note and event note from the resident physician to [facility]. Charline from [facility] has confirmed she has received physicians note for pt requiring IV antibiotic during dialysis and will inform Dr. Russ. Original Note: Follow up note: SS spoke to Jennifer from [facility] who is aware pt will require IV antibiotic during dialysis and is pending Dr. Oswald's recommendations. Per Jennifer, once IV antibiotic information is received then they can possibly order antibiotic for the next day.
--- NOTE | 2025-04-21 10:16 | PC.NURSE ---
BP TRENDING DOWN, UF GOAL LOWERED TO 3.5L TOLERATED, WILL CONT. TO MONITOR
--- NOTE | 2025-04-21 10:27 | PC.NURSE ---
BP CONT. TO TREND DOWN, PT DENIES ALL S/S OF HYPOTENSION WILL ADMIN PRN ALBUMIN AND CONT. TO MONITOR
[2025-04-21] MEDS: ALBUMIN HUMAN-KJDA 25% IVPB 25 GM/100 ML BTL IV (10:31)
--- NOTE | 2025-04-21 11:01 | PC.NURSE ---
BP CONT'S. TO TREND DOWN, PT REMAINS ASYMPTOMATIC AND DENIES ALL COMPLAINTS, UF GOAL LOWERED TO 3L TOLERATED, WILL CONT. TO MONITOR
[2025-04-21] MEDS: PIPER/TAZO INJ 4.5 GM in SODIUM CHLORIDE 0.9% (POP) 100 ML IV (12:17)
--- NOTE | 2025-04-21 12:43 | PC.NURSE ---
When taking pts vitals signs, BLOOD BANK BUSINESS MANAGER noticed pt was about to take home meds Omeprazole 40mg, Tradjenta 5mg, and Atorvastatin 80mg. RN was notified and RN notified MD. Asked MD if he would like to order medications here so RN can administer, no new medications ordered at this time. Advised pt that does not want pt taking home medications and is not ordering med to be given here. Pt states he will take them when he gets home later today but wants to keep medications at bedside.
[2025-04-21] MEDS: VANCOMYCIN/NS 500 MG IVPB 100 ML 120 MG IV (13:02)
--- NOTE | 2025-04-21 13:56 | PD.IDPROG ---
Subjective Subjective Interval history: asked to see urgently by primary team. hx of txp in past other problems noted. cad, etc. no antirejection rx ongoing. primary desires empiric rx for osteo by xray. follows with dr rg in [place]. Exam Vital Signs Temp Pulse Resp BP Pulse Ox O2 Del Method 97.3 F 84 16 116/79 95 Room Air 04/21/25 12:00 04/21/25 12:00 04/21/25 12:00 04/21/25 12:00 04/21/25 12:00 04/21/25 12:00 Objective - Internal Medicine Labs 04/21/25 04:30 04/21/25 04:30 Labs: Laboratory Results - last 24 hr 04/21/25 04:30 WBC 8.3 RBC 5.93 H Hgb 14.9 Hct 48.8 MCV 82 MCH 25.1 MCHC 30.5 L RDW Std Deviation 54.0 H Plt Count 216 D Neut % (Auto) 67 Lymph % (Auto) 15 Mathews % (Auto) 12 Eos % (Auto) 5 Baso % (Auto) 1 Neut # (Auto) 5.6 Lymph # (Auto) 1.3 Mathews # (Auto) 1.0 H Eos # (Auto) 0.4 Baso # (Auto) 0.1 Immature Gran # (Auto) 0.02 H Absolute Nucleated RBC 0.00 Immature Gran % 0 Nucleated RBC % 0 PT 14.1 H INR 1.4 H APTT 33.2 Sodium 139 Potassium 4.6 Chloride 98 Carbon Dioxide 26.3 Anion Gap 15 BUN 48 H Creatinine 17.1 H* D Estim Creat Clear Calc 7.1 L eGFR 3 L* BUN/Creatinine Ratio 3 L Glucose 107 H Calculated Osmolality 290 Calcium 8.8 Corrected Calcium 8.9 Phosphorus 6.3 H Magnesium 2.4 Total Bilirubin 0.5 AST 21 ALT 16 Alkaline Phosphatase 156 H Total Protein 6.7 Albumin 3.9 Globulin 2.8 Albumin/Globulin Ratio 1.4 Random Vancomycin 16.1 Assessment & Plan A&P Narrative osteo of foot by x ray reading with esr 60 and crp 4.1 noted. dm II ckd 5 ok for ancef with hd and vanco with hd if he goes to that. labs suggest he may not go that often. will see saturday if still here at that time. I will be away kimber this week. I have a medical procedure myself to attend to ok for home on ancef and vanco with hd empirically. will also screen for vascular disease with his hx . prior hiv neg and hep c repeatedly neg bno noted risk factors for hiv Time Spent With Patient Time: Total time spent is greater than 50% in coordination of care (as documented) at patient's floor/unit and/or counseling patient:
--- NOTE | 2025-04-21 14:12 | XR_ITS ---
Examination: Arterial duplex lower extremity study. Date and time of exam: April 21, 2025, 1616 hours INDICATIONS: Nonhealing wound left foot 3 weeks Findings: Duplex sonographic imaging of the lower extremity arteries using B-mode/Bishop scale imaging and Doppler spectral analysis and color flow. Ankle brachial indices have been recorded. Right common femoral artery demonstrates triphasic flow. Right superficial femoral artery demonstrates triphasic flow. Right popliteal artery demonstrates biphasic flow. Right posterior tibial artery demonstrated monophasic flow. Ankle brachial index 1.2 Left common femoral artery demonstrates triphasic flow. Left superficial femoral artery demonstrates triphasic flow. Left popliteal artery demonstrates triphasic flow. Left posterior tibial artery demonstrated monophasic flow. Left arm dialysis port precludes RICHARD on the left. Impression: Findings are consistent with obstructive arterial disease involving the trifurcation arteries below the knees Consider correlation with CTA abdominal aorta iliofemoral runoff
--- NOTE | 2025-04-21 14:15 | PD.ADDPROG ---
Addendum Progress Note Addendum Date of report being addended: 04/21/25 Narrative: oe enign. rt bka noted. L 3 toes missing 1,2,3, with osteo of 3 and 4 met by imaging
--- NOTE | 2025-04-21 14:23 | EVENTNT_ITS ---
Documentation for date of: 04/21/25 Event Note Event Note: 49-year-old male with past medical history of CVA status post stents (Dr. Bellamy), hypertension, ESRD on HD since 2019 T//Sat with Dr. Russ, T2DM complicated left toes amputation (2021 Dr. Rider) and right BKA (2020 Dr. Harvey) presents with pain and redness of left foot x 1 week. Admitted for osteomyelitis of left foot confirmed on MRI. Was seen by infectious disease today Discussed with ID, recommended cefazolin 2 g and vancomycin 1250 mg with hemodialysis empirically for 6 weeks till Jun 02 2025 Case discussed with Attending Physician Dr. Nicki Short MD Internal Medicine PGY-2 Disclaimer: This note was dictated by speech recognition. Minor errors in convertible power shovel operator may be present due to voice recognition software.
--- NOTE | 2025-04-21 14:38 | ESCONSULT_ITS ---
RE: HECTOR JUSTICE : 1975 DATE OF CONSULTATION: 04/21/2025 REFERRING PHYSICIAN: Dr. Farah. REASON FOR CONSULTATION: Diabetes, peripheral vascular disease, and impaired circulation in a 49-year-old male. HISTORY OF PRESENT ILLNESS: Patient is 49 years old. I saw him a couple of years ago. So he probably already has had a HIV and hep C test. Plus he is on dialysis, so they usually have a hepatitis panel before every discharge. PAST SURGICAL HISTORY: Includes a right [id number] amputation about 2021 and a left 3 toes removed on the left foot about 2022. Now he has osteo of the fourth toe, fourth metatarsal, third and fourth metatarsal by imaging. He was tried on some p.o. antibiotics by vending machine coin collector who he is due to see him tomorrow. He hopes to go home tomorrow or today at the discretion of the primary team. He is on vancomycin with dialysis. I am going to change his Zosyn to Ancef and get that with dialysis 2 g with each dialysis or 1 g a day. He had a negative [place] fever test and a negative hepatitis test. His HIV test was negative in 2020. Hep C test was negative in the past and is currently as well. He has several other health problems including his diabetes which is probably the cause of his kidney failure. And he takes medication for hyperlipidemia. He has not had a kidney transplant although he hopes to have one in the near future. He is waiting a decision on that. He is on variety of medications. His creatinine is a bit high for someone who goes to dialysis regularly, he does apparently attend regular dialysis regularly. I have received several texts regarding the urgency with which I need to see this gentleman so I am going to see him as quickly as possible. His medical problems include diabetes, chronic kidney disease, and probable peripheral vascular disease. He has osteomyelitis of the left foot by imaging. Sed rate is 16 and his CRP is 4.1. He has been on some oral therapy prescribed by his primary doctor. That is acceptable. I am going to go ahead and give him some antibiotics with dialysis. Ancef and vancomycin can be given with dialysis. We do not have any cultures to guide us. All blood cultures are negative. So the treatment is somewhat empirical. He is advised that treatment may not work because circulation is often severely impaired with diabetes but we will check an RICHARD just in case. Please note that vascular people can usually only help with large vessel disease. Small vessel disease is a more difficult problem and often out of their scope. I will check on him on Saturday if he remains but if he goes home before then I have no objections. DT: 14:13:13 TT: 14:37:00 Ref: [id number] - TID: [id number] [facility]
--- NOTE | 2025-04-21 15:56 | ESDS_ITS ---
<Statement entered by Nate Short MD - 04/22/25 06:09> Patient was seen and examined by me personally. I have reviewed the below documentation by the team resident and agree with its findings. Discharge plan was discussed with the attending, Dr. Nicki Short MD Internal Medicine, PGY-2 Planned Discharge Date 04/21/25 DS: Providers Provider Date of admission: 04/19/25 17:59 Primary care physician: Conrad Garduno MD Admitting Provider: Nicki Farah MD Attending Provider on Admission: Nicki Farah MD Consults: 04/19/25 15:39 Consult to General Surgery Stat Comment: Consulting Provider: Charline Jordan 04/19/25 15:40 Consult to Nephrology Stat Comment: Consulting Provider: Dee Russ 04/19/25 18:18 Referral Wound Care Routine Comment: 04/20/25 09:41 Consult to Infectious Diseases Routine Comment: Left Foot Osteo Consulting Provider: Messi King Attending Provider on DC: Nicki Guardado MD Discharging Provider: Eve Faith MD DS: Diagnosis Problem List Completed Was Problem List Reviewed/Reconciled?: Yes Hospital Course Hospital Course Hospital course: 49-year-old male with past medical history of CVA status post stents (Dr. Bellamy), hypertension, ESRD on HD since 2019 T//Sat with Dr. Russ, T2DM complicated left toes amputation (2021 Dr. Rider) and right BKA (2020 Dr. Harvey) presents with pain and redness of left foot x 1 week. Admitted for osteomyelitis of left foot confirmed on MRI. In hospital, patient received HD and started on vancomycin and Zosyn. Blood culture 04/19 negative after 48 hours. Consult ID, Dr. King, rec. Ancef and vancomycin during HD outpatient. Consult surgery, Dr. Jordan, appreciate recs: No need for urgent amputation at this time, might need TMA which we cannot provide, recommend reaching out to Dr. Metz, patient's drill runner helper for further recommendation and if I&D is indicated. Discussed with patient's drill runner helper, Dr. Rider, appreciate recs: Treat with antibiotics according to blood culture. ?Hold warfarin.? Plan for patient to see Dr. Rider on on and Dr. Rider will decide if patient needs TMA.? Update nephrology, Dr. Russ, on plan: Continue treating patient with IV antibiotics via HD after discharge, 1 extra HD before seeing Dr. Metz on . Patient is stable and medically cleared for discharge. Plan above is discussed with patient. Patient showed understanding and agreed. #Osteomyelitis #ESRD #Polycythemia vera #Hypertension Instruction: You have been started on the following medications: -cefazolin 2 g and vancomycin 1250 mg with hemodialysis empirically for 6 weeks until Jun 02 2025 The following medications have been STOPPED: -Warfarin, do not resume until instructed otherwise Please continue with all other medications as previously prescribed Please follow up with your primary doctor in 7-10 days. Please follow up with Dr. Johnson tomorrow morning. Do not eat or drink anything after midnight. Do not take warfarin tonight/tomorrow. Return to ED if you develop new or worsening symptoms. Health Maintenance: Code status: Full DVT prophylaxis: Heparin GI prophylaxis: None Diet: Carb consistent renal Wahl: None Lines: PIV Supplemental O2: None Disposition: Tele bed Assessment and plan discussed with my attending physician Dr. Farah and Dr. Short (PGY-2). Dr. Faith (PGY-1) ? resident program specialist Status at Discharge Overall status at discharge: patient is progressing back to baseline Time Spent with Patient Time attestation: Total time spent providing and/or coordinating discharge services: 40 minutes Time spent: Greater than 30 minutes Exam Vital Signs Temp Pulse Resp BP Pulse Ox O2 Del Method 97.3 F 84 16 116/79 95 Room Air 04/21/25 12:00 04/21/25 12:00 04/21/25 12:00 04/21/25 12:04/21/25 12:04/21/25 12:00 Narrative Exam GENERAL APPEARANCE: awake and oriented x 3, well-developed, well-nourished HEENT: Normocephalic, atraumatic; pupils equal, round, reactive to light; EOMI; mucous membranes pink, moist; oropharynx clear NECK: Supple, large neck circumference LUNGS: Clear to auscultation bilaterally, breath sound equal bilaterally HEART: Tachycardia; normal S1, S2; no murmur ABDOMEN: No tenderness to palpation; normal BS; soft, no guarding, no rebound. EXTREMITIES: Right BKA, well healed; Left foot with 1st, 2nd, 3rd digits amputated; discoloration and mild erythema on skin over head of 4th metatarsal to 2nd metatarsal, tenderness to palpation from lateral sides of midfoot to top of metatarsals. Fistula on left upper arm, small scalp over proximal portion, decrease in vibration on proximal part NEUROLOGIC: awake; alert and oriented x3; cranial nerves II-XII grossly intact; no focal sensory or motor deficits PSYCHIATRIC: appropriate mood and affect SKIN: warm, dry, normal color; no rashes Discharge Plan Plan Patient Disposition: HOME (Self Care) Patient condition on transfer: Stable Care Plan Goals: You have been started on the following medications: -cefazolin 2 g and vancomycin 1250 mg with hemodialysis empirically for 6 weeks until Jun 02 2025 The following medications have been STOPPED: -Warfarin, do not resume until instructed otherwise Please continue with all other medications as previously prescribed Please follow up with your primary doctor in 7-10 days. Please follow up with Dr. Johnson tomorrow morning. Do not eat or drink anything after midnight. Do not take warfarin tonight/tomorrow. Return to ED if you develop new or worsening symptoms. Prescriptions/Referrals Prescriptions/Med Rec: Continued omeprazole 40 mg capsule,delayed release(DR/EC) 40 mg PO QDAY Tradjenta 5 mg tablet 5 mg PO QDAY Patient Comments: TAKE 1 TABLET BY MOUTH EVERY DAY Velphoro 500 mg tablet,chewable 500 mg PO TID Patient Comments: TAKE 2 TABLETS BY MOUTH WITH MEALS THREE TIMES DAILY Rx Instructions: WITH MEALS hydrocodone-acetaminophen 5-325 mg tablet 1 tab PO Q8H MDD 3 PRN (Reason: pain) Qty: 14 0RF atorvastatin 80 mg tablet 80 mg PO HS 30 Days Qty: 30 2RF midodrine 5 mg Tablet 10 mg PO TID PRN (Reason: hypotension) Qty: 30 0RF Discontinued warfarin 4 mg tablet 4 mg PO QDAY Patient Comments: TAKE 1 TABLET BY MOUTH EVERY EVENING FOR 15 DAYS Referrals: Conrad Garduno MD [Primary Care Provider, Family Practice] Patient/Caregiver Discharge Instructions Discharge Activity: activity as tolerated Education Materials: Osteomyelitis Dc Print Language: Emirati Stand Alone Forms: Orin Award Info., Patient Portal Info Letter Discharge Order Discharge Orders: Discharge (Routine); Ordered 04/21/25 Ordered By: Nuno Gutierrez Quality Discharge Quality Measures VTE prophylaxis Attestestation MD Attestation I have seen and examined the patient. I was physically present for the gonzalez portions of the services provided including history, physical exam, diagnosis, treatment plans and orders. I agree with assessment and plan of care as document ed by residents. Even though this this note was carefully revised there may still be minor errors in federal air marshal due to voice recognition software. Nicki Farah MD
--- NOTE | 2025-04-22 14:28 | ESCONSULT_ITS ---
RE: [employer] : 1975 DATE OF CONSULTATION: 04/20/2025 REASON FOR REFERRAL: ESRD management. REFERRING PHYSICIAN: Dr. Short. HISTORY OF PRESENT ILLNESS: This patient is a 49 year old [place] gentleman with past medical history significant for type 2 diabetes for more than 20 years with diabetic neuropathy and nephropathy, hypertension, ESRD on dialysis since 2019 every Saturday, , and Saturday who was admitted to the hospital yesterday for chills and shaking. Further investigation revealed that he has an extensive osteomyelitis on his left foot. An MRI showed osteomyelitis, on left foot with a 3.2 x 1.9 cm abscess surrounding the osteomyelitis involving distal second, third, and fourth metatarsals. Patient was started on vancomycin and Zosyn. Earlier today, Dr. 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 There is a plan to give him antibiotics through dialysis after discharge and then will be seen at [facility] for an extensive procedure. Earlier today he was dialyzed and about 3.3 liters of fluid was removed. He, however, clotted his system twice. His next dialysis will be tomorrow in preparation for his procedure on . He is doing quite well and his is by his bedside. PAST MEDICAL HISTORY: As previously mentioned, ESRD, diabetes, hypertension, NSTEMI, CAD, CHF. PAST SURGICAL HISTORY: left AV fistula placement and right BKA. PHYSICAL EXAMINATION: GENERAL: He is awake, alert, and oriented. by the bedside. VITAL SIGNS: Blood pressure of 104/67, heart rate of 89, and O2 sat of 94 on room air. HEENT: Anicteric sclerae, normocephalic. NECK: Supple, no JVD. CHEST AND LUNGS: Symmetric expansion, clear breath sounds. HEART: S1, S2 without murmur. ABDOMEN: Soft and nontender. EXTREMITIES: Right BKA. Left second, third, and fourth metatarsals are erythematous and tender. CURRENT MEDICATIONS: 1. Atorvastatin 80 mg daily. 2. Lactated Ringer's solution. 3. Heparin 5000 units subcutaneously q. 8 hours. 4. Lispro. 5. Labetalol p.r.n. 6. Ondansetron. 7. Oxycodone. 8. Senna. 9. Kayexalate. LABORATORY DATA: Hemoglobin is 14.6, WBC 7000, and platelet count 151,000. Sodium 138, potassium 4.9, chloride 97, CO2 of 23.8, BUN 66, creatinine 11.2, and glucose 84. ASSESSMENT: 1. ESRD 2. Type 2 Diabetes 3. Polycythemia 4. Left foot osteomyelitis 5. S/P Right BKA PLANS Patient will be be dialyzed tomorrow in preparation for his left foot I and D at [facility]. His Vancomycin and Zosyn were started at [facility] and will be continued while at [facility]. DT: 22:51:03 TT: 23:27:00 Ref: [id number] - TID: [id number] MTDD
== END 2025-04-21 17:45 | disposition home or self-care (01) | DRG 637 ==
LOC: SERX 16:09 → SERHOLD 18:01 → S2NX 22:49 → S3SX 04-20 12:09
PROVIDERS: Registered Nurse General Practice; Admitting Provider Student in an Organized Health Care Education/Training Program; Emergency Provider Emergency Medicine; PCP Family Medicine; Visit Provider Student in an Organized Health Care Education/Training Program
DX: E11.69 Type 2 diabetes mellitus with other specified complication (principal); N18.6 End stage renal disease; I12.0 Hypertensive chronic kidney disease with stage 5 chronic kidney disease or end stage renal disease; M86.8X7 Other osteomyelitis, ankle and foot; Z99.2 Dependence on renal dialysis; Z89.511 Acquired absence of right leg below knee; E11.22 Type 2 diabetes mellitus with diabetic chronic kidney disease; E03.9 Hypothyroidism, unspecified; D45 Polycythemia vera; E11.51 Type 2 diabetes mellitus with diabetic peripheral angiopathy without gangrene; Z79.01 Long term (current) use of anticoagulants; Z86.73 Personal history of transient ischemic attack (TIA), and cerebral infarction without residual deficits; Z87.891 Personal history of nicotine dependence
CPT/HCPCS: 36415; 73630; 73718; 80053; 80069; 80202; 81001; 83036; 83605; 83615; 83690; 83735; 83880; 84100; 84132; 84145; 84484; 85025; 85610; 85652; 85730; 86140; 87040; 87635; 93005; 93922; 96361; 96365; 96366; 99284; J0131; J1644; J2543; J3373; J7120; P9047; A9270; P0947